=== PATIENT | female | born 1930 | race Caucasian/White ===

== ENCOUNTER 2016-12-24 09:19 | Inpatient (IN) | payer OTHER ==
--- NOTE | 2016-12-24 09:55 | PDOC ---
History of Present Illness - General History Source: Patient, Family Exam Limitations: No Limitations - History of Present Illness Initial Comments: 12/24/16 10:25 The patient is a 86 year old female, with a significant past medical history of hypertension and hyperlipidemia, who presents to the emergency department complaining of left leg and pelvic pain s/p mechanical fall last night. The patient reports she was walking down her hallway, when suddenly she fell. Patient reports she was unable to get up on her own, and asked for assistance from her children. She denies any head trauma or LOC. Patient reports left leg pain and pelvic pain radiating into back s/p fall. She reports difficulty ambulating. As per son, the patient went to bed hoping she would wake up better , but she continued to have leg pain and was brought to the ED. Son reports noting ecchymosis to the right ankle, but states patient is able to bare weight on her right leg and not her left leg. Patient reports taking advil with no relief. The patient denies any chest pain, shortness of breath, diaphoresis, or palpitations. The patient denies any fever, chills, headache, dizziness, or changes in vision. The patient is on 1 baby aspirin per day. Allergies: None reported. Past Surgical History: None reported. Social History: Non-smoker. Denies alcohol or drug use. PCP: Dr. Lindo <Kimberly Williamson - Last Filed: 12/24/16 15:56> <Melissa Grullon - Last Filed: 12/24/16 16:11> - General Chief Complaint: Injury Stated Complaint: FALL Time Seen by Provider: 12/24/16 09:27 Past History <Kimberly Williamson - Last Filed: 12/24/16 15:56> - Past Medical History HTN: Yes Hypercholesterolemia: Yes - Psycho/Social/Smoking Cessation Hx Anxiety: No Suicidal Ideation: No Smoking History: Never smoked Have you smoked in the past 12 months: No Information on smoking cessation initiated: No Hx Alcohol Use: No Drug/Substance Use Hx: No Substance Use Type: None <Melissa Grullon - Last Filed: 12/24/16 16:11> - Past Medical History Allergies/Adverse Reactions: Allergies Allergy/AdvReac Type Severity Reaction Status Date / Time No Known Allergies Allergy Verified 12/24/16 09:26 Home Medications: Ambulatory Orders Aspirin [ASA -] 81 mg PO DAILY 12/24/16 Lisinopril 0 mg PO DAILY 12/24/16 Nifedipine [Nifedipine ER] 60 mg PO DAILY 12/24/16 Review of Systems - Review of Systems Able to Perform ROS?: Yes Comments:: 12/24/16 10:25 GENERAL/CONSTITUTIONAL: No fever or chills. No weakness. HEAD, EYES, EARS, NOSE AND THROAT: No change in vision. No ear pain or discharge. No sore throat. CARDIOVASCULAR: No chest pain or shortness of breath. RESPIRATORY: No cough, wheezing, or hemoptysis. GASTROINTESTINAL: No nausea, vomiting, diarrhea or constipation. GENITOURINARY: No dysuria, frequency, or change in urination. MUSCULOSKELETAL: Yes: +left leg pain, +pelvic pain, +back pain. No neck pain. SKIN: +Ecchymosis to the right ankle. No rash NEUROLOGIC: No headache, vertigo, loss of consciousness, or change in strength/ sensation. ENDOCRINE: No increased thirst. No abnormal weight change. HEMATOLOGIC/LYMPHATIC: No anemia, easy bleeding, or history of blood clots. ALLERGIC/IMMUNOLOGIC: No hives or skin allergy. <Kimberly Williamson - Last Filed: 12/24/16 15:56> *Physical Exam - Vital Signs Last Vital Signs Temp Pulse Resp BP Pulse Ox 98.1 F 96 H 20 200/82 100 12/24/16 09:27 12/24/16 09:27 12/24/16 09:27 12/24/16 09:27 12/24/16 09:27 - Physical Exam Comments: 12/24/16 10:25 GENERAL: Awake, alert, and fully oriented, in no acute distress HEAD: No signs of trauma EYES: PERRLA, EOMI, sclera anicteric, conjunctiva clear ENT: Auricles normal inspection, hearing grossly normal, nares patent, oropharynx clear without exudates. Moist mucosa NECK: Normal ROM, supple, no lymphadenopathy, JVD, or masses LUNGS: Breath sounds equal, clear to auscultation bilaterally. No wheezes, and no crackles HEART: Regular rate and rhythm, normal S1 and S2, no murmurs, rubs or gallops ABDOMEN: Soft, nontender, normoactive bowel sounds. No guarding, no rebound. No masses EXTREMITIES: Pain is elicited on forward flexion of the left hip. Ecchymosis of the right ankle. Distal fibular tenderness. No edema. No clubbing or cyanosis. No cords, erythema, or tenderness NEUROLOGICAL: Cranial nerves II through XII grossly intact. Normal speech, normal gait SKIN: Warm, Dry, normal turgor, no rashes or lesions noted <Kimberly Williamson - Last Filed: 12/24/16 15:56> - Vital Signs Last Vital Signs Temp Pulse Resp BP Pulse Ox 98.1 F 96 H 20 200/82 100 12/24/16 09:27 12/24/16 09:27 12/24/16 09:27 12/24/16 09:27 12/24/16 09:27 <Melissa Grullon - Last Filed: 12/24/16 16:11> ED Treatment Course - LABORATORY CBC & Chemistry Diagram: 12/24/16 14:00 12/24/16 15:10 - RADIOLOGY Radiograph Interpretation: 12/24/16 10:54 EXAM: X-Ray Right Ankle/Foot INTERPRETED BY: Dr. Melendez REVIEWED BY: Dr. Grullon IMPRESSION: Loss of bone density. Degenerative changes. No acute fracture appreciated. If symptoms persist, further imaging and orthopedic consultation may be of help. EXAM: X-Ray Hip and Pelvis INTERPRETED BY: Dr. Melendez REVIEWED BY: Dr. Grullon IMPRESSION: Intact hips. Old fracture deformity right symphysis pubis. If symptoms persist, further imaging with CT may be of help. EXAM: CT Pelvis/ Lower Extremity INTERPRETED BY: Dr. Goodrich REVIEWED BY: Dr. Grullon IMPRESSION: Acute bilateral pelvic fractures are seen as discussed. No definite left hip fracture is identified. Mild extraperitoneal soft tissue stranding is seen along the left ventrolateral aspect of the lower third of the urinary bladder which could be on a posttraumatic basis. Correlate clinically. EXAM: CT Lumbar Spine INTERPRETED BY: Dr. Goodrich REVIEWED BY: Dr. Grullon IMPRESSION: No fracture is seen. Diffuse osteoporosis. Moderate to marked right L5-S1 degenerative facet arthropathy. - Medications Given in the ED: ED Medications Discontinued Medications Generic Name Dose Route Start Last Admin Trade Name Freq PRN Reason Stop Dose Admin Tramadol HCl 50 mg 12/24/16 09:59 12/24/16 10:10 Ultram - PO 12/24/16 10:00 50 mg ONCE ONE Administration <Kimberly Williamson - Last Filed: 12/24/16 15:56> - LABORATORY CBC & Chemistry Diagram: 12/24/16 14:00 12/24/16 15:10 <Melissa Grullon - Last Filed: 12/24/16 16:11> Medical Decision Making - Medical Decision Making 12/24/16 13:36 First call placed to Dr. Allen's office at 13:38. Awaiting call back. Second call placed to Dr. Allen's office at 13:52. Awaiting call back. Case discussed with PA instructional technology teacher at 15:52. First call placed to Dr. Cooper at 15:55. Awaiting call back. <Kimberly Williamson - Last Filed: 12/24/16 15:56> - Medical Decision Making 12/24/16 11:06 Reassessed. While I can reproduce the pain by having her range her left hip, I am not specifically able to palpate a tender area of the L-spine, pelvis, or hip. Will obtain CT, as patient is unable to walk, likely occult fx. 12/24/16 15:51 D/w ortho CAYLA Rizo. Will obtain MRI as per recommendations. I have called Dr. Cooper for admission, VM was full. Will contact through service. <Melissa Grullon - Last Filed: 12/24/16 16:11> *DC/Admit/Observation/Transfer - Attestations Scribe Attestion: 12/24/16 10:2 Documentation prepared by Kimberly Williamson, acting as ophthalmic medical technologist for Melissa Grullon MD. <Kimberly Williamson - Last Filed: 12/24/16 15:56> - Discharge Dispostion Admit: Yes <Melissa Grullon - Last Filed: 12/24/16 16:11> Diagnosis at time of Disposition: Pelvis fracture Qualifiers: Encounter type: initial encounter Pelvic bone location: unspecified part of pelvis Fracture type: closed Fracture alignment: nondisplaced Qualified Code(s) : S32.9XXA - Fracture of unspecified parts of lumbosacral spine and pelvis, initial encounter for closed fracture - Discharge Dispostion Condition at time of disposition: Stable - Referrals Referrals: Fly Lindo MD [Primary Care Provider] -
[2016-12-24] MEDS ORDERED: traMADol HCL 50 MG TABLET PO ONE (09:59)
[2016-12-24] MEDS ORDERED: traMADol HCL 50 MG TABLET ONE (10:04)
[2016-12-24 14:11] LABS: BASOPHIL 0.1 % (0-2.0); EOSINOPHIL 0.1 % (0-4.5); MCH 30.9 pg (25.7-33.7); MCHC 34.1 g/dl (32.0-36.0); MEAN CELL VOLUME 90.8 fl (80-96); MEAN PLT VOLUME 8.7 fl (7.5-11.1); NEUTROPHILS 85.5 % (42.8-82.8); PLATELET COUNT 258 K/MM3 (134-434); RDW 13.9 % (11.6-15.6); WHITE BLOOD COUNT 14.6 K/mm3 (4.0-10.0)
[2016-12-24 14:49] LABS: ALBUMIN 3.3 g/dl (3.4-5.0); ANION GAP 11 (8-16); CALCIUM 8.1 mg/dL (8.5-10.1); CO2 23 mmol/L (21-32); COCKROFT - GAULT 43.8515; CREATININE 0.8 mg/dL (0.55-1.02); GLUCOSE,RANDOM 196 mg/dL (74-106); SGOT/AST 45 U/L (15-37); SGPT/ALT 28 U/L (12-78); TOT PROT 7.5 g/dl (6.4-8.2)
[2016-12-24 14:50] LABS: ALK PHOS 119 U/L (45-117)
[2016-12-24] MEDS ORDERED: morphine CARPU-JECT 2 MG/1 ML DISP.SYRIN IVPUSH ONE (15:07)
[2016-12-24 15:27] LABS: INR 1.03 (0.82-1.09); PROTHROMBIN TIME (PATIENT) 11.3 SEC (9.98-11.88)
[2016-12-24 15:43] LABS: ALBUMIN 3.4 g/dl (3.4-5.0); CALCIUM 8.5 mg/dL (8.5-10.1); COCKROFT - GAULT 38.981; CREATININE 0.9 mg/dL (0.55-1.02)
[2016-12-24 15:45] LABS: BILIRUBIN,TOTAL 0.9 mg/dL (0.2-1.0); TOT PROT 7.3 g/dl (6.4-8.2)
[2016-12-24] MEDS ORDERED: morphine CARPU-JECT 2 MG/1 ML DISP.SYRIN ONE (16:01)
[2016-12-24 18:12] VITALS: BMI 21.7
[2016-12-24] MEDS: traMADol HCL 50 MG TABLET PO SCH (22:13)
--- NOTE | 2016-12-24 23:22 | HP ---
Admitting History and Physical - Primary Care Physician PCP: Dr Meenu Reynoso - Admission Chief Complaint: Fall, B/L Pelvic fracture History of Present Illness: 86 year old female, with a significant past medical history of hypertension and hyperlipidemia, who presents to the emergency department complaining of left leg and pelvic pain s/p mechanical fall last night. The patient reports she was walking down her hallway, when suddenly she fell. Patient reports she was unable to get up on her own, and asked for assistance from her children. She denies any head trauma or LOC. Patient reports left leg pain and pelvic pain radiating into back s/p fall. She reports difficulty ambulating. As per son, the patient went to bed hoping she would wake up better, but she continued to have leg pain and was brought to the ED. Son reports noting ecchymosis to the right ankle, but states patient is able to bare weight on her right leg and not her left leg. Patient reports taking advil with no relief. The patient denies any chest pain, shortness of breath, diaphoresis, or palpitations. The patient denies any fever, chills, headache, dizziness, or changes in vision. The patient is on 1 baby aspirin per day. History Source: Patient, Family Member Limitations to Obtaining History: No Limitations - Past Medical History CATERING SERVER: Yes: Dementia Gastrointestinal: Yes: Constipation ...: No - Past Surgical History Past Surgical History: Yes: None - Advance Directives Advance Directives: Yes: Living Will, Health Care Proxy - Smoking History Smoking history: Never smoked Have you smoked in the past 12 months: No - Alcohol/Substance Use Hx Alcohol Use: No Home Medications - Allergies Allergies/Adverse Reactions: Allergies Allergy/AdvReac Type Severity Reaction Status Date / Time No Known Allergies Allergy Verified 12/24/16 09:26 - Home Medications Home Medications: Ambulatory Orders Aspirin [ASA -] 81 mg PO DAILY 12/24/16 Lisinopril 10 mg PO BID 12/24/16 Nifedipine [Nifedipine ER] 60 mg PO DAILY 12/24/16 Review of Systems - Review of Systems Constitutional: reports: Weakness Eyes: reports: No Symptoms HENT: reports: No Symptoms Neck: reports: No Symptoms Cardiovascular: reports: No Symptoms Respiratory: reports: No Symptoms Gastrointestinal: reports: Constipation Genitourinary: reports: No Symptoms Musculoskeletal: reports: Muscle Pain, Other (Back pain, Hip pain) Neurological: reports: Confusion Physical Examination Vital Signs: Vital Signs Temperature 99.1 F 12/24/16 17:49 Pulse Rate 91 H 12/24/16 17:49 Respiratory Rate 21 12/24/16 17:49 Blood Pressure 188/75 12/24/16 17:49 O2 Sat by Pulse Oximetry (%) 95 12/24/16 17:05 Constitutional: Yes: No Distress Eyes: Yes: Conjunctiva Clear, EOM Intact HENT: Yes: Atraumatic, Normocephalic Neck: Yes: Supple, Trachea Midline Cardiovascular: Yes: Regular Rate and Rhythm, S1, S2 Respiratory: Yes: Regular, CTA Bilaterally Gastrointestinal: Yes: Normal Bowel Sounds, Soft Musculoskeletal: Yes: Muscle Weakness Edema: No Neurological: Yes: Alert, Cran Nerves II-XII Intact Problem List - Problems (1) Fall Code(s): W19.XXXA - UNSPECIFIED FALL, INITIAL ENCOUNTER (2) Pelvis fracture Code(s): S32.9XXA - FRACTURE OF UNSP PARTS OF LUMBOSACRAL SPINE AND PELVIS, INIT Qualifiers: Encounter type: initial encounter Pelvic bone location: unspecified part of pelvis Fracture type: closed Fracture alignment: nondisplaced Qualified Code(s): S32.9XXA - Fracture of unspecified parts of lumbosacral spine and pelvis, initial encounter for closed fracture (3) Sepsis Code(s): A41.9 - SEPSIS, UNSPECIFIED ORGANISM (4) Gait disorder Code(s): R26.9 - UNSPECIFIED ABNORMALITIES OF GAIT AND MOBILITY (5) Osteoporosis Code(s): M81.0 - AGE-RELATED OSTEOPOROSIS W/O CURRENT PATHOLOGICAL FRACTURE (6) Constipation by delayed colonic transit Code(s): K59.01 - SLOW TRANSIT CONSTIPATION Assessment/Plan (1) Fall Code(s): W19.XXXA - UNSPECIFIED FALL, INITIAL ENCOUNTER (2) Pelvis fracture: Ortho consult Code(s): S32.9XXA - FRACTURE OF UNSP PARTS OF LUMBOSACRAL SPINE AND PELVIS, INIT Qualifiers: Encounter type: initial encounter Pelvic bone location: unspecified part of pelvis Fracture type: closed Fracture alignment: nondisplaced Qualified Code(s): S32.9XXA - Fracture of unspecified parts of lumbosacral spine and pelvis, initial encounter for closed fracture (3) Sepsis: WBC 14 / UC pending Code(s): A41.9 - SEPSIS, UNSPECIFIED ORGANISM (4) Gait disorder Code(s): R26.9 - UNSPECIFIED ABNORMALITIES OF GAIT AND MOBILITY (5) Osteoporosis Code(s): M81.0 - AGE-RELATED OSTEOPOROSIS W/O CURRENT PATHOLOGICAL FRACTURE (6) Constipation by delayed colonic transit Code(s): K59.01 - SLOW TRANSIT CONSTIPATION
[2016-12-25 08:39] LABS: MCH 31.2 pg (25.7-33.7); MCHC 34.2 g/dl (32.0-36.0); MEAN CELL VOLUME 91.3 fl (80-96); MEAN PLT VOLUME 8.7 fl (7.5-11.1); PLATELET COUNT 206 K/MM3 (134-434); RDW 14.2 % (11.6-15.6); WHITE BLOOD COUNT 11.9 K/mm3 (4.0-10.0)
[2016-12-25 08:58] LABS: CALCIUM 8.7 mg/dL (8.5-10.1); COCKROFT - GAULT 33.49
[2016-12-25 09:08] LABS: TROPONIN I < 0.02 ng/ml (0.00-0.05)
[2016-12-25] MEDS: traMADol HCL 50 MG TABLET PO SCH ×2 (09:29→22:06)
[2016-12-25] MEDS: LISINOPRIL 10 MG TABLET (FP) PO SCH ×2 (09:29→22:05)
[2016-12-25] MEDS: NIFEdipine E.R 60 MG TABLET (UD) PO SCH (09:29)
[2016-12-25] MEDS: HEPARIN NA (PORCINE) 5,000 UNITS/ML 1ML VIAL SQ SCH ×2 (09:29→22:05)
--- NOTE | 2016-12-25 12:20 | EKG ---
Test Reason : Blood Pressure : / mmHG Vent. Rate : 092 BPM Atrial Rate : 092 BPM P-R Int : 168 ms QRS Dur : 082 ms QT Int : 392 ms P-R-T Axes : 075 051 093 degrees QTc Int : 484 ms SINUS RHYTHM WITH PREMATURE SUPRAVENTRICULAR COMPLEXES NONSPECIFIC ST AND T WAVE ABNORMALITY ABNORMAL ECG WHEN COMPARED WITH ECG OF 24-DEC-2016 13:39, PREMATURE VENTRICULAR COMPLEXES ARE NO LONGER PRESENT PREMATURE SUPRAVENTRICULAR COMPLEXES ARE NOW PRESENT Confirmed by LOREN KNOX MD ([id number]) on 12/25/2016 12:19:44 PM Referred By: ELISHA GUPTA Confirmed By:LOREN KNOX MD
--- NOTE | 2016-12-25 12:23 | CONSULT ---
Consult Consult Specialty:: infectious diseases Reason for Consultation:: leukocytosis - History of Present Illness Chief Complaint: pain History of Present Illness: 86 year old female, with a significant past medical history of hypertension and hyperlipidemia, admitted with left leg and pelvic pain s/p mechanical fall t. The patient reports she was walking down her hallway, when suddenly she fell. Patient reports she was unable to get up on her own, and asked for assistance from her children. patient denies any loss of consciousness any trauma to the head Injury to the ankle with bruising and ecchymosis patient took pain meds but did not feel relieved - History Source History Provided By: Patient Limitations to Obtaining History: No Limitations - Past Medical History ...: No - Alcohol/Substance Use Hx Alcohol Use: No - Smoking History Smoking history: Never smoked Have you smoked in the past 12 months: No Home Medications - Allergies Allergies/Adverse Reactions: Allergies Allergy/AdvReac Type Severity Reaction Status Date / Time No Known Allergies Allergy Verified 12/24/16 09:26 - Home Medications Home Medications: Ambulatory Orders Aspirin [ASA -] 81 mg PO DAILY 12/24/16 Lisinopril 0 mg PO DAILY 12/24/16 Nifedipine [Nifedipine ER] 60 mg PO DAILY 12/24/16 Review of Systems - Review of Systems Constitutional: reports: Other Eyes: reports: No Symptoms HENT: reports: No Symptoms Neck: reports: No Symptoms Cardiovascular: reports: No Symptoms Respiratory: reports: No Symptoms Gastrointestinal: reports: No Symptoms Genitourinary: reports: No Symptoms Musculoskeletal: reports: Extremity Pain, Joint Pain Integumentary: reports: No Symptoms Neurological: reports: No Symptoms Endocrine: reports: No Symptoms Hematology/Lymphatic: reports: No Symptoms Psychiatric: reports: No Symptoms Physical Exam Vital Signs: Vital Signs Temperature 98.2 F 12/25/16 08:42 Pulse Rate 92 H 12/25/16 08:42 Respiratory Rate 20 12/25/16 08:42 Blood Pressure 195/92 12/25/16 08:42 O2 Sat by Pulse Oximetry (%) 92 L 12/25/16 09:00 Constitutional: Yes: No Distress, Calm Neck: Yes: Supple Cardiovascular: Yes: Regular Rate and Rhythm Respiratory: Yes: Regular, CTA Bilaterally Gastrointestinal: Yes: Normal Bowel Sounds, Soft Musculoskeletal: Yes: Muscle Pain, Other Extremities: Yes: Other Neurological: Yes: Alert, Oriented Psychiatric: Yes: Alert, Oriented Labs: CBC, BMP 12/25/16 06:30 12/25/16 06:30 Imaging - Results Chest X-ray: Report Reviewed, Image Reviewed Cat Scan: Report Reviewed, Image Reviewed Assessment/Plan hip fracture r/o uti leukocytosis plan will await for urine cx to be back no abx at this moment
--- NOTE | 2016-12-25 12:30 | EKG ---
Test Reason : Blood Pressure : / mmHG Vent. Rate : 089 BPM Atrial Rate : 089 BPM P-R Int : 164 ms QRS Dur : 080 ms QT Int : 378 ms P-R-T Axes : 063 067 090 degrees QTc Int : 459 ms POOR DATA QUALITY, INTERPRETATION MAY BE ADVERSELY AFFECTED SINUS RHYTHM WITH OCCASIONAL PREMATURE VENTRICULAR COMPLEXES NONSPECIFIC ST ABNORMALITY ABNORMAL ECG WHEN COMPARED WITH ECG OF 08-JAN-2013 07:34, PREMATURE VENTRICULAR COMPLEXES ARE NOW PRESENT Confirmed by LOREN KNOX MD ([id number]) on 12/25/2016 12:29:54 PM Referred By: Confirmed By:LOREN KNOX MD
--- NOTE | 2016-12-25 12:37 | PN ---
Progress Note, Physician Chief Complaint: Fall/ Pelvic fracture History of Present Illness: 86 year old female, with a significant past medical history of hypertension and hyperlipidemia, who presents to the emergency department complaining of left leg and pelvic pain s/p mechanical fall last night. The patient reports she was walking down her hallway, when suddenly she fell. Patient reports she was unable to get up on her own, and asked for assistance from her children. She denies any head trauma or LOC. Patient reports left leg pain and pelvic pain radiating into back s/p fall. She reports difficulty ambulating. As per son, the patient went to bed hoping she would wake up better, but she continued to have leg pain and was brought to the ED. Son reports noting ecchymosis to the right ankle, but states patient is able to bare weight on her right leg and not her left leg. Patient reports taking advil with no relief. The patient denies any chest pain, shortness of breath, diaphoresis, or palpitations. The patient denies any fever, chills, headache, dizziness, or changes in vision. The patient is on 1 baby aspirin per day. - Current Medication List Current Medications: Active Medications Heparin Sodium (Porcine) (Heparin -) 5,000 unit SQ BID [facility] Last Admin: 12/25/16 09:29 Dose: 5,000 unit Lisinopril (Prinivil) 10 mg PO BID [facility] Last Admin: 12/25/16 09:29 Dose: 10 mg Nifedipine (Procardia Xl -) 60 mg PO DAILY [facility] Last Admin: 12/25/16 09:29 Dose: 60 mg Tramadol HCl (Ultram -) 50 mg PO BID [facility] Last Admin: 12/25/16 09:29 Dose: 50 mg - Objective Vital Signs: Vital Signs Temperature 98.2 F 12/25/16 08:42 Pulse Rate 92 H 12/25/16 08:42 Respiratory Rate 20 12/25/16 08:42 Blood Pressure 195/92 12/25/16 08:42 O2 Sat by Pulse Oximetry (%) 92 L 12/25/16 09:00 Constitutional: Yes: No Distress Eyes: Yes: Conjunctiva Clear, EOM Intact HENT: Yes: Atraumatic, Normocephalic Neck: Yes: Supple, Trachea Midline Cardiovascular: Yes: Regular Rate and Rhythm, S1, S2 Respiratory: Yes: Regular, CTA Bilaterally Gastrointestinal: Yes: Normal Bowel Sounds, Soft ...Rectal Exam: Yes: Deferred Musculoskeletal: Yes: Muscle Weakness Edema: No Neurological: Yes: Alert, Cran Nerves II-XII Intact Psychiatric: Yes: Alert Labs: CBC, BMP 12/25/16 06:30 12/25/16 06:30 INR, PTT INR 1.03 (0.82-1.09) 12/24/16 15:10 Problem List - Problems (1) Fall Code(s): W19.XXXA - UNSPECIFIED FALL, INITIAL ENCOUNTER (2) Pelvis fracture Code(s): S32.9XXA - FRACTURE OF UNSP PARTS OF LUMBOSACRAL SPINE AND PELVIS, INIT Qualifiers: Encounter type: initial encounter Pelvic bone location: unspecified part of pelvis Fracture type: closed Fracture alignment: nondisplaced Qualified Code(s): S32.9XXA - Fracture of unspecified parts of lumbosacral spine and pelvis, initial encounter for closed fracture (3) Gait disorder Code(s): R26.9 - UNSPECIFIED ABNORMALITIES OF GAIT AND MOBILITY (4) Constipation by delayed colonic transit Code(s): K59.01 - SLOW TRANSIT CONSTIPATION (5) Sepsis Code(s): A41.9 - SEPSIS, UNSPECIFIED ORGANISM (6) Osteoporosis Code(s): M81.0 - AGE-RELATED OSTEOPOROSIS W/O CURRENT PATHOLOGICAL FRACTURE Assessment/Plan (1) Fall Code(s): W19.XXXA - UNSPECIFIED FALL, INITIAL ENCOUNTER (2) Pelvis fracture: Ortho consult Code(s): S32.9XXA - FRACTURE OF UNSP PARTS OF LUMBOSACRAL SPINE AND PELVIS, INIT Qualifiers: Encounter type: initial encounter Pelvic bone location: unspecified part of pelvis Fracture type: closed Fracture alignment: nondisplaced Qualified Code(s): S32.9XXA - Fracture of unspecified parts of lumbosacral spine and pelvis, initial encounter for closed fracture (3) Sepsis: WBC 14 / UC pending Code(s): A41.9 - SEPSIS, UNSPECIFIED ORGANISM (4) Gait disorder Code(s): R26.9 - UNSPECIFIED ABNORMALITIES OF GAIT AND MOBILITY (5) Osteoporosis Code(s): M81.0 - AGE-RELATED OSTEOPOROSIS W/O CURRENT PATHOLOGICAL FRACTURE (6) Constipation by delayed colonic transit Code(s): K59.01 - SLOW TRANSIT CONSTIPATION
[2016-12-25 17:39] LABS: URINE APPEARANCE CLOUDY; URINE BILIRUBIN NEGATIVE (NEGATIVE); URINE COLOR AMBER; URINE GLUCOSE (UA) NEGATIVE (NEGATIVE); URINE KETONE TRACE (NEGATIVE); URINE NITRITE NEGATIVE (NEGATIVE); URINE UROBILINOGEN NEGATIVE E.U./dl (0.2-1.0)
[2016-12-25 17:40] LABS: URINE BLOOD 3+ (NEGATIVE); URINE LEUK ESTERASE 3+ (NEGATIVE); URINE PROTEIN 2+ (NEGATIVE)
[2016-12-25 17:43] LABS: URINE BACTERIA MANY /hpf (NONE SEEN); URINE HYALINE CAST 6 /lpf; URINE MUCUS RARE; URINE RBC 50 /hpf (0-3); URINE WBC 424 /hpf (3-5)
[2016-12-26] MEDS ORDERED: PT OWN MED DRAWER 7, Y5N ONE (10:15)
[2016-12-26] MEDS: LISINOPRIL 10 MG TABLET (FP) PO SCH ×2 (10:19→21:01)
[2016-12-26] MEDS: NIFEdipine E.R 60 MG TABLET (UD) PO SCH (10:19)
[2016-12-26] MEDS: traMADol HCL 50 MG TABLET PO SCH (10:19)
[2016-12-26] MEDS: HEPARIN NA (PORCINE) 5,000 UNITS/ML 1ML VIAL SQ SCH ×2 (10:19→21:00)
[2016-12-26] MEDS ORDERED: DOCUSATE SODIUM 100 MG CAPSULE (FP) PO ONE (12:15)
--- NOTE | 2016-12-26 13:04 | CONSULT ---
Consult - text type - Consultation Consultation Note: Orthopedic consult note: Patient seen and examined, chart and radiographs reviewed. S: 86F s/p mechanical fall, now with increased pain weight bearing on left leg. Patient denies any numbness/tingling to either lower extremity. Relates overall pain well controlled. O: Vital Signs Period Temp Pulse Resp BP Sys/Horne Pulse Ox Last 24 Hr 97.3 F-99.1 F 80-97 18-20 141-197/58-87 Radiographs: Xrays Pelvis/hips reveal no acute fracture. CT of the pelvis and left hip reveal Acute fracture of bilateral pelvic tubercles and inferior pubic rami with mild displacement of right pelvic tubercle. Lumbar CT reveals no acute fracture. MRI of the pelvis and left hip pending to r/o left hip fracture. GEN: Patient supine, HoB elevated 30 degrees, HACKETT/NAD/VSS/Afebrile, color good well appearing answering all questions appropriately. Family members at bedside. Lower Extremities: Mildly tender to palpation right pelvis, no pain with palpation right hip/femur. No pain with palpation of the left pelvis, left hip area. No pain with gentle range of motion of the bilateral hips including internal/external rotation. No calf pain or tenderness. Sensation intact to light touch throughout, neurovascularly intact distally. Pedal pulses x2 intact. Strength 3/5 EHL/FHL/TA/GS, patient with moderate dorsi/plantar flexion strength. Compliant with commands. A/P: 86F s/p Fall, multiple stable pelvic Fx, awaiting MRI Pelvis and Left Hip r /o Left hip Fracture. 1. Pain control. 2. Neuro checks B/L LE per unit routine 3. Maintain Bed rest until MRI resulted 4. Continue care per primary team 5. Case discussed with Dr. Allen who agrees with the above treatment plan
[2016-12-26] MEDS ORDERED: oxyCODONE HCL 5 MG TABLET PO ONE ×2 (14:10→17:45)
[2016-12-26] MEDS ORDERED: ACETAMINOPHEN 325 MG TABLET (FP) PO ONE ×2 (14:15→17:45)
--- NOTE | 2016-12-26 17:59 | PN ---
Progress Note, Physician History of Present Illness: doing well no new issues neuro seeing her for her tingling - Current Medication List Current Medications: Active Medications Acetaminophen (Tylenol -) 650 mg PO Q6H PRN PRN Reason: FEVER OR PAIN Docusate Sodium (Colace -) 300 mg PO HS [facility]IE Heparin Sodium (Porcine) (Heparin -) 5,000 unit SQ BID [facility] Last Admin: 12/26/16 10:19 Dose: 5,000 unit Lisinopril (Prinivil) 10 mg PO BID@0600,2200 KATIE Nifedipine (Procardia Xl -) 60 mg PO DAILY@0600 [facility] - Objective Vital Signs: Vital Signs Temperature 98.2 F 12/26/16 14:52 Pulse Rate 90 12/26/16 14:52 Respiratory Rate 16 12/26/16 14:52 Blood Pressure 139/88 12/26/16 14:52 O2 Sat by Pulse Oximetry (%) 92 L 12/25/16 09:00 Constitutional: Yes: No Distress, Calm Cardiovascular: Yes: Regular Rate and Rhythm Respiratory: Yes: Regular, CTA Bilaterally Gastrointestinal: Yes: Normal Bowel Sounds, Soft Musculoskeletal: Yes: Other Extremities: Yes: Other Neurological: Yes: Alert, Oriented Psychiatric: Yes: Alert, Oriented Labs: CBC, BMP 12/25/16 06:30 12/25/16 06:30 INR, PTT INR 1.03 (0.82-1.09) 12/24/16 15:10 Assessment/Plan hip fracture r/o uti leukocytosis plan awaiting urine cx to be back patient stable
--- NOTE | 2016-12-26 18:38 | CON.NEURO ---
Consult Consult Specialty:: Neurology Referred by:: Dr Cooper Reason for Consultation:: Abormal movements since tramadol was given monday night - History of Present Illness Chief Complaint: abnormal movement History of Present Illness: 86 Year old Female , history of hypertension and ? Hyperlipidemia, she was taking antihypertensive medication and aspirin at home. She is in good health and able to do daily activities at home. She never had any stroke, cardiac problem or cancer. She drinks one or two drink every night. She has fall and brought to hospital for pelvic pain and fracture. She was given tramadol and developed abnormal movement of face and pin rolling movement of both hands, more so on right side. her speech also have been slurred. Daughter also noticed that she is not moving her arm and leg on left side. she is able to swallow . no history of smoking - Past Medical History MEDICAL PSYCHOTHERAPIST: Yes: Dementia Gastrointestinal: Yes: Constipation ...: No - Past Surgical History Past Surgical History: Yes: None - Alcohol/Substance Use Hx Alcohol Use: No - Smoking History Smoking history: Never smoked Have you smoked in the past 12 months: No Home Medications - Allergies Allergies/Adverse Reactions: Allergies Allergy/AdvReac Type Severity Reaction Status Date / Time No Known Allergies Allergy Verified 12/24/16 09:26 - Home Medications Home Medications: Ambulatory Orders Aspirin [ASA -] 81 mg PO DAILY 12/24/16 Lisinopril 10 mg PO BID 12/24/16 Nifedipine [Nifedipine ER] 60 mg PO DAILY 12/24/16 Physical Exam-Neuro Vital Signs: Vital Signs Temperature 98.2 F 12/26/16 14:52 Pulse Rate 90 12/26/16 14:52 Respiratory Rate 16 12/26/16 14:52 Blood Pressure 139/88 12/26/16 14:52 O2 Sat by Pulse Oximetry (%) 92 L 12/25/16 09:00 Labs: CBC, BMP 12/25/16 06:30 12/25/16 06:30 INR, PTT INR 1.03 (0.82-1.09) 12/24/16 15:10 - Neuro Exam Level Of Consciousness: Yes: Alert Eyes: Yes: PERRLA Speech: Slurred Dominant Hand: Left Cranial Nerves II-XII Intact: No Gag: Present Response to light touch: Normal Movement Disorders: Involuntary Movements (She have dsyarthria and lip smacking movements were seen, and there is pin rolling movement on left side.) Motor Strength: 3/5: Left Leg, 4/5: Left Arm, 5/5: Right Arm, Right Leg Gait: Deferred, Other NIH Stroke Scale - Total Score NIH Stroke Scale Score: 0 Problem List - Problems (1) Stroke Code(s): I63.9 - CEREBRAL INFARCTION, UNSPECIFIED (2) Abnormal movement Code(s): G25.9 - EXTRAPYRAMIDAL AND MOVEMENT DISORDER, UNSPECIFIED Assessment/Plan 86 year old female history of htn, ? hyperlipidemia, non smoker, no cad , no dm , also taking baby aspirin at home. came with fall and left pelvic fracture . on examination found to have left hemiparesis , and abnormal movement move lips and pin rolling movement of left both hands. on examiantion nih score is 7 , able to swallow , one time bp was high and after starting bp medication is normal spoke to daughter and family do not wishes to do many test and be aggressive with treatment. Plan-- suggest to do ct head after mri of pelvis 2 . echo was ordered by pmd 3. 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 asprin 81 mg once ok from ortho 5. speech evaltion 6. PT for upper extremity, and for lower extremity to be cleared by ortho 7. add lipitor 20 mg once a day 8. I suspect she may have extrapyramidal reaction to tramadol, and suggest to give benadryl 25 mg iv once she comes back from mri , and if isaac oral and hand symptoms continue one dose can be given tomorrow am Feel free to call me if you have any question alma gardiner md
--- NOTE | 2016-12-26 18:42 | PN ---
Progress Note, Physician Chief Complaint: Fall/ Pelvic fracture History of Present Illness: 86 year old female, with a significant past medical history of hypertension and hyperlipidemia, who presents to the emergency department complaining of left leg and pelvic pain s/p mechanical fall last night. The patient reports she was walking down her hallway, when suddenly she fell. Patient reports she was unable to get up on her own, and asked for assistance from her children. She denies any head trauma or LOC. Patient reports left leg pain and pelvic pain radiating into back s/p fall. She reports difficulty ambulating. As per son, the patient went to bed hoping she would wake up better, but she continued to have leg pain and was brought to the ED. Son reports noting ecchymosis to the right ankle, but states patient is able to bare weight on her right leg and not her left leg. Patient reports taking advil with no relief. The patient denies any chest pain, shortness of breath, diaphoresis, or palpitations. The patient denies any fever, chills, headache, dizziness, or changes in vision. The patient is on 1 baby aspirin per day. - Current Medication List Current Medications: Active Medications Acetaminophen (Tylenol -) 650 mg PO Q6H PRN PRN Reason: FEVER OR PAIN Docusate Sodium (Colace -) 300 mg PO HS [facility] Heparin Sodium (Porcine) (Heparin -) 5,000 unit SQ BID [facility] Last Admin: 12/26/16 10:19 Dose: 5,000 unit Lisinopril (Prinivil) 10 mg PO BID@0600,2200 [facility] Nifedipine (Procardia Xl -) 60 mg PO DAILY@0600 [facility] - Objective Vital Signs: Vital Signs Temperature 98.2 F 12/26/16 14:52 Pulse Rate 90 12/26/16 14:52 Respiratory Rate 16 12/26/16 14:52 Blood Pressure 139/88 12/26/16 14:52 O2 Sat by Pulse Oximetry (%) 92 L 12/25/16 09:00 Constitutional: Yes: No Distress Eyes: Yes: Conjunctiva Clear, EOM Intact HENT: Yes: Atraumatic, Normocephalic Neck: Yes: Supple, Trachea Midline Cardiovascular: Yes: Regular Rate and Rhythm, S1, S2 Respiratory: Yes: Regular, CTA Bilaterally Gastrointestinal: Yes: Normal Bowel Sounds, Soft Edema: No Neurological: Yes: Alert, Cran Nerves II-XII Intact Labs: CBC, BMP 12/25/16 06:30 12/25/16 06:30 INR, PTT INR 1.03 (0.82-1.09) 12/24/16 15:10 Problem List - Problems (1) Fall Code(s): W19.XXXA - UNSPECIFIED FALL, INITIAL ENCOUNTER (2) Pelvis fracture Code(s): S32.9XXA - FRACTURE OF UNSP PARTS OF LUMBOSACRAL SPINE AND PELVIS, INIT Qualifiers: Encounter type: initial encounter Pelvic bone location: unspecified part of pelvis Fracture type: closed Fracture alignment: nondisplaced Qualified Code(s): S32.9XXA - Fracture of unspecified parts of lumbosacral spine and pelvis, initial encounter for closed fracture (3) Gait disorder Code(s): R26.9 - UNSPECIFIED ABNORMALITIES OF GAIT AND MOBILITY (4) Constipation by delayed colonic transit Code(s): K59.01 - SLOW TRANSIT CONSTIPATION (5) Sepsis Code(s): A41.9 - SEPSIS, UNSPECIFIED ORGANISM (6) Osteoporosis Code(s): M81.0 - AGE-RELATED OSTEOPOROSIS W/O CURRENT PATHOLOGICAL FRACTURE Assessment/Plan (1) Fall Code(s): W19.XXXA - UNSPECIFIED FALL, INITIAL ENCOUNTER (2) Pelvis fracture: Ortho consult Code(s): S32.9XXA - FRACTURE OF UNSP PARTS OF LUMBOSACRAL SPINE AND PELVIS, INIT Qualifiers: Encounter type: initial encounter Pelvic bone location: unspecified part of pelvis Fracture type: closed Fracture alignment: nondisplaced Qualified Code(s): S32.9XXA - Fracture of unspecified parts of lumbosacral spine and pelvis, initial encounter for closed fracture (3) Sepsis: WBC 14 / UC pending Code(s): A41.9 - SEPSIS, UNSPECIFIED ORGANISM (4) Gait disorder Code(s): R26.9 - UNSPECIFIED ABNORMALITIES OF GAIT AND MOBILITY (5) Osteoporosis Code(s): M81.0 - AGE-RELATED OSTEOPOROSIS W/O CURRENT PATHOLOGICAL FRACTURE (6) Constipation by delayed colonic transit Code(s): K59.01 - SLOW TRANSIT CONSTIPATION
[2016-12-26] MEDS: DOCUSATE SODIUM 100 MG CAPSULE (FP) PO SCH (21:00)
[2016-12-26] MEDS: ATORVASTATIN CA 20 MG TABLET (FP) PO SCH (21:01)
[2016-12-27] MEDS: LISINOPRIL 10 MG TABLET (FP) PO SCH ×2 (06:42→22:03)
[2016-12-27] MEDS: NIFEdipine E.R 60 MG TABLET (UD) PO SCH (07:01)
[2016-12-27] MEDS: ACETAMINOPHEN 325 MG TABLET (FP) PO PRN (09:47)
[2016-12-27 10:39] LABS: CALCIUM 8.4 mg/dL (8.5-10.1); COCKROFT - GAULT 30.43; CREATININE 1.1 mg/dL (0.55-1.02)
--- NOTE | 2016-12-27 11:36 | CONSULT ---
Admitting History and Physical - Primary Care Physician PCP: Noni Reynoso - Admission History of Present Illness: Per EMR: "86 year old female history of htn, ? hyperlipidemia, non smoker, no cad , no dm , also taking baby aspirin at home. came with fall and left pelvic fracture . on examination found to have left hemiparesis , and abnormal movement move lips and pin rolling movement of left both hands. on examiantion nih score is 7 , able to swallow , one time bp was high and after starting bp medication is normal spoke to daughter and family do not wishes to do many test and be aggressive with treatment. " History Source: Patient, Family Member, Medical Record Limitations to Obtaining History: Clinical Condition - Past Medical History Gastrointestinal: Yes: Constipation ...: No - Past Surgical History Past Surgical History: Yes: None - Advance Directives Advance Directives: Yes: Living Will, Health Care Proxy - Smoking History Smoking history: Never smoked Have you smoked in the past 12 months: No - Alcohol/Substance Use Hx Alcohol Use: No History - Admission Reason For Visit: PELVIS FRACTURE - Diagnostics X-ray: Report Reviewed CT Scan: Report Reviewed - General Mental Status: Alert and Oriented, Awake and Alert, Able to Follow Commands Attention: Intact Ability to Follow Directions: Excellent Head/Neck Control: Needs Assist - Hearing Hearing: Functional Hearing: Normal Speech Evaluation - Communication Primary Language: SAMMARINESE Communication: Yes: Dysarthria Oral Expression Ability: Yes: Moderate Impairment, Severe Impairment - Speech Production Dysarthria: Yes: Hypokinetic (Dyscoordination of respiration with phonation and articulation. Possibly extrapyramidal response to tramadol, now on hold.) Able to Make Needs Known: Yes: Moderately Impaired, Severely Impaired Intelligibility: Yes: Moderately Impaired, Severely Impaired - Speech Characteristics Voice Loudness: Excessive Variation Voice Pitch: Yes: Normal Voice Phonatory-based Quality: Yes: Normal, Loss of Voice, Dysphonia ( dyscoordination secondary to difficulty inspiring before phonating. Excellent stimulability.) Speech Pattern: Impaired Speech Clarity: < 25% Articulation: Yes: Precise Voice, Other Observations: Yes: Disordered Intonation, Inadequate Breath Support - Language/Auditory Comprehension Follows: Yes: Complex Commands Observation: Able to respond to yes/no queries: Yes, Yes/No Confusion: No, Comprehends Conversational Speech: Yes - Language/Verbal Expression Able to Respond to Simple Queries: Yes: Moderately Impaired, Severely Impaired Able to Communicate Wants and Needs: Yes: Moderately Impaired, Severely Impaired Functional Communication Status: Yes: Moderately Impaired, Severely Impaired - Memory/Perception intermodal customer service Memory: Yes: WNL Short Term Memory: Yes: WNL - Swallow Evaluation/Bedside Assessment Current Nutritional Intake: Regular, Thin Liquids Oral Secretions: Yes: WFL Dentition: Yes: Adequate Facial Symmetry at Rest: Symmetrical Facial Symmetry on Retraction: Symmetrical Against Resistance Opening: Normal Against Resistance Closing: Normal Pucker Lips: Normal Smile: Normal Lingual Movement: Symmetric Lingual Speed of Movement: Normal Lingual Movement Strgth Against Opposition: Normal Lingual Movement Characteristics: Normal Velopharyngeal Movement: Normal Laryngeal Elevation: WFL Laryngeal Movement: Able to Palpate Rate of Intake: WFL Bolus Size: WFL Labial Seal: WFL Chewing: WFL Oral Prep Time: WFL A-P Transit: WFL Timing of Swallow: WFL Coughing/Throat Clear: Yes (occasional) Recommendations - Speech Evaluation, Impression/Plan Impression: Dyscoordination of respiration with phonation and articulation, resulting in moderate to severe imairment of intelligibilty. Pt educated on inspiring first, producing one word at a time to improve coordination with excellent stimulabilty and improvement. Carryover limited but pt and daughters educated on speech drills to improved coordination/speech production. Possibly extrapyramidal response to tramadol, now on hold, per neurology. LUE weaker than right. Pill rolling noted. Cognition excellent. Risk of aspiration due to dyscoordination of respiration with deglutition. Recommended Therapies: Speech, Fluency, Voice, Volume, Speech Rate, Articulation Recommended Frequency for Therapy: 3-5 x Week - Dysphagia Impressions/Plan Dysphagia Impressions: Risk of Aspiration, Ongoing Evaluation *Silent aspiration: cannot be R/O at bedside Dysphagia Treatment Plan: Small Bites, Chin Tuck/Down, Safe Rate, 1/2 tsp. at a time, Elevate HOB during feed, Other (supervision with meals) Recommendations: Modified Barium Swallow (if congested, cough, throat clearing.)
[2016-12-27] MEDS: HEPARIN NA (PORCINE) 5,000 UNITS/ML 1ML VIAL SQ SCH ×2 (13:29→22:03)
[2016-12-27 13:46] LABS: BASOPHIL 0.6 % (0-2.0); EOSINOPHIL 0.2 % (0-4.5); MCH 29.7 pg (25.7-33.7); MCHC 32.2 g/dl (32.0-36.0); MEAN CELL VOLUME 92.4 fl (80-96); NEUTROPHILS 81.7 % (42.8-82.8); PLATELET COUNT 226 K/MM3 (134-434); WHITE BLOOD COUNT 11.4 K/mm3 (4.0-10.0)
--- NOTE | 2016-12-27 18:12 | PN ---
Progress Note, Physician History of Present Illness: patient looks much better no new issues eating - Current Medication List Current Medications: Active Medications Acetaminophen (Tylenol -) 650 mg PO Q6H PRN PRN Reason: FEVER OR PAIN Last Admin: 12/27/16 09:47 Dose: 650 mg Atorvastatin Calcium (Lipitor -) 20 mg PO [facility] Last Admin: 12/26/16 21:01 Dose: 20 mg Docusate Sodium (Colace -) 300 mg PO [facility] Last Admin: 12/26/16 21:00 Dose: 300 mg Heparin Sodium (Porcine) (Heparin -) 5,000 unit SQ BID [facility] Last Admin: 12/27/16 13:29 Dose: 5,000 unit Ceftriaxone Sodium 1 gm/ (Dextrose) 50 mls @ 100 mls/hr IVPB DAILY [facility] Lisinopril (Prinivil) 10 mg PO BID@0600,2200 [facility] Last Admin: 12/27/16 06:42 Dose: 10 mg Nifedipine (Procardia Xl -) 60 mg PO DAILY@0600 [facility] Last Admin: 12/27/16 07:01 Dose: 60 mg - Objective Vital Signs: Vital Signs Temperature 98.6 F 12/27/16 15:35 Pulse Rate 86 12/27/16 15:35 Respiratory Rate 16 12/27/16 15:35 Blood Pressure 141/56 12/27/16 15:35 O2 Sat by Pulse Oximetry (%) 92 L 12/27/16 09:00 Constitutional: Yes: No Distress, Calm Cardiovascular: Yes: Regular Rate and Rhythm Respiratory: Yes: Regular, CTA Bilaterally Gastrointestinal: Yes: Normal Bowel Sounds, Soft Musculoskeletal: Yes: Other Extremities: Yes: Other Neurological: Yes: Alert, Oriented Psychiatric: Yes: Alert, Oriented Labs: CBC, BMP 12/27/16 09:55 12/27/16 09:55 INR, PTT INR 1.03 (0.82-1.09) 12/24/16 15:10 Assessment/Plan hip fracture uti leukocytosis plan urine now showing bacteria started on abx will await for identification of organism rest as per ortho and primary team
[2016-12-27] MEDS: DOCUSATE SODIUM 100 MG CAPSULE (FP) PO SCH (22:02)
[2016-12-27] MEDS: ATORVASTATIN CA 20 MG TABLET (FP) PO SCH (22:02)
[2016-12-27] MEDS: CEFTRIAXONE 50 ML IVPB SCH (22:02)
[2016-12-27] MEDS: ZINC OXIDE 20% TOPICAL OINTMENT 30 GM TUBE TP SCH (22:03)
[2016-12-27] MEDS: BISACODYL 10 MG SUPP.RECT RC PRN (22:03)
[2016-12-28] MEDS: NIFEdipine E.R 60 MG TABLET (UD) PO SCH (06:17)
[2016-12-28] MEDS: LISINOPRIL 10 MG TABLET (FP) PO SCH ×2 (06:17→22:09)
[2016-12-28] MEDS: ACETAMINOPHEN 325 MG TABLET (FP) PO PRN ×3 (06:19→22:11)
[2016-12-28 07:56] LABS: BASOPHIL 0.4 % (0-2.0); EOSINOPHIL 1.6 % (0-4.5); MCH 30.5 pg (25.7-33.7); MEAN CELL VOLUME 92.6 fl (80-96); MEAN PLT VOLUME 8.6 fl (7.5-11.1); NEUTROPHILS 69.6 % (42.8-82.8); PLATELET COUNT 222 K/MM3 (134-434); RDW 14.1 % (11.6-15.6); WHITE BLOOD COUNT 10.2 K/mm3 (4.0-10.0)
[2016-12-28 08:30] LABS: CALCIUM 8.7 mg/dL (8.5-10.1); COCKROFT - GAULT 37.23; CREATININE 0.9 mg/dL (0.55-1.02)
[2016-12-28] MEDS: HEPARIN NA (PORCINE) 5,000 UNITS/ML 1ML VIAL SQ SCH ×2 (10:11→22:12)
[2016-12-28] MEDS: ASPIRIN COATED 81 MG TABLET.EC PO SCH (10:11)
[2016-12-28] MEDS: CEFTRIAXONE 50 ML IVPB SCH (10:11)
[2016-12-28] MEDS: ZINC OXIDE 20% TOPICAL OINTMENT 30 GM TUBE TP SCH ×2 (10:12→22:12)
--- NOTE | 2016-12-28 11:04 | PN ---
Progress Note, Physician History of Present Illness: stable no new issues family in room - Current Medication List Current Medications: Active Medications Acetaminophen (Tylenol -) 650 mg PO Q6H PRN PRN Reason: FEVER OR PAIN Last Admin: 12/28/16 06:19 Dose: 650 mg Aspirin (Ecotrin -) 81 mg PO DAILY [facility] Last Admin: 12/28/16 10:11 Dose: 81 mg Atorvastatin Calcium (Lipitor -) 20 mg PO HS [facility] Last Admin: 12/27/16 22:02 Dose: 20 mg Bisacodyl (Dulcolax Suppository -) 10 mg RC PRN PRN PRN Reason: CONSTIPATION Last Admin: 12/27/16 22:03 Dose: 10 mg Docusate Sodium (Colace -) 300 mg PO HS [facility] Last Admin: 12/27/16 22:02 Dose: 300 mg Heparin Sodium (Porcine) (Heparin -) 5,000 unit SQ BID [facility] Last Admin: 12/28/16 10:11 Dose: 5,000 unit Ceftriaxone Sodium (Rocephin 1gm Ivpb (Pre-Docked)) 50 mls @ 100 mls/hr IVPB DAILY [facility] Last Admin: 12/28/16 10:11 Dose: 100 mls/hr Lisinopril (Prinivil) 10 mg PO BID@0600,2200 [facility] Last Admin: 12/28/16 06:17 Dose: 10 mg Multi-Ingredient Ointment (Zinc Oxide) 1 applic TP BID [facility] Last Admin: 12/28/16 10:12 Dose: 1 applic Nifedipine (Procardia Xl -) 60 mg PO DAILY@0600 [facility] Last Admin: 12/28/16 06:17 Dose: 60 mg - Objective Vital Signs: Vital Signs Temperature 99.1 F 12/28/16 06:00 Pulse Rate 81 12/28/16 06:00 Respiratory Rate 18 12/28/16 06:00 Blood Pressure 196/72 12/28/16 06:00 O2 Sat by Pulse Oximetry (%) 92 L 12/27/16 21:00 Constitutional: Yes: No Distress, Calm Neck: Yes: Supple Cardiovascular: Yes: Regular Rate and Rhythm Respiratory: Yes: Regular, CTA Bilaterally Gastrointestinal: Yes: Normal Bowel Sounds, Soft Musculoskeletal: Yes: Other Extremities: Yes: Other Neurological: Yes: Alert, Oriented Psychiatric: Yes: Alert Labs: CBC, BMP 12/28/16 06:15 12/28/16 06:15 INR, PTT INR 1.03 (0.82-1.09) 12/24/16 15:10 Assessment/Plan hip fracture uti leukocytosis plan ecoli uti ivory sensitive continue abx rest as per primary/ortho
--- NOTE | 2016-12-28 15:32 | PN ---
Progress Note, IT BUSINESS PROCESS ARCHITECT - Note Progress Note: Pt presenting with Ataxia, hitting her left hand unintentionally on the table, with dysmetria observed. Able to write well with right hand. Feeding herself with left hand. Speech dyscoordination persists.With cues for inhalation before producing words , greatly improves intelligibilty. Language writing errors, unable to complete sentence. Tolerating diet well. Pt and family educated on speech and cognitive drills. f/u neurology r/o CVA. Suggest- [facility] for intensive PT,OT,Speech.
--- NOTE | 2016-12-28 16:31 | PN ---
Progress Note, Physician History of Present Illness: She is resting in bed. She denies any pain at rest. She states the pain she feels is in the the groin area with certain movements. - Current Medication List Current Medications: Active Medications Acetaminophen (Tylenol -) 650 mg PO Q6H PRN PRN Reason: FEVER OR PAIN Last Admin: 12/28/16 13:20 Dose: 650 mg Aspirin (Ecotrin -) 81 mg PO DAILY [facility] Last Admin: 12/28/16 10:11 Dose: 81 mg Atorvastatin Calcium (Lipitor -) 20 mg PO HS [facility] Last Admin: 12/27/16 22:02 Dose: 20 mg Bisacodyl (Dulcolax Suppository -) 10 mg RC PRN PRN PRN Reason: CONSTIPATION Last Admin: 12/27/16 22:03 Dose: 10 mg Docusate Sodium (Colace -) 300 mg PO HS [facility] Last Admin: 12/27/16 22:02 Dose: 300 mg Heparin Sodium (Porcine) (Heparin -) 5,000 unit SQ BID [facility] Last Admin: 12/28/16 10:11 Dose: 5,000 unit Ceftriaxone Sodium (Rocephin 1gm Ivpb (Pre-Docked)) 50 mls @ 100 mls/hr IVPB DAILY [facility] Last Admin: 12/28/16 10:11 Dose: 100 mls/hr Lisinopril (Prinivil) 10 mg PO BID@0600,2200 [facility] Last Admin: 12/28/16 06:17 Dose: 10 mg Multi-Ingredient Ointment (Zinc Oxide) 1 applic TP BID [facility] Last Admin: 12/28/16 10:12 Dose: 1 applic Nifedipine (Procardia Xl -) 60 mg PO DAILY@0600 [facility] Last Admin: 12/28/16 06:17 Dose: 60 mg - Objective Vital Signs: Vital Signs Temperature 98.6 F 12/28/16 14:26 Pulse Rate 86 12/28/16 14:26 Respiratory Rate 16 12/28/16 14:26 Blood Pressure 149/68 12/28/16 14:26 O2 Sat by Pulse Oximetry (%) 98 12/28/16 09:00 Constitutional: Yes: Well Nourished, No Distress, Calm HENT: Yes: Atraumatic, Normocephalic Extremities: Yes: Other (Pelvis: No open wounds. No tenderness to palpation. Smooth ROM of the hips bilateraly. No pain with motion. ROM 0-100 degrees of the hips. Smooth ROM of the knees and ankles. Compartments soft. NVID.) Labs: CBC, BMP 12/28/16 06:15 12/28/16 06:15 INR, PTT INR 1.03 (0.82-1.09) 12/24/16 15:10 Assessment/Plan #1 Right Pubic Ramus Fracture, No hip fracture -PT WBAT -pain control -DVT Prophaxisis -Please reconsult as needed
--- NOTE | 2016-12-28 17:36 | PN ---
Progress Note, Physician Chief Complaint: Fall/ Pelvic fracture History of Present Illness: 86 year old female, with a significant past medical history of hypertension and hyperlipidemia, who presents to the emergency department complaining of left leg and pelvic pain s/p mechanical fall last night. The patient reports she was walking down her hallway, when suddenly she fell. Patient reports she was unable to get up on her own, and asked for assistance from her children. She denies any head trauma or LOC. Patient reports left leg pain and pelvic pain radiating into back s/p fall. She reports difficulty ambulating. As per son, the patient went to bed hoping she would wake up better, but she continued to have leg pain and was brought to the ED. Son reports noting ecchymosis to the right ankle, but states patient is able to bare weight on her right leg and not her left leg. Patient reports taking advil with no relief. The patient denies any chest pain, shortness of breath, diaphoresis, or palpitations. The patient denies any fever, chills, headache, dizziness, or changes in vision. The patient is on 1 baby aspirin per day. - Current Medication List Current Medications: Active Medications Acetaminophen (Tylenol -) 650 mg PO Q6H PRN PRN Reason: FEVER OR PAIN Last Admin: 12/28/16 13:20 Dose: 650 mg Aspirin (Ecotrin -) 81 mg PO DAILY [facility] Last Admin: 12/28/16 10:11 Dose: 81 mg Atorvastatin Calcium (Lipitor -) 20 mg PO HS [facility] Last Admin: 12/27/16 22:02 Dose: 20 mg Bisacodyl (Dulcolax Suppository -) 10 mg RC PRN PRN PRN Reason: CONSTIPATION Last Admin: 12/27/16 22:03 Dose: 10 mg Docusate Sodium (Colace -) 300 mg PO HS [facility] Last Admin: 12/27/16 22:02 Dose: 300 mg Heparin Sodium (Porcine) (Heparin -) 5,000 unit SQ BID [facility] Last Admin: 12/28/16 10:11 Dose: 5,000 unit Ceftriaxone Sodium (Rocephin 1gm Ivpb (Pre-Docked)) 50 mls @ 100 mls/hr IVPB DAILY [facility] Last Admin: 12/28/16 10:11 Dose: 100 mls/hr Lisinopril (Prinivil) 10 mg PO BID@0600,2200 [facility] Last Admin: 12/28/16 06:17 Dose: 10 mg Multi-Ingredient Ointment (Zinc Oxide) 1 applic TP BID [facility] Last Admin: 12/28/16 10:12 Dose: 1 applic Nifedipine (Procardia Xl -) 60 mg PO DAILY@0600 [facility] Last Admin: 12/28/16 06:17 Dose: 60 mg - Objective Vital Signs: Vital Signs Temperature 98.6 F 12/28/16 14:26 Pulse Rate 86 12/28/16 14:26 Respiratory Rate 16 12/28/16 14:26 Blood Pressure 149/68 12/28/16 14:26 O2 Sat by Pulse Oximetry (%) 98 12/28/16 09:00 Constitutional: Yes: No Distress Eyes: Yes: Conjunctiva Clear, EOM Intact HENT: Yes: Atraumatic, Normocephalic Neck: Yes: Supple, Trachea Midline Cardiovascular: Yes: Regular Rate and Rhythm, S1, S2 Respiratory: Yes: Regular, CTA Bilaterally Gastrointestinal: Yes: Normal Bowel Sounds, Soft Edema: No Labs: CBC, BMP 12/28/16 06:15 12/28/16 06:15 INR, PTT INR 1.03 (0.82-1.09) 12/24/16 15:10 Problem List - Problems (1) Fall Code(s): W19.XXXA - UNSPECIFIED FALL, INITIAL ENCOUNTER (2) Pelvis fracture Code(s): S32.9XXA - FRACTURE OF UNSP PARTS OF LUMBOSACRAL SPINE AND PELVIS, INIT Qualifiers: Encounter type: initial encounter Pelvic bone location: unspecified part of pelvis Fracture type: closed Fracture alignment: nondisplaced Qualified Code(s): S32.9XXA - Fracture of unspecified parts of lumbosacral spine and pelvis, initial encounter for closed fracture (3) Gait disorder Code(s): R26.9 - UNSPECIFIED ABNORMALITIES OF GAIT AND MOBILITY (4) Constipation by delayed colonic transit Code(s): K59.01 - SLOW TRANSIT CONSTIPATION (5) Sepsis Code(s): A41.9 - SEPSIS, UNSPECIFIED ORGANISM (6) Osteoporosis Code(s): M81.0 - AGE-RELATED OSTEOPOROSIS W/O CURRENT PATHOLOGICAL FRACTURE Assessment/Plan (1) Fall Code(s): W19.XXXA - UNSPECIFIED FALL, INITIAL ENCOUNTER (2) Pelvis fracture: Ortho consult Code(s): S32.9XXA - FRACTURE OF UNSP PARTS OF LUMBOSACRAL SPINE AND PELVIS, INIT Qualifiers: Encounter type: initial encounter Pelvic bone location: unspecified part of pelvis Fracture type: closed Fracture alignment: nondisplaced Qualified Code(s): S32.9XXA - Fracture of unspecified parts of lumbosacral spine and pelvis, initial encounter for closed fracture (3) Sepsis/UTI: WBC 14 / UC :+ Code(s): A41.9 - SEPSIS, UNSPECIFIED ORGANISM (4) Gait disorder Code(s): R26.9 - UNSPECIFIED ABNORMALITIES OF GAIT AND MOBILITY (5) Osteoporosis Code(s): M81.0 - AGE-RELATED OSTEOPOROSIS W/O CURRENT PATHOLOGICAL FRACTURE (6) Constipation by delayed colonic transit Code(s): K59.01 - SLOW TRANSIT CONSTIPATION
--- NOTE | 2016-12-28 18:29 | PN ---
Progress Note (short form) - Note Progress Note: 86 Year old Female , history of hypertension and ? Hyperlipidemia, she was taking antihypertensive medication and aspirin at home. She is in good health and able to do daily activities at home. She never had any stroke, cardiac problem or cancer. She drinks one or two drink every night. She has fall and brought to hospital for pelvic pain and fracture. She was given tramadol and developed abnormal movement of face and pin rolling movement of both hands, more so on right side. her speech also have been slurred. Daughter also noticed that she is not moving her arm and leg on left side. she is able to swallow . no history of smoking she had ct scan done it was unremarkable. [facility]. she still continue to have left sided hemiparesis, and difficulty talking - Past Medical History INJECTION SPECIALIST: Yes: Dementia Gastrointestinal: Yes: Constipation ...: No - Past Surgical History Past Surgical History: Yes: None - Alcohol/Substance Use Hx Alcohol Use: No - Smoking History Smoking history: Never smoked Have you smoked in the past 12 months: No - Neuro Exam Level Of Consciousness: Yes: Alert Eyes: Yes: PERRLA Speech: Slurred Dominant Hand: Left Cranial Nerves II-XII Intact: No Gag: Present Response to light touch: Normal Movement Disorders: Involuntary Movements (She have dsyarthria and lip smacking movements were seen, and there is pin rolling movement on left side.) Motor Strength: 3/5: Left Leg, 4/5: Left Arm, 5/5: Right Arm, Right Leg Gait: Deferred, Other - Problems (1) Stroke Code(s): I63.9 - CEREBRAL INFARCTION, UNSPECIFIED (2) Abnormal movement Code(s): G25.9 - EXTRAPYRAMIDAL AND MOVEMENT DISORDER, UNSPECIFIED Assessment/Plan 86 year old female history of htn, ? hyperlipidemia, non smoker, no cad , no dm , also taking baby aspirin at home. came with fall and left pelvic fracture . on examination found to have left hemiparesis , and abnormal movement move lips and pin rolling movement of left both hands. on examiantion nih score is 8, able to swallow , spoke to daughter and family do not wishes to do many test and be aggressive with treatment. Plan-- mri of brain to confirm stroke 2. hold aggressive work up 3.continue aspirin and statin 4. a dose of benadryl 25 mg iv once can be given for treatment of abnormal movement and consider artane if continue . Feel free to call me if you have any question alma gardiner md Problem List - Problems (1) Stroke Code(s): I63.9 - CEREBRAL INFARCTION, UNSPECIFIED (2) Abnormal movement Code(s): G25.9 - EXTRAPYRAMIDAL AND MOVEMENT DISORDER, UNSPECIFIED
[2016-12-28] MEDS: DOCUSATE SODIUM 100 MG CAPSULE (FP) PO SCH (22:09)
[2016-12-28] MEDS: ATORVASTATIN CA 20 MG TABLET (FP) PO SCH (22:09)
[2016-12-29] MEDS: ACETAMINOPHEN 325 MG TABLET (FP) PO PRN ×3 (05:25→18:18)
[2016-12-29] MEDS: NIFEdipine E.R 60 MG TABLET (UD) PO SCH (05:27)
[2016-12-29] MEDS: LISINOPRIL 10 MG TABLET (FP) PO SCH ×2 (05:27→21:38)
[2016-12-29] MEDS ORDERED: PT OWN MED DRAWER 7, Y5N ONE ×2 (10:04→20:59)
[2016-12-29] MEDS: HEPARIN NA (PORCINE) 5,000 UNITS/ML 1ML VIAL SQ SCH ×2 (10:08→21:38)
[2016-12-29] MEDS: ASPIRIN COATED 81 MG TABLET.EC PO SCH (10:08)
[2016-12-29] MEDS: ZINC OXIDE 20% TOPICAL OINTMENT 30 GM TUBE TP SCH ×2 (10:09→21:42)
[2016-12-29] MEDS: CEFTRIAXONE 50 ML IVPB SCH (11:01)
--- NOTE | 2016-12-29 12:57 | PN ---
Progress Note, Physician History of Present Illness: stable no new issues family in room patient says she is doing well - Current Medication List Current Medications: Active Medications Acetaminophen (Tylenol -) 650 mg PO Q6H PRN PRN Reason: FEVER OR PAIN Last Admin: 12/29/16 12:54 Dose: 650 mg Aspirin (Ecotrin -) 81 mg PO DAILY [facility] Last Admin: 12/29/16 10:08 Dose: 81 mg Atorvastatin Calcium (Lipitor -) 20 mg PO HS [facility] Last Admin: 12/28/16 22:09 Dose: 20 mg Bisacodyl (Dulcolax Suppository -) 10 mg RC PRN PRN PRN Reason: CONSTIPATION Last Admin: 12/27/16 22:03 Dose: 10 mg Docusate Sodium (Colace -) 300 mg PO HS [facility] Last Admin: 12/28/16 22:09 Dose: 300 mg Heparin Sodium (Porcine) (Heparin -) 5,000 unit SQ BID [facility] Last Admin: 12/29/16 10:08 Dose: 5,000 unit Ceftriaxone Sodium (Rocephin 1gm Ivpb (Pre-Docked)) 50 mls @ 100 mls/hr IVPB DAILY [facility] Last Admin: 12/29/16 11:01 Dose: 100 mls/hr Lisinopril (Prinivil) 10 mg PO BID@0600,2200 [facility] Last Admin: 12/29/16 05:27 Dose: 10 mg Multi-Ingredient Ointment (Zinc Oxide) 1 applic TP BID [facility] Last Admin: 12/29/16 10:09 Dose: 1 applic Nifedipine (Procardia Xl -) 60 mg PO DAILY@0600 [facility] Last Admin: 12/29/16 05:27 Dose: 60 mg - Objective Vital Signs: Vital Signs Temperature 97.9 F 12/29/16 08:10 Pulse Rate 91 H 12/29/16 08:10 Respiratory Rate 23 12/29/16 08:10 Blood Pressure 172/78 12/29/16 08:10 O2 Sat by Pulse Oximetry (%) 98 12/28/16 09:00 Constitutional: Yes: No Distress, Calm Neck: Yes: Supple Cardiovascular: Yes: Regular Rate and Rhythm Respiratory: Yes: Regular, CTA Bilaterally Gastrointestinal: Yes: Normal Bowel Sounds, Soft Musculoskeletal: Yes: Other Extremities: Yes: Other (leg pain) Neurological: Yes: Alert, Oriented Labs: CBC, BMP 12/28/16 06:15 12/28/16 06:15 INR, PTT INR 1.03 (0.82-1.09) 12/24/16 15:10 Assessment/Plan hip fracture uti leukocytosis plan ecoli uti ivory sensitive continue abx rest as per primary/ortho
--- NOTE | 2016-12-29 16:05 | PN ---
Progress Note, DELIVERY MGR - Note Progress Note: (+) cva on MRI. Selected Entries 12/28/16 12/28/16 12/28/16 06:00 10:00 12:19 Breakfast 75% Lunch Supper Temperature 99.1 F 98.6 F 12/28/16 12/28/16 12/28/16 14:26 16:15 20:22 Breakfast Lunch 75% Supper 75% Temperature 98.6 F 98.4 F 12/29/16 12/29/16 12/29/16 07:36 08:10 11:16 Breakfast 75% Lunch Supper Temperature 99.1 F 97.9 F 12/29/16 14:51 Breakfast Lunch 75% Supper Temperature 99.3 F Speech improving with speech drills and practice. Excellent rehab candidate. Reviewed with family and [facility].
--- NOTE | 2016-12-29 17:56 | PN ---
Progress Note, Physician Chief Complaint: Fall/ Pelvic fracture History of Present Illness: 86 year old female, with a significant past medical history of hypertension and hyperlipidemia, who presents to the emergency department complaining of left leg and pelvic pain s/p mechanical fall last night. The patient reports she was walking down her hallway, when suddenly she fell. Patient reports she was unable to get up on her own, and asked for assistance from her children. She denies any head trauma or LOC. Patient reports left leg pain and pelvic pain radiating into back s/p fall. She reports difficulty ambulating. As per son, the patient went to bed hoping she would wake up better, but she continued to have leg pain and was brought to the ED. Son reports noting ecchymosis to the right ankle, but states patient is able to bare weight on her right leg and not her left leg. Patient reports taking advil with no relief. The patient denies any chest pain, shortness of breath, diaphoresis, or palpitations. The patient denies any fever, chills, headache, dizziness, or changes in vision. The patient is on 1 baby aspirin per day. - Current Medication List Current Medications: Active Medications Acetaminophen (Tylenol -) 650 mg PO Q6H PRN PRN Reason: FEVER OR PAIN Last Admin: 12/29/16 12:54 Dose: 650 mg Aspirin (Ecotrin -) 81 mg PO DAILY [facility] Last Admin: 12/29/16 10:08 Dose: 81 mg Atorvastatin Calcium (Lipitor -) 20 mg PO HS [facility] Last Admin: 12/28/16 22:09 Dose: 20 mg Bisacodyl (Dulcolax Suppository -) 10 mg RC PRN PRN PRN Reason: CONSTIPATION Last Admin: 12/27/16 22:03 Dose: 10 mg Docusate Sodium (Colace -) 300 mg PO HS [facility] Last Admin: 12/28/16 22:09 Dose: 300 mg Heparin Sodium (Porcine) (Heparin -) 5,000 unit SQ BID [facility] Last Admin: 12/29/16 10:08 Dose: 5,000 unit Ceftriaxone Sodium (Rocephin 1gm Ivpb (Pre-Docked)) 50 mls @ 100 mls/hr IVPB DAILY [facility] Last Admin: 12/29/16 11:01 Dose: 100 mls/hr Lisinopril (Prinivil) 10 mg PO BID@0600,2200 [facility] Last Admin: 12/29/16 05:27 Dose: 10 mg Multi-Ingredient Ointment (Zinc Oxide) 1 applic TP BID [facility] Last Admin: 12/29/16 10:09 Dose: 1 applic Nifedipine (Procardia Xl -) 60 mg PO DAILY@0600 [facility] Last Admin: 12/29/16 05:27 Dose: 60 mg - Objective Vital Signs: Vital Signs Temperature 99.3 F 12/29/16 14:51 Pulse Rate 92 H 12/29/16 14:51 Respiratory Rate 20 12/29/16 14:51 Blood Pressure 164/76 12/29/16 14:51 O2 Sat by Pulse Oximetry (%) 98 12/28/16 09:00 Constitutional: Yes: No Distress Eyes: Yes: Conjunctiva Clear, EOM Intact HENT: Yes: Atraumatic, Normocephalic Neck: Yes: Supple, Trachea Midline Cardiovascular: Yes: Regular Rate and Rhythm, S1, S2 Respiratory: Yes: Regular, CTA Bilaterally Gastrointestinal: Yes: Normal Bowel Sounds, Soft Edema: No Labs: CBC, BMP 12/28/16 06:15 12/28/16 06:15 INR, PTT INR 1.03 (0.82-1.09) 12/24/16 15:10 Problem List - Problems (1) Fall Code(s): W19.XXXA - UNSPECIFIED FALL, INITIAL ENCOUNTER (2) Pelvis fracture Code(s): S32.9XXA - FRACTURE OF UNSP PARTS OF LUMBOSACRAL SPINE AND PELVIS, INIT Qualifiers: Encounter type: initial encounter Pelvic bone location: unspecified part of pelvis Fracture type: closed Fracture alignment: nondisplaced Qualified Code(s): S32.9XXA - Fracture of unspecified parts of lumbosacral spine and pelvis, initial encounter for closed fracture (3) Gait disorder Code(s): R26.9 - UNSPECIFIED ABNORMALITIES OF GAIT AND MOBILITY (4) Constipation by delayed colonic transit Code(s): K59.01 - SLOW TRANSIT CONSTIPATION (5) Sepsis Code(s): A41.9 - SEPSIS, UNSPECIFIED ORGANISM (6) Osteoporosis Code(s): M81.0 - AGE-RELATED OSTEOPOROSIS W/O CURRENT PATHOLOGICAL FRACTURE (7) Stroke Code(s): I63.9 - CEREBRAL INFARCTION, UNSPECIFIED Assessment/Plan (1) Fall Code(s): W19.XXXA - UNSPECIFIED FALL, INITIAL ENCOUNTER (2) Pelvis fracture: Ortho consult Code(s): S32.9XXA - FRACTURE OF UNSP PARTS OF LUMBOSACRAL SPINE AND PELVIS, INIT Qualifiers: Encounter type: initial encounter Pelvic bone location: unspecified part of pelvis Fracture type: closed Fracture alignment: nondisplaced Qualified Code(s): S32.9XXA - Fracture of unspecified parts of lumbosacral spine and pelvis, initial encounter for closed fracture (3) Sepsis/UTI: WBC 14 / UC :+ Code(s): A41.9 - SEPSIS, UNSPECIFIED ORGANISM (4) Gait disorder Code(s): R26.9 - UNSPECIFIED ABNORMALITIES OF GAIT AND MOBILITY (5) Osteoporosis Code(s): M81.0 - AGE-RELATED OSTEOPOROSIS W/O CURRENT PATHOLOGICAL FRACTURE (6) Constipation by delayed colonic transit Code(s): K59.01 - SLOW TRANSIT CONSTIPATION (7) Stroke: Rt RADHA Territory Code(s): I63.9 - CEREBRAL INFARCTION, UNSPECIFIED
[2016-12-29] MEDS: DOCUSATE SODIUM 100 MG CAPSULE (FP) PO SCH (21:36)
[2016-12-29] MEDS: ATORVASTATIN CA 20 MG TABLET (FP) PO SCH (21:38)
[2016-12-30] MEDS: ACETAMINOPHEN 325 MG TABLET (FP) PO PRN ×2 (05:20→13:07)
[2016-12-30] MEDS: NIFEdipine E.R 60 MG TABLET (UD) PO SCH (05:20)
[2016-12-30] MEDS: LISINOPRIL 10 MG TABLET (FP) PO SCH ×2 (05:20→22:22)
--- NOTE | 2016-12-30 09:02 | PN ---
Progress Note (short form) - Note Progress Note: 86 Year old Female , history of hypertension and ? Hyperlipidemia, she was taking antihypertensive medication and aspirin at home. She is in good health and able to do daily activities at home. She never had any stroke, cardiac problem or cancer. She drinks one or two drink every night. She has fall and brought to hospital for pelvic pain and fracture. She was given tramadol and developed abnormal movement of face and pin rolling movement of both hands, more so on right side. her speech also have been slurred. Daughter also noticed that she is not moving her arm and leg on left side. she is able to swallow . no history of smoking she had ct scan done it was unremarkable. now she is back to [facility] [place] and statin was started. 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) Motor Strength: 3/5: Left Leg, 4+/5: Left Arm, 5/5: Right Arm, Right Leg Gait: Deferred, Other - Problems (1) Stroke Code(s): I63.9 - CEREBRAL INFARCTION, UNSPECIFIED (2) Abnormal movement Code(s): G25.9 - EXTRAPYRAMIDAL AND MOVEMENT DISORDER, UNSPECIFIED Assessment/Plan 86 year old female history of htn, ? hyperlipidemia, non smoker, no cad , no dm , also taking baby aspirin at home. came with fall and left pelvic fracture . on examination found to have left hemiparesis , and abnormal movement move lips and pin rolling movement of left both hands. on examiantion nih score is 8, able to swallow , Mri of brain reviewed and it showed right RADHA stroke Plan- -. hold aggressive work up, waiting for placement -.continue aspirin and statin - hold artane as abnormal movement are getting better, if continue consider low dose artane Mri of brain was showed to family and over all prognosis was discussed Feel free to call me if you have any question alma gardiner md Problem List - Problems (1) Stroke Code(s): I63.9 - CEREBRAL INFARCTION, UNSPECIFIED (2) Abnormal movement Code(s): G25.9 - EXTRAPYRAMIDAL AND MOVEMENT DISORDER, UNSPECIFIED Problem List - Problems (1) Stroke Code(s): I63.9 - CEREBRAL INFARCTION, UNSPECIFIED (2) Abnormal movement Code(s): G25.9 - EXTRAPYRAMIDAL AND MOVEMENT DISORDER, UNSPECIFIED
[2016-12-30] MEDS ORDERED: PT OWN MED DRAWER 7, Y5N ONE (09:59)
[2016-12-30] MEDS: CEFTRIAXONE 50 ML IVPB SCH (10:06)
[2016-12-30] MEDS: ASPIRIN COATED 81 MG TABLET.EC PO SCH (10:06)
[2016-12-30] MEDS: HEPARIN NA (PORCINE) 5,000 UNITS/ML 1ML VIAL SQ SCH ×2 (10:06→22:22)
[2016-12-30] MEDS: ZINC OXIDE 20% TOPICAL OINTMENT 30 GM TUBE TP SCH ×2 (10:08→22:22)
--- NOTE | 2016-12-30 13:57 | PN ---
Progress Note, Physician History of Present Illness: stable no new events plan for conservative treatment by ortho neuro note noted - Current Medication List Current Medications: Active Medications Acetaminophen (Tylenol -) 650 mg PO Q6H PRN PRN Reason: FEVER OR PAIN Last Admin: 12/30/16 13:07 Dose: 650 mg Aspirin (Ecotrin -) 81 mg PO DAILY [facility] Last Admin: 12/30/16 10:06 Dose: 81 mg Atorvastatin Calcium (Lipitor -) 20 mg PO HS [facility] Last Admin: 12/29/16 21:38 Dose: 20 mg Bisacodyl (Dulcolax Suppository -) 10 mg RC PRN PRN PRN Reason: CONSTIPATION Last Admin: 12/27/16 22:03 Dose: 10 mg Docusate Sodium (Colace -) 300 mg PO HS [facility] Last Admin: 12/29/16 21:36 Dose: Not Given Heparin Sodium (Porcine) (Heparin -) 5,000 unit SQ BID [facility] Last Admin: 12/30/16 10:06 Dose: 5,000 unit Ceftriaxone Sodium (Rocephin 1gm Ivpb (Pre-Docked)) 50 mls @ 100 mls/hr IVPB DAILY [facility] Last Admin: 12/30/16 10:06 Dose: 100 mls/hr Lisinopril (Prinivil) 10 mg PO BID@0600,2200 [facility] Last Admin: 12/30/16 05:20 Dose: 10 mg Multi-Ingredient Ointment (Zinc Oxide) 1 applic TP BID [facility] Last Admin: 12/30/16 10:08 Dose: 1 applic Nifedipine (Procardia Xl -) 60 mg PO DAILY@0600 [facility] Last Admin: 12/30/16 05:20 Dose: 60 mg - Objective Vital Signs: Vital Signs Temperature 97.9 F 12/30/16 07:45 Pulse Rate 100 H 12/30/16 07:45 Respiratory Rate 24 12/30/16 07:45 Blood Pressure 173/75 12/30/16 07:45 O2 Sat by Pulse Oximetry (%) 98 12/28/16 09:00 Constitutional: Yes: No Distress, Calm Cardiovascular: Yes: Regular Rate and Rhythm Respiratory: Yes: Regular, CTA Bilaterally Gastrointestinal: Yes: Normal Bowel Sounds, Soft Musculoskeletal: Yes: Other Extremities: Yes: Other Neurological: Yes: Alert Psychiatric: Yes: Alert Labs: CBC, BMP 12/28/16 06:15 12/28/16 06:15 INR, PTT INR 1.03 (0.82-1.09) 12/24/16 15:10 Assessment/Plan hip fracture uti leukocytosis plan ecoli uti ivory sensitive continue abx can stop it after tomorrows dose rest as per primary/ortho
--- NOTE | 2016-12-30 14:00 | CONS ---
DATE OF CONSULTATION: 12/30/2016 REFERRING PHYSICIAN: Noni Reynoso MD HISTORY OF PRESENT ILLNESS: The patient is an 86-year-old woman who apparently was doing very well functionally with a history of hypertension, hyperlipidemia who was admitted following a fall. The patient underwent multiple imaging studies including an MRI of the pelvis, which revealed bilateral pelvic fractures and a left sacral fracture. The patient also complained of weakness in the left upper limb and left lower limb, and MRI showed a right frontal to parietal acute subacute infarct in the anterior circulation. Ultrasound of the carotids was negative. Patient is undergoing speech therapy as well as physical therapy. Blood work on admission showed mild leukocytosis 14.6, hemoglobin 12.3, platelet count 258. Chemistry showed a slightly low sodium 133, BUN 15, creatinine 0.8, normal potassium 4, albumin slightly low at 3.3, and troponin less than 0.02. The patient had repeat blood work done December 28, which showed improvement in WBCs to 10.2, stable hemoglobin 11.7, stable platelet count 222, elevated BUN 29, and creatinine 0.9. Her hemoglobin A1C was notable high at 7.8. Improvement in sodium to 137. The patient has speech abnormalities and was seen by speech pathology, Selena Patel, and receiving speech therapy. The patient was on subcutaneous heparin for deep vein thrombosis prophylaxis. PAST MEDICAL HISTORY: As above. Hyperlipidemia, hypertension, cataracts. PAST SURGICAL HISTORY: As above. SOCIAL HISTORY: The patient lives with family in private house. She has about 12 steps to get in. Premorbidly she states she was independent, ambulatory without assistive device. Current function, patient is seen by physical therapy and needs moderate assist of 2 for stand-pivot transfer, sit to stand moderate assist of 2 , supine to sit minimal assist of 2. REVIEW OF SYSTEMS: No lightheadedness, dizziness. No headache. No blurry vision or double vision. Again, she has difficulty with speech. No difficulty swallowing or chewing. No cough with swallowing. No chest pain or shortness of breath. No abdominal pain. No fever or chills. She does have pain in the pelvis left more than right as well as weakness in the left arm and left leg. No numbness or tingling. No other joint arthralgias. No skin rash or breakdown. She is frustrating regarding the word finding difficulties in speech. PHYSICAL EXAMINATION: General: The patient is an elderly woman seen lying in bed. Again, she is frustrated but in no acute distress. HEENT: She is normocephalic and atraumatic. Her extraocular muscles appear intact. She has no obvious facial weakness. No ulcers. Dry mucous membranes. Neck: Supple. Extremities: Without any pitting edema or calf tenderness. Skin: Without any rash or breakdown. Neuromuscular: She is awake, alert, and cooperative. Again, she does have word finding difficulties at times and answers more yes/no than complete answers at times, but her cranial nerves 2-12 appear grossly intact. She has weakness mild in the left upper extremity 4+/5 but good control. More weakness in the left lower extremity both proximally and distally. The right lower extremity has good distal strength dorsiflexion, plantar flexion, and at least 4/5 knee extension but proximal weakness due to pain. The left side is only 2/5-3/5 throughout the left lower extremity. She has normal sensation to pinprick in the upper and lower extremities. Toes equivocal. No advanced osteoarthritic change. Unable to stand or ambulate her as she is nonambulatory at this time. OVERALL IMPRESSION: 1. Deficits in mobility and activities of daily living multifactorial. 2. Cerebrovascular accident with left hemiparesis, nondominant. 3. Speech apraxia or aphasia. 4. No evidence of dysphagia. 5. Pelvic fracture status post fall. 6. Elevated risk for deep vein thrombosis due to immobility. 7. Elevated risk for decubitus ulcer due to immobility. 8. History of hypertension. 9. Hyperlipidemia. 10. Status post hyponatremia. 11. Leukocytosis, improving. 12. Elevated hemoglobin A1C. PLAN/SUGGESTION: 1. Physical therapy to continue bedside including bed mobility, transfers as able, gait training, strengthening of the left upper and bilateral lower extremities. Family training as appropriate. 2. Weightbearing as tolerated bilateral lower limbs. 3. Speech pathology follow up. 4. Agree with subcutaneous heparin. 5. Monitor sacrum and heels closely for erythema or skin breakdown. 6. Pain control. Would avoid narcotics as able. 7. Cardiopulmonary precaution. 8. Safety fall precaution. 9. Patient is an excellent candidate for inpatient rehabilitation and requires physical and occupational therapy as well as speech therapy. Consider acute inpatient rehabilitation at a facility such as [facility], or [facility]. Thank you for this referral. CECILIA SHARP M.D. PARI/[id number] MTDD
--- NOTE | 2016-12-30 14:51 | PN ---
Progress Note, FINGERPRINT EXPERT - Note Progress Note: Speech improving significantly with use of compensatory strategies, and now spontaneously. Still with some ataxic/apraxic speech pattern. :Less pill rolling and better ability to coordinate touching nose with left hand. Tolerating diet. Reviewed strategies to improve ST memory. Appreciate PMR consult. Pt medically accepted at [facility], per [facility].
--- NOTE | 2016-12-30 15:38 | PN ---
Progress Note, Physician Chief Complaint: Fall/ Pelvic fracture History of Present Illness: 86 year old female, with a significant past medical history of hypertension and hyperlipidemia, who presents to the emergency department complaining of left leg and pelvic pain s/p mechanical fall last night. The patient reports she was walking down her hallway, when suddenly she fell. Patient reports she was unable to get up on her own, and asked for assistance from her children. She denies any head trauma or LOC. Patient reports left leg pain and pelvic pain radiating into back s/p fall. She reports difficulty ambulating. As per son, the patient went to bed hoping she would wake up better, but she continued to have leg pain and was brought to the ED. Son reports noting ecchymosis to the right ankle, but states patient is able to bare weight on her right leg and not her left leg. Patient reports taking advil with no relief. The patient denies any chest pain, shortness of breath, diaphoresis, or palpitations. The patient denies any fever, chills, headache, dizziness, or changes in vision. The patient is on 1 baby aspirin per day. - Current Medication List Current Medications: Active Medications Acetaminophen (Tylenol -) 650 mg PO Q6H PRN PRN Reason: FEVER OR PAIN Last Admin: 12/30/16 13:07 Dose: 650 mg Aspirin (Ecotrin -) 81 mg PO DAILY [facility] Last Admin: 12/30/16 10:06 Dose: 81 mg Atorvastatin Calcium (Lipitor -) 20 mg PO HS [facility] Last Admin: 12/29/16 21:38 Dose: 20 mg Bisacodyl (Dulcolax Suppository -) 10 mg RC PRN PRN PRN Reason: CONSTIPATION Last Admin: 12/27/16 22:03 Dose: 10 mg Docusate Sodium (Colace -) 300 mg PO HS [facility] Last Admin: 12/29/16 21:36 Dose: Not Given Heparin Sodium (Porcine) (Heparin -) 5,000 unit SQ BID [facility] Last Admin: 12/30/16 10:06 Dose: 5,000 unit Ceftriaxone Sodium (Rocephin 1gm Ivpb (Pre-Docked)) 50 mls @ 100 mls/hr IVPB DAILY [facility] Last Admin: 12/30/16 10:06 Dose: 100 mls/hr Lisinopril (Prinivil) 10 mg PO BID@0600,2200 [facility] Last Admin: 12/30/16 05:20 Dose: 10 mg Multi-Ingredient Ointment (Zinc Oxide) 1 applic TP BID [facility] Last Admin: 12/30/16 10:08 Dose: 1 applic Nifedipine (Procardia Xl -) 60 mg PO DAILY@0600 [facility] Last Admin: 12/30/16 05:20 Dose: 60 mg - Objective Vital Signs: Vital Signs Temperature 98.2 F 12/30/16 14:37 Pulse Rate 90 12/30/16 14:37 Respiratory Rate 16 12/30/16 14:37 Blood Pressure 150/78 12/30/16 14:37 O2 Sat by Pulse Oximetry (%) 98 12/28/16 09:00 Constitutional: Yes: Well Nourished, No Distress Eyes: Yes: Conjunctiva Clear, EOM Intact HENT: Yes: Atraumatic, Normocephalic Neck: Yes: Supple, Trachea Midline Cardiovascular: Yes: Regular Rate and Rhythm, S1, S2 Respiratory: Yes: Regular, CTA Bilaterally Gastrointestinal: Yes: Normal Bowel Sounds, Soft Musculoskeletal: Yes: Muscle Weakness (Lt leg hemiperisis) Labs: CBC, BMP 12/28/16 06:15 12/28/16 06:15 INR, PTT INR 1.03 (0.82-1.09) 12/24/16 15:10 Problem List - Problems (1) Fall Code(s): W19.XXXA - UNSPECIFIED FALL, INITIAL ENCOUNTER (2) Pelvis fracture Code(s): S32.9XXA - FRACTURE OF UNSP PARTS OF LUMBOSACRAL SPINE AND PELVIS, INIT Qualifiers: Encounter type: initial encounter Pelvic bone location: unspecified part of pelvis Fracture type: closed Fracture alignment: nondisplaced Qualified Code(s): S32.9XXA - Fracture of unspecified parts of lumbosacral spine and pelvis, initial encounter for closed fracture (3) Gait disorder Code(s): R26.9 - UNSPECIFIED ABNORMALITIES OF GAIT AND MOBILITY (4) Constipation by delayed colonic transit Code(s): K59.01 - SLOW TRANSIT CONSTIPATION (5) Sepsis Code(s): A41.9 - SEPSIS, UNSPECIFIED ORGANISM (6) Osteoporosis Code(s): M81.0 - AGE-RELATED OSTEOPOROSIS W/O CURRENT PATHOLOGICAL FRACTURE (7) Stroke Code(s): I63.9 - CEREBRAL INFARCTION, UNSPECIFIED
[2016-12-30] MEDS: DOCUSATE SODIUM 100 MG CAPSULE (FP) PO SCH (22:22)
[2016-12-30] MEDS: ATORVASTATIN CA 20 MG TABLET (FP) PO SCH (22:22)
[2016-12-31] MEDS: LISINOPRIL 10 MG TABLET (FP) PO SCH ×2 (05:44→22:45)
[2016-12-31] MEDS: ACETAMINOPHEN 325 MG TABLET (FP) PO PRN ×2 (05:44→12:40)
[2016-12-31] MEDS: NIFEdipine E.R 60 MG TABLET (UD) PO SCH (05:45)
[2016-12-31] MEDS: CEFTRIAXONE 50 ML IVPB SCH (10:53)
[2016-12-31] MEDS: ASPIRIN COATED 81 MG TABLET.EC PO SCH (10:54)
[2016-12-31] MEDS: ZINC OXIDE 20% TOPICAL OINTMENT 30 GM TUBE TP SCH ×2 (10:54→23:11)
[2016-12-31] MEDS: HEPARIN NA (PORCINE) 5,000 UNITS/ML 1ML VIAL SQ SCH ×2 (10:54→22:45)
--- NOTE | 2016-12-31 13:56 | PN ---
Progress Note, Physician History of Present Illness: doing well no issues - Current Medication List Current Medications: Active Medications Acetaminophen (Tylenol -) 650 mg PO Q6H PRN PRN Reason: FEVER OR PAIN Last Admin: 12/31/16 12:40 Dose: 650 mg Aspirin (Ecotrin -) 81 mg PO DAILY [facility] Last Admin: 12/31/16 10:54 Dose: 81 mg Atorvastatin Calcium (Lipitor -) 20 mg PO HS [facility] Last Admin: 12/30/16 22:22 Dose: 20 mg Bisacodyl (Dulcolax Suppository -) 10 mg RC PRN PRN PRN Reason: CONSTIPATION Last Admin: 12/27/16 22:03 Dose: 10 mg Docusate Sodium (Colace -) 300 mg PO HS [facility] Last Admin: 12/30/16 22:22 Dose: Not Given Heparin Sodium (Porcine) (Heparin -) 5,000 unit SQ BID [facility] Last Admin: 12/31/16 10:54 Dose: 5,000 unit Ceftriaxone Sodium (Rocephin 1gm Ivpb (Pre-Docked)) 50 mls @ 100 mls/hr IVPB DAILY [facility] Last Admin: 12/31/16 10:53 Dose: 100 mls/hr Lisinopril (Prinivil) 10 mg PO BID@0600,2200 [facility] Last Admin: 12/31/16 05:44 Dose: 10 mg Multi-Ingredient Ointment (Zinc Oxide) 1 applic TP BID [facility] Last Admin: 12/31/16 10:54 Dose: 1 applic Nifedipine (Procardia Xl -) 60 mg PO DAILY@0600 [facility] Last Admin: 12/31/16 05:45 Dose: 60 mg - Objective Vital Signs: Vital Signs Temperature 99.1 F 12/31/16 10:00 Pulse Rate 93 H 12/31/16 10:00 Respiratory Rate 20 12/31/16 10:00 Blood Pressure 156/65 12/31/16 10:00 O2 Sat by Pulse Oximetry (%) 98 12/28/16 09:00 Constitutional: Yes: No Distress, Calm Cardiovascular: Yes: Regular Rate and Rhythm Respiratory: Yes: Regular, CTA Bilaterally Gastrointestinal: Yes: Normal Bowel Sounds, Soft Musculoskeletal: Yes: Other Extremities: Yes: Other Neurological: Yes: Alert, Oriented Psychiatric: Yes: Alert, Oriented Labs: CBC, BMP 12/28/16 06:15 12/28/16 06:15 INR, PTT INR 1.03 (0.82-1.09) 12/24/16 15:10 Assessment/Plan hip fracture uti leukocytosis plan ecoli uti ivory sensitive continue abx one more day of abx
--- NOTE | 2016-12-31 20:56 | PN ---
Progress Note, Physician Chief Complaint: Fall/ Pelvic fracture History of Present Illness: 86 year old female, with a significant past medical history of hypertension and hyperlipidemia, who presents to the emergency department complaining of left leg and pelvic pain s/p mechanical fall last night. The patient reports she was walking down her hallway, when suddenly she fell. Patient reports she was unable to get up on her own, and asked for assistance from her children. She denies any head trauma or LOC. Patient reports left leg pain and pelvic pain radiating into back s/p fall. She reports difficulty ambulating. As per son, the patient went to bed hoping she would wake up better, but she continued to have leg pain and was brought to the ED. Son reports noting ecchymosis to the right ankle, but states patient is able to bare weight on her right leg and not her left leg. Patient reports taking advil with no relief. The patient denies any chest pain, shortness of breath, diaphoresis, or palpitations. The patient denies any fever, chills, headache, dizziness, or changes in vision. The patient is on 1 baby aspirin per day. - Current Medication List Current Medications: Active Medications Acetaminophen (Tylenol -) 650 mg PO Q6H PRN PRN Reason: FEVER OR PAIN Last Admin: 12/31/16 12:40 Dose: 650 mg Aspirin (Ecotrin -) 81 mg PO DAILY [facility] Last Admin: 12/31/16 10:54 Dose: 81 mg Atorvastatin Calcium (Lipitor -) 20 mg PO HS [facility] Last Admin: 12/30/16 22:22 Dose: 20 mg Bisacodyl (Dulcolax Suppository -) 10 mg RC PRN PRN PRN Reason: CONSTIPATION Last Admin: 12/27/16 22:03 Dose: 10 mg Docusate Sodium (Colace -) 300 mg PO HS [facility] Last Admin: 12/30/16 22:22 Dose: Not Given Heparin Sodium (Porcine) (Heparin -) 5,000 unit SQ BID [facility] Last Admin: 12/31/16 10:54 Dose: 5,000 unit Ceftriaxone Sodium (Rocephin 1gm Ivpb (Pre-Docked)) 50 mls @ 100 mls/hr IVPB DAILY [facility] Last Admin: 12/31/16 10:53 Dose: 100 mls/hr Lisinopril (Prinivil) 10 mg PO BID@0600,2200 [facility] Last Admin: 12/31/16 05:44 Dose: 10 mg Multi-Ingredient Ointment (Zinc Oxide) 1 applic TP BID [facility] Last Admin: 12/31/16 10:54 Dose: 1 applic Nifedipine (Procardia Xl -) 60 mg PO DAILY@0600 [facility] Last Admin: 12/31/16 05:45 Dose: 60 mg - Objective Vital Signs: Vital Signs Temperature 98.6 F 12/31/16 15:37 Pulse Rate 86 12/31/16 15:37 Respiratory Rate 16 12/31/16 15:37 Blood Pressure 164/67 12/31/16 15:37 O2 Sat by Pulse Oximetry (%) 98 12/31/16 09:00 Constitutional: Yes: No Distress Eyes: Yes: Conjunctiva Clear HENT: Yes: Atraumatic, Normocephalic Neck: Yes: Supple, Trachea Midline Cardiovascular: Yes: Regular Rate and Rhythm, S1, S2 Respiratory: Yes: Regular, CTA Bilaterally Gastrointestinal: Yes: Normal Bowel Sounds, Soft Musculoskeletal: Yes: Muscle Weakness (Left LL) Edema: No Labs: CBC, BMP 12/28/16 06:15 12/28/16 06:15 INR, PTT INR 1.03 (0.82-1.09) 12/24/16 15:10 Problem List - Problems (1) Fall Code(s): W19.XXXA - UNSPECIFIED FALL, INITIAL ENCOUNTER (2) Pelvis fracture Code(s): S32.9XXA - FRACTURE OF UNSP PARTS OF LUMBOSACRAL SPINE AND PELVIS, INIT Qualifiers: Encounter type: initial encounter Pelvic bone location: unspecified part of pelvis Fracture type: closed Fracture alignment: nondisplaced Qualified Code(s): S32.9XXA - Fracture of unspecified parts of lumbosacral spine and pelvis, initial encounter for closed fracture (3) Gait disorder Code(s): R26.9 - UNSPECIFIED ABNORMALITIES OF GAIT AND MOBILITY (4) Constipation by delayed colonic transit Code(s): K59.01 - SLOW TRANSIT CONSTIPATION (5) Sepsis Code(s): A41.9 - SEPSIS, UNSPECIFIED ORGANISM (6) Osteoporosis Code(s): M81.0 - AGE-RELATED OSTEOPOROSIS W/O CURRENT PATHOLOGICAL FRACTURE (7) Stroke Code(s): I63.9 - CEREBRAL INFARCTION, UNSPECIFIED Assessment/Plan (1) Fall Code(s): W19.XXXA - UNSPECIFIED FALL, INITIAL ENCOUNTER (2) Pelvis fracture: Ortho consult Code(s): S32.9XXA - FRACTURE OF UNSP PARTS OF LUMBOSACRAL SPINE AND PELVIS, INIT Qualifiers: Encounter type: initial encounter Pelvic bone location: unspecified part of pelvis Fracture type: closed Fracture alignment: nondisplaced Qualified Code(s): S32.9XXA - Fracture of unspecified parts of lumbosacral spine and pelvis, initial encounter for closed fracture (3) Sepsis/UTI: WBC 14 / UC :+ Code(s): A41.9 - SEPSIS, UNSPECIFIED ORGANISM (4) Gait disorder Code(s): R26.9 - UNSPECIFIED ABNORMALITIES OF GAIT AND MOBILITY (5) Osteoporosis Code(s): M81.0 - AGE-RELATED OSTEOPOROSIS W/O CURRENT PATHOLOGICAL FRACTURE (6) Constipation by delayed colonic transit Code(s): K59.01 - SLOW TRANSIT CONSTIPATION (7) Stroke: Rt [place] Code(s): I63.9 - CEREBRAL INFARCTION, UNSPECIFIED
[2016-12-31] MEDS ORDERED: PT OWN MED DRAWER 7, Y5N ONE (22:23)
[2016-12-31] MEDS: ATORVASTATIN CA 20 MG TABLET (FP) PO SCH (22:45)
[2016-12-31] MEDS: DOCUSATE SODIUM 100 MG CAPSULE (FP) PO SCH (22:45)
[2017-01-01] MEDS: LISINOPRIL 10 MG TABLET (FP) PO SCH ×2 (06:27→21:33)
[2017-01-01] MEDS: NIFEdipine E.R 60 MG TABLET (UD) PO SCH (06:28)
[2017-01-01] MEDS: CEFTRIAXONE 50 ML IVPB SCH (09:53)
[2017-01-01] MEDS: ZINC OXIDE 20% TOPICAL OINTMENT 30 GM TUBE TP SCH ×2 (10:00→21:35)
[2017-01-01] MEDS: HEPARIN NA (PORCINE) 5,000 UNITS/ML 1ML VIAL SQ SCH (10:00)
[2017-01-01] MEDS: ASPIRIN COATED 81 MG TABLET.EC PO SCH (10:00)
--- NOTE | 2017-01-01 13:57 | PN ---
Progress Note (short form) - Note Progress Note: Physical Medicine and Rehabilitation History: The patient still c/o pain in hip/leg which is worse when out of bed and weight bearing. She did get out of bed into a wheelchair yesterday with assist. She does note improvement in her speech and overall strength. She states that she has been accepted at [facility] but does not know discharge date. She has been moving her bowels and urinating without difficulty difficulty. No CP, SOB, N/V, difficulty swallowing or chewing. Exam: lying in bed NAD, awake and cooperative HEENT: No facial weakness, speech much improved with less hesitancy and increased vocabulary Ext: no edema Skin: no heel erythema or breakdown N/M: The patient appears to have good insight into her condition. Much stronger in L upper limb with at least 5-/5. R upper limb 5/5. L distal lower limb improved 4+/5 and R distal lower limb 5/5 but proximal bilateral hip girdle 1-2/5 due to pain and weakness. Normal sensation Impression 1. Deficits Mobility and ADLs multifactorial 2. 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 Bilateral Pelvic Fractures 5. Elevated Risk of DVT Suggest: 1. Continue Physical Therapy 2. OOB to Chair 3. WBAT LEs 4. Continue SQ Heparin 5. Speech Therapy 6. Acute Rehabilitation once medically stable and bed available David Watters MD
--- NOTE | 2017-01-01 15:09 | PN ---
Progress Note, Physician History of Present Illness: stable no issues - Current Medication List Current Medications: Active Medications Acetaminophen (Tylenol -) 650 mg PO Q6H PRN PRN Reason: FEVER OR PAIN Last Admin: 12/31/16 12:40 Dose: 650 mg Aspirin (Ecotrin -) 81 mg PO DAILY [facility] Last Admin: 01/01/17 10:00 Dose: 81 mg Atorvastatin Calcium (Lipitor -) 20 mg PO HS [facility] Last Admin: 12/31/16 22:45 Dose: 20 mg Bisacodyl (Dulcolax Suppository -) 10 mg RC PRN PRN PRN Reason: CONSTIPATION Last Admin: 12/27/16 22:03 Dose: 10 mg Docusate Sodium (Colace -) 300 mg PO HS [facility] Last Admin: 12/31/16 22:45 Dose: 300 mg Lisinopril (Prinivil) 10 mg PO BID@0600,2200 [facility] Last Admin: 01/01/17 06:27 Dose: 10 mg Multi-Ingredient Ointment (Zinc Oxide) 1 applic TP BID [facility] Last Admin: 01/01/17 10:00 Dose: 1 applic Nifedipine (Procardia Xl -) 60 mg PO DAILY@0600 [facility] Last Admin: 01/01/17 06:28 Dose: 60 mg - Objective Vital Signs: Vital Signs Temperature 98.4 F 01/01/17 14:37 Pulse Rate 91 H 01/01/17 14:37 Respiratory Rate 16 01/01/17 14:37 Blood Pressure 156/59 01/01/17 14:37 O2 Sat by Pulse Oximetry (%) 98 12/31/16 21:00 Constitutional: Yes: No Distress, Calm Cardiovascular: Yes: Regular Rate and Rhythm Respiratory: Yes: Regular, CTA Bilaterally Musculoskeletal: Yes: Other Extremities: Yes: Other Labs: CBC, BMP 12/28/16 06:15 12/28/16 06:15 INR, PTT INR 1.03 (0.82-1.09) 12/24/16 15:10 Assessment/Plan hip fracture uti leukocytosis plan ecoli uti ivory sensitive stopped all abx awaiting rehab placement
--- NOTE | 2017-01-01 19:08 | CONSULT ---
Consult Consult Specialty:: Endocrinology Referred by:: Dr Reynoso Reason for Consultation:: Hyeprglycemia - History of Present Illness Chief Complaint: Fall History of Present Illness: This is an 86 year old female, with history of hypertension, hyperlipidemia and DM on diet for around a year who presented to ED wit c/o of left leg and pelvic pain s/p mechanical fall . Pt found to have weakness of left side with slurring of speech. Noted to have pelvic fracture on CT scan and Rt acute/ subacute infarct on MRI of brain, Pt also found to have high blood sugar with A1c of 7.8. Pt referred for management of DM. BGM has been trending lower today after she stopped drinking cranberry juice . Last eye exam about 2years ago after her cataract surgery. Denies any paresthesia of feet. No polyuria or polydipsia. Has nocturia when she drinks more fluid than usual at home. - History Source History Provided By: Patient, Family Member, Medical Record Limitations to Obtaining History: Poor Historian - Past Medical History WRAPPER SORTER: Yes: Dementia Gastrointestinal: Yes: Constipation ...: No - Past Surgical History Past Surgical History: Yes: None - Alcohol/Substance Use Hx Alcohol Use: No - Smoking History Smoking history: Never smoked Have you smoked in the past 12 months: No Home Medications - Allergies Allergies/Adverse Reactions: Allergies Allergy/AdvReac Type Severity Reaction Status Date / Time No Known Allergies Allergy Verified 12/24/16 09:26 - Home Medications Home Medications: Ambulatory Orders Aspirin [ASA -] 81 mg PO DAILY 12/24/16 Lisinopril 10 mg PO BID 12/24/16 Nifedipine [Nifedipine ER] 60 mg PO DAILY 12/24/16 Family Disease History - Family Disease History Other Family History: Son and daugher diabetic Review of Systems - Review of Systems Constitutional: reports: No Symptoms Eyes: reports: No Symptoms HENT: reports: No Symptoms Neck: reports: No Symptoms Cardiovascular: reports: No Symptoms Respiratory: reports: No Symptoms Gastrointestinal: reports: No Symptoms Genitourinary: reports: No Symptoms Integumentary: reports: No Symptoms Neurological: reports: No Symptoms Endocrine: reports: No Symptoms Psychiatric: reports: No Symptoms Physical Exam Vital Signs: Vital Signs Temperature 98.4 F 01/01/17 14:37 Pulse Rate 91 H 01/01/17 14:37 Respiratory Rate 16 01/01/17 14:37 Blood Pressure 156/59 01/01/17 14:37 O2 Sat by Pulse Oximetry (%) 98 01/01/17 09:00 Constitutional: Yes: No Distress, Calm Eyes: Yes: Conjunctiva Clear, EOM Intact HENT: Yes: Atraumatic, Normocephalic Neck: Yes: Supple, Trachea Midline Cardiovascular: Yes: Regular Rate and Rhythm Respiratory: Yes: Regular, CTA Bilaterally Gastrointestinal: Yes: Normal Bowel Sounds, Soft Musculoskeletal: Yes: WNL Extremities: Yes: WNL Edema: No Neurological: Yes: Alert, Oriented Labs: CBC, BMP 12/28/16 06:15 12/28/16 06:15 Imaging - Results X-ray: Report Reviewed Cat Scan: Report Reviewed MRI: Report Reviewed Problem List - Problems (1) Pelvis fracture Code(s): S32.9XXA - FRACTURE OF UNSP PARTS OF LUMBOSACRAL SPINE AND PELVIS, INIT Qualifiers: Encounter type: initial encounter Pelvic bone location: unspecified part of pelvis Fracture type: closed Fracture alignment: nondisplaced Qualified Code(s): S32.9XXA - Fracture of unspecified parts of lumbosacral spine and pelvis, initial encounter for closed fracture (2) Stroke Code(s): I63.9 - CEREBRAL INFARCTION, UNSPECIFIED Assessment/Plan AP: DM: Diet discussed No Juice, sodas or other sugary drinks Treatment options discussed with patient and son at bedside Will start Metformin 500 mg QD. Calculated GFR 57 Monitor renal function. Will stop Metformin if GFR drops to less than 30 BGM BID AC Novolog SS coverage CVA Pelvic Fracture HTN
[2017-01-01] MEDS: ATORVASTATIN CA 20 MG TABLET (FP) PO SCH (21:33)
[2017-01-01] MEDS: DOCUSATE SODIUM 100 MG CAPSULE (FP) PO SCH (21:33)
[2017-01-02] MEDS: LISINOPRIL 10 MG TABLET (FP) PO SCH ×2 (06:03→21:34)
[2017-01-02] MEDS: NIFEdipine E.R 60 MG TABLET (UD) PO SCH (06:03)
[2017-01-02] MEDS: INSULIN SLIDING SCALE (NOVOLOG) 1 VIAL SQ SCH ×3 (06:51→17:06)
[2017-01-02] MEDS: metFORMIN HCL 500 MG TABLET (FP) PO SCH (06:51)
[2017-01-02] MEDS: ASPIRIN COATED 81 MG TABLET.EC PO SCH (09:36)
[2017-01-02] MEDS: ACETAMINOPHEN 325 MG TABLET (FP) PO PRN (09:46)
--- NOTE | 2017-01-02 09:57 | PN ---
Progress Note, Physician Chief Complaint: Fall/ Pelvic fracture History of Present Illness: 86 year old female, with a significant past medical history of hypertension and hyperlipidemia, who presents to the emergency department complaining of left leg and pelvic pain s/p mechanical fall last night. The patient reports she was walking down her hallway, when suddenly she fell. Patient reports she was unable to get up on her own, and asked for assistance from her children. She denies any head trauma or LOC. Patient reports left leg pain and pelvic pain radiating into back s/p fall. She reports difficulty ambulating. As per son, the patient went to bed hoping she would wake up better, but she continued to have leg pain and was brought to the ED. Son reports noting ecchymosis to the right ankle, but states patient is able to bare weight on her right leg and not her left leg. Patient reports taking advil with no relief. The patient denies any chest pain, shortness of breath, diaphoresis, or palpitations. The patient denies any fever, chills, headache, dizziness, or changes in vision. The patient is on 1 baby aspirin per day. - Current Medication List Current Medications: Active Medications Acetaminophen (Tylenol -) 650 mg PO Q6H PRN PRN Reason: FEVER OR PAIN Last Admin: 01/02/17 09:46 Dose: 650 mg Aspirin (Ecotrin -) 81 mg PO DAILY [facility] Last Admin: 01/02/17 09:36 Dose: 81 mg Atorvastatin Calcium (Lipitor -) 20 mg PO HS [facility] Last Admin: 01/01/17 21:33 Dose: 20 mg Bisacodyl (Dulcolax Suppository -) 10 mg RC PRN PRN PRN Reason: CONSTIPATION Last Admin: 12/27/16 22:03 Dose: 10 mg Docusate Sodium (Colace -) 300 mg PO HS [facility] Last Admin: 01/01/17 21:33 Dose: 300 mg Insulin Aspart (Novolog Vial Sliding Scale -) 1 vial SQ TIDAC [facility] PRN Reason: Protocol Last Admin: 01/02/17 06:51 Dose: Not Given Lisinopril (Prinivil) 10 mg PO BID@0600,2200 [facility] Last Admin: 01/02/17 06:03 Dose: 10 mg Metformin HCl (Glucophage -) 500 mg PO DAILY@0700 [facility] Last Admin: 01/02/17 06:51 Dose: 500 mg Multi-Ingredient Ointment (Zinc Oxide) 1 applic TP BID [facility] Last Admin: 01/01/17 21:35 Dose: 1 applic Nifedipine (Procardia Xl -) 60 mg PO DAILY@0600 [facility] Last Admin: 01/02/17 06:03 Dose: 60 mg - Objective Vital Signs: Vital Signs Temperature 99 F 01/02/17 08:30 Pulse Rate 91 H 01/02/17 08:30 Respiratory Rate 22 01/02/17 08:30 Blood Pressure 177/73 01/02/17 08:30 O2 Sat by Pulse Oximetry (%) 98 01/01/17 21:00 Constitutional: Yes: Well Nourished, No Distress Eyes: Yes: Conjunctiva Clear, EOM Intact HENT: Yes: Atraumatic, Normocephalic Neck: Yes: Supple, Trachea Midline Cardiovascular: Yes: Regular Rate and Rhythm, S1, S2 Respiratory: Yes: Regular, CTA Bilaterally Gastrointestinal: Yes: Normal Bowel Sounds, Soft Musculoskeletal: Yes: Muscle Weakness Edema: No Peripheral Pulses WNL: Yes Neurological: Yes: Alert, Oriented, Cran Nerves II-XII Intact, Weakness (Lt sided hemiperisis) Labs: CBC, BMP 12/28/16 06:15 12/28/16 06:15 INR, PTT INR 1.03 (0.82-1.09) 12/24/16 15:10 Problem List - Problems (1) Fall Code(s): W19.XXXA - UNSPECIFIED FALL, INITIAL ENCOUNTER (2) Pelvis fracture Code(s): S32.9XXA - FRACTURE OF UNSP PARTS OF LUMBOSACRAL SPINE AND PELVIS, INIT Qualifiers: Encounter type: initial encounter Pelvic bone location: unspecified part of pelvis Fracture type: closed Fracture alignment: nondisplaced Qualified Code(s): S32.9XXA - Fracture of unspecified parts of lumbosacral spine and pelvis, initial encounter for closed fracture (3) Gait disorder Code(s): R26.9 - UNSPECIFIED ABNORMALITIES OF GAIT AND MOBILITY (4) Constipation by delayed colonic transit Code(s): K59.01 - SLOW TRANSIT CONSTIPATION (5) Sepsis Code(s): A41.9 - SEPSIS, UNSPECIFIED ORGANISM (6) Osteoporosis Code(s): M81.0 - AGE-RELATED OSTEOPOROSIS W/O CURRENT PATHOLOGICAL FRACTURE (7) Stroke Code(s): I63.9 - CEREBRAL INFARCTION, UNSPECIFIED Assessment/Plan (1) Fall Code(s): W19.XXXA - UNSPECIFIED FALL, INITIAL ENCOUNTER (2) Pelvis fracture: Ortho consult Code(s): S32.9XXA - FRACTURE OF UNSP PARTS OF LUMBOSACRAL SPINE AND PELVIS, INIT Qualifiers: Encounter type: initial encounter Pelvic bone location: unspecified part of pelvis Fracture type: closed Fracture alignment: nondisplaced Qualified Code(s): S32.9XXA - Fracture of unspecified parts of lumbosacral spine and pelvis, initial encounter for closed fracture (3) Sepsis: WBC 14 / UC pending Code(s): A41.9 - SEPSIS, UNSPECIFIED ORGANISM (4) Gait disorder Code(s): R26.9 - UNSPECIFIED ABNORMALITIES OF GAIT AND MOBILITY (5) Osteoporosis Code(s): M81.0 - AGE-RELATED OSTEOPOROSIS W/O CURRENT PATHOLOGICAL FRACTURE (6) Constipation by delayed colonic transit Code(s): K59.01 - SLOW TRANSIT CONSTIPATION
--- NOTE | 2017-01-02 10:11 | DS ---
Physical Examination Vital Signs: Vital Signs Temperature 99 F 01/02/17 08:30 Pulse Rate 91 H 01/02/17 08:30 Respiratory Rate 22 01/02/17 08:30 Blood Pressure 177/73 01/02/17 08:30 O2 Sat by Pulse Oximetry (%) 98 01/01/17 21:00 Constitutional: Yes: No Distress Eyes: Yes: Conjunctiva Clear, EOM Intact HENT: Yes: Atraumatic, Normocephalic Neck: Yes: Supple, Trachea Midline Cardiovascular: Yes: Regular Rate and Rhythm, S1, S2 Respiratory: Yes: Regular, CTA Bilaterally Gastrointestinal: Yes: Normal Bowel Sounds, Soft Musculoskeletal: Yes: Muscle Weakness Edema: No Peripheral Pulses WNL: Yes Neurological: Yes: Alert, Oriented, Cran Nerves II-XII Intact (Lt sided hemiperisis) ...Motor Strength: LUE, LLE Labs: CBC, BMP 12/28/16 06:15 12/28/16 06:15 Discharge Summary Reason For Visit: PELVIS FRACTURE/CVA with Lt sided Hemiperis Current Active Problems Abnormal movement (Acute) Constipation by delayed colonic transit (Acute) Fall (Acute) Gait disorder (Acute) Osteoporosis (Acute) Pelvis fracture (Acute) Sepsis (Acute) Stroke (Acute) DM Hospital Course: 86 year old female, with a significant past medical history of hypertension and hyperlipidemia, who presents to the emergency department complaining of left leg and pelvic pain s/p mechanical fall last night. The patient reports she was walking down her hallway, when suddenly she fell. Patient reports she was unable to get up on her own, and asked for assistance from her children. She denies any head trauma or LOC. Patient reports left leg pain and pelvic pain radiating into back s/p fall. She reports difficulty ambulating. As per son, the patient went to bed hoping she would wake up better, but she continued to have leg pain and was brought to the ED. Son reports noting ecchymosis to the right ankle, but states patient is able to bare weight on her right leg and not her left leg. Patient reports taking advil with no relief. The patient denies any chest pain, shortness of breath, diaphoresis, or palpitations. The patient denies any fever, chills, headache, dizziness, or changes in vision. The patient is on 1 baby aspirin per day. Pt had MRI of Brain Suggestive of [place] with Ltsided hemiperisis with Dysarthria Pt was also Rx for UTI/ on marquez to prevent sacral decubiti Pt seen By Mary for new onset DM started on Metformin / Monitoring Creat Pt seen PT also and [facility] Condition: Stable - Instructions Referrals: Fly Lindo MD [Primary Care Provider] - Noni Reynoso MD [Staff Physician] - Disposition: [facility]ILITY - Home Medications Comprehensive Discharge Medication List: Ambulatory Orders Aspirin [ASA -] 81 mg PO DAILY 12/24/16 Lisinopril 10 mg PO BID 12/24/16 Nifedipine [Nifedipine ER] 60 mg PO DAILY 12/24/16 Metformin 500 PO Daily Colace 200 Po daily Tylenol 650 PO Q8h PRN for Pain
--- NOTE | 2017-01-02 12:19 | PN ---
Progress Note (short form) - Note Progress Note: Denies any complaints Blood sugar fluctuating No hypos Tolerated Metformin today Vital Signs Period Temp Pulse Resp BP Sys/Horne Pulse Ox Last 24 Hr 98 F-99.0 F 78-92 16-22 142-192/58-91 95-98 PE: Awake alert Neck: Supple, No JVD HEENT: PERRL, EOMI Lungs: CTA Abd: Benign Ext: No edema Neuro: Grossly intact CMP Sodium 137 mmol/L (136-145) 12/28/16 06:15 Potassium 4.0 mmol/L (3.5-5.1) 12/28/16 06:15 Chloride 99 mmol/L (98-107) 12/28/16 06:15 Carbon Dioxide 25 mmol/L (21-32) 12/28/16 06:15 Anion Gap 13 (8-16) 12/28/16 06:15 BUN 29 mg/dL (7-18) H D 12/28/16 06:15 Creatinine 0.9 mg/dL (0.55-1.02) 12/28/16 06:15 Creat Clearance w eGFR 59.09 (>60) 12/24/16 15:10 POC Glucometer 250 UNITS (()) 01/02/17 11:16 Random Glucose 209 mg/dL (74-106) H D 12/28/16 06:15 Hemoglobin A1c % 7.8 % (4.8-6.0) H D 12/28/16 06:15 Calcium 8.7 mg/dL (8.5-10.1) 12/28/16 06:15 Total Bilirubin 0.9 mg/dL (0.2-1.0) 12/24/16 15:10 AST 20 U/L (15-37) D 12/24/16 15:10 ALT 26 U/L (12-78) 12/24/16 15:10 Alkaline Phosphatase 117 U/L (45-117) 12/24/16 15:10 Troponin I < 0.02 ng/ml (0.00-0.05) 12/25/16 06:30 B-Natriuretic Peptide 1194.69 pg/ml (5-450) H 12/25/16 06:30 Total Protein 7.3 g/dl (6.4-8.2) 12/24/16 15:10 Albumin 3.4 g/dl (3.4-5.0) 12/24/16 15:10 Current Medications Generic Name Dose Route Start Last Admin Trade Name Freq PRN Reason Stop Dose Admin Acetaminophen 650 mg 12/26/16 10:48 01/02/17 09:46 Tylenol - PO 650 mg Q6H PRN Administration FEVER OR PAIN Aspirin 81 mg 12/28/16 10:00 01/02/17 09:36 Ecotrin - PO 81 mg DAILY KATIE Administration Atorvastatin Calcium 20 mg 12/26/16 22:00 01/01/17 21:33 Lipitor - PO 20 mg HS KATIE Administration Bisacodyl 10 mg 12/27/16 20:34 12/27/16 22:03 Dulcolax Suppository - RC 10 mg PRN PRN Administration CONSTIPATION Docusate Sodium 300 mg 12/26/16 22:00 01/01/17 21:33 Colace - PO 300 mg HS KATIE Administration Insulin Aspart 1 vial 01/02/17 07:00 01/02/17 11:24 Novolog Vial Sliding Scale - SQ 2 unit TIDAC KATIE Administration Protocol Lisinopril 10 mg 12/26/16 22:00 01/02/17 06:03 Prinivil PO 10 mg BID@0600,2200 KATIE Administration Metformin HCl 500 mg 01/02/17 07:00 01/02/17 06:51 Glucophage - PO 500 mg DAILY@0700 KATIE Administration Multi-Ingredient Ointment 1 applic 12/27/16 22:00 01/01/17 21:35 Zinc Oxide TP 1 applic BID KATIE Administration Nifedipine 60 mg 12/27/16 06:00 01/02/17 06:03 Procardia Xl - PO 60 mg DAILY@0600 KATIE Administration AP: DM: Treatment options discussed with patient and daughter at bedside Risk and benefits of Metformin and Januvia discussed Family agrees with Meformin. Discussed need to monitor renal function. Will stop Metformin if GFR drops to less than 30 Continue Metformin 500 mg QD. Calculated GFR 57 BGM BID AC Novolog SS coverage CVA Pelvic Fracture HTN Problem List - Problems (1) Pelvis fracture Code(s): S32.9XXA - FRACTURE OF UNSP PARTS OF LUMBOSACRAL SPINE AND PELVIS, INIT Qualifiers: Encounter type: initial encounter Pelvic bone location: unspecified part of pelvis Fracture type: closed Fracture alignment: nondisplaced Qualified Code(s): S32.9XXA - Fracture of unspecified parts of lumbosacral spine and pelvis, initial encounter for closed fracture (2) Stroke Code(s): I63.9 - CEREBRAL INFARCTION, UNSPECIFIED
--- NOTE | 2017-01-02 13:05 | PN ---
Progress Note, LEAD SOLUTIONS ARCHITECT - Note Progress Note: Feeding self lunch. Speech production much improved, as compared to admission status. Insight is impaired and pt is forgetful. Speech is now audible, at times too rapid resulting in more imprecise articulation, adversely affecting intelligibility. Selected Entries 12/31/16 12/31/16 12/31/16 06:31 10:00 11:53 Breakfast 75% Lunch Skin Risk Level Supper Total Score - Skin Risk Assessment Temperature 98.7 F 99.1 F 12/31/16 12/31/16 12/31/16 15:37 17:30 21:20 Breakfast Lunch 75% Skin Risk Level Supper 75% Total Score - Skin Risk Assessment Temperature 98.6 F 99.1 F 12/31/16 01/01/17 01/01/17 22:00 08:09 09:00 Breakfast Lunch Skin Risk Level Supper Total Score - Skin Risk Assessment Temperature 98.9 F 99.2 F 98.7 F 01/01/17 01/01/17 01/01/17 11:47 14:37 18:00 Breakfast 100% Lunch 75% Skin Risk Level Supper Total Score - Skin Risk Assessment Temperature 98.4 F 99.0 F 01/01/17 01/02/17 01/02/17 22:00 06:00 08:30 Breakfast Lunch Skin Risk Level High Risk Supper Total Score - 12 Skin Risk Assessment Temperature 98 F 98.9 F 99 F 01/02/17 01/02/17 10:50 10:56 Breakfast 100% Lunch Skin Risk Level High Risk Supper Total Score - 12 Skin Risk Assessment Temperature Medically accepted at [place], pending transfer.
[2017-01-02] MEDS: ZINC OXIDE 20% TOPICAL OINTMENT 30 GM TUBE TP SCH ×2 (13:45→21:36)
--- NOTE | 2017-01-02 17:10 | PN ---
Progress Note, Physician History of Present Illness: stable no new issues endo note noted no complaints - Current Medication List Current Medications: Active Medications Acetaminophen (Tylenol -) 650 mg PO Q6H PRN PRN Reason: FEVER OR PAIN Last Admin: 01/02/17 09:46 Dose: 650 mg Aspirin (Ecotrin -) 81 mg PO DAILY [facility] Last Admin: 01/02/17 09:36 Dose: 81 mg Atorvastatin Calcium (Lipitor -) 20 mg PO HS [facility] Last Admin: 01/01/17 21:33 Dose: 20 mg Bisacodyl (Dulcolax Suppository -) 10 mg RC PRN PRN PRN Reason: CONSTIPATION Last Admin: 12/27/16 22:03 Dose: 10 mg Docusate Sodium (Colace -) 300 mg PO [facility] Last Admin: 01/01/17 21:33 Dose: 300 mg Insulin Aspart (Novolog Vial Sliding Scale -) 1 vial SQ TIDAC [facility] PRN Reason: Protocol Last Admin: 01/02/17 17:06 Dose: Not Given Lisinopril (Prinivil) 10 mg PO BID@0600,2200 [facility] Last Admin: 01/02/17 06:03 Dose: 10 mg Metformin HCl (Glucophage -) 500 mg PO DAILY@0700 [facility] Last Admin: 01/02/17 06:51 Dose: 500 mg Multi-Ingredient Ointment (Zinc Oxide) 1 applic TP BID [facility] Last Admin: 01/02/17 13:45 Dose: Not Given Nifedipine (Procardia Xl -) 60 mg PO DAILY@0600 [facility] Last Admin: 01/02/17 06:03 Dose: 60 mg - Objective Vital Signs: Vital Signs Temperature 98.6 F 01/02/17 14:58 Pulse Rate 87 01/02/17 14:58 Respiratory Rate 20 01/02/17 14:58 Blood Pressure 143/70 01/02/17 14:58 O2 Sat by Pulse Oximetry (%) 95 01/02/17 09:00 Constitutional: Yes: No Distress, Calm Cardiovascular: Yes: Regular Rate and Rhythm Respiratory: Yes: Regular Gastrointestinal: Yes: Normal Bowel Sounds, Soft Musculoskeletal: Yes: Other Extremities: Yes: Other Neurological: Yes: Alert, Oriented Psychiatric: Yes: Alert Labs: CBC, BMP 12/28/16 06:15 12/28/16 06:15 INR, PTT INR 1.03 (0.82-1.09) 12/24/16 15:10 Assessment/Plan hip fracture uti leukocytosis plan stable off of abx no new issues await for placement
[2017-01-02] MEDS: DOCUSATE SODIUM 100 MG CAPSULE (FP) PO SCH (21:34)
[2017-01-02] MEDS: ATORVASTATIN CA 20 MG TABLET (FP) PO SCH (21:36)
[2017-01-03] MEDS: NIFEdipine E.R 60 MG TABLET (UD) PO SCH (05:51)
[2017-01-03] MEDS: LISINOPRIL 10 MG TABLET (FP) PO SCH ×2 (05:52→23:40)
[2017-01-03] MEDS: INSULIN SLIDING SCALE (NOVOLOG) 1 VIAL SQ SCH ×3 (06:49→16:58)
[2017-01-03] MEDS: metFORMIN HCL 500 MG TABLET (FP) PO SCH ×2 (08:17→11:45)
--- NOTE | 2017-01-03 08:36 | PN ---
Progress Note, Physician History of Present Illness: stable feels better than yesterday no complaints stable off of abx - Current Medication List Current Medications: Active Medications Acetaminophen (Tylenol -) 650 mg PO Q6H PRN PRN Reason: FEVER OR PAIN Last Admin: 01/02/17 09:46 Dose: 650 mg Aspirin (Ecotrin -) 81 mg PO DAILY [facility] Last Admin: 01/02/17 09:36 Dose: 81 mg Atorvastatin Calcium (Lipitor -) 20 mg PO [facility] Last Admin: 01/02/17 21:36 Dose: Not Given Bisacodyl (Dulcolax Suppository -) 10 mg RC PRN PRN PRN Reason: CONSTIPATION Last Admin: 12/27/16 22:03 Dose: 10 mg Docusate Sodium (Colace -) 300 mg PO [facility] Last Admin: 01/02/17 21:34 Dose: 300 mg Insulin Aspart (Novolog Vial Sliding Scale -) 1 vial SQ TIDAC [facility] PRN Reason: Protocol Last Admin: 01/03/17 06:49 Dose: Not Given Lisinopril (Prinivil) 10 mg PO BID@0600,2200 [facility] Last Admin: 01/03/17 05:52 Dose: 10 mg Metformin HCl (Glucophage -) 500 mg PO DAILY@0700 [facility] Last Admin: 01/03/17 08:17 Dose: 500 mg Multi-Ingredient Ointment (Zinc Oxide) 1 applic TP BID [facility] Last Admin: 01/02/17 21:36 Dose: 1 applic Nifedipine (Procardia Xl -) 60 mg PO DAILY@0600 [facility] Last Admin: 01/03/17 05:51 Dose: 60 mg - Objective Vital Signs: Vital Signs Temperature 99.2 F 01/03/17 06:29 Pulse Rate 90 01/03/17 06:29 Respiratory Rate 20 01/03/17 06:29 Blood Pressure 152/92 01/03/17 06:29 O2 Sat by Pulse Oximetry (%) 95 01/02/17 21:00 Constitutional: Yes: No Distress, Calm Cardiovascular: Yes: S1, S2 Respiratory: Yes: Regular, CTA Bilaterally Gastrointestinal: Yes: Normal Bowel Sounds, Soft Extremities: Yes: Other Neurological: Yes: Alert, Oriented Psychiatric: Yes: Alert Labs: CBC, BMP 12/28/16 06:15 12/28/16 06:15 INR, PTT INR 1.03 (0.82-1.09) 12/24/16 15:10 Assessment/Plan hip fracture uti leukocytosis plan stable off of abx no new issues await for placement rest ct current mgmt
[2017-01-03] MEDS: HEPARIN NA (PORCINE) 5,000 UNITS/ML 1ML VIAL SQ SCH ×2 (10:30→23:40)
[2017-01-03] MEDS: ASPIRIN COATED 81 MG TABLET.EC PO SCH (10:30)
[2017-01-03] MEDS ORDERED: INSULIN (NOVOLOG) ASPART 100 UNITS/ML 10ML VIAL ONE ×2 (12:03→16:53)
--- NOTE | 2017-01-03 13:00 | PN ---
Progress Note, BLADDER TRIMMER - Note Progress Note: Pt pending transfer to [facility]. Pt is an excellent rehab candidate. As pt improves, language deficits become more apparent with significant hesitance in initiation and organization in propositional speech tasks. She is fully oriented and seems to have functional LT and ST memory. She yesitates in initiating speech, only producing a phrase or simple sentence at a time. She benefits from cues to focus on first sentence , to segregate to task. Pt's family continue to be educated on ways to facilitate verbal expression including oral reading, retelling a story, sequencing events or recipes etc. Pt demonstrates excellent potential for recovery. I do not believe she is confused although she may appear so due to Aphasia/Apraxia.
[2017-01-03] MEDS: ZINC OXIDE 20% TOPICAL OINTMENT 30 GM TUBE TP SCH (13:09)
--- NOTE | 2017-01-03 20:18 | PN ---
Progress Note, Physician Chief Complaint: Fall/ Pelvic fracture History of Present Illness: 86 year old female, with a significant past medical history of hypertension and hyperlipidemia, who presents to the emergency department complaining of left leg and pelvic pain s/p mechanical fall last night. The patient reports she was walking down her hallway, when suddenly she fell. Patient reports she was unable to get up on her own, and asked for assistance from her children. She denies any head trauma or LOC. Patient reports left leg pain and pelvic pain radiating into back s/p fall. She reports difficulty ambulating. As per son, the patient went to bed hoping she would wake up better, but she continued to have leg pain and was brought to the ED. Son reports noting ecchymosis to the right ankle, but states patient is able to bare weight on her right leg and not her left leg. Patient reports taking advil with no relief. The patient denies any chest pain, shortness of breath, diaphoresis, or palpitations. The patient denies any fever, chills, headache, dizziness, or changes in vision. The patient is on 1 baby aspirin per day. - Current Medication List Current Medications: Active Medications Acetaminophen (Tylenol -) 650 mg PO Q6H PRN PRN Reason: FEVER OR PAIN Last Admin: 01/02/17 09:46 Dose: 650 mg Aspirin (Ecotrin -) 81 mg PO DAILY [facility] Last Admin: 01/03/17 10:30 Dose: 81 mg Bisacodyl (Dulcolax Suppository -) 10 mg RC PRN PRN PRN Reason: CONSTIPATION Last Admin: 12/27/16 22:03 Dose: 10 mg Docusate Sodium (Colace -) 300 mg PO HS [facility] Last Admin: 01/02/17 21:34 Dose: 300 mg Heparin Sodium (Porcine) (Heparin -) 5,000 unit SQ BID [facility] Last Admin: 01/03/17 10:30 Dose: 5,000 unit Insulin Aspart (Novolog Vial Sliding Scale -) 1 vial SQ TIDAC [facility] PRN Reason: Protocol Last Admin: 01/03/17 16:58 Dose: Not Given Lisinopril (Prinivil) 10 mg PO BID@0600,2200 [facility] Last Admin: 01/03/17 05:52 Dose: 10 mg Metformin HCl (Glucophage -) 500 mg PO DAILY@0800 [facility] Last Admin: 01/03/17 11:45 Dose: Not Given Multi-Ingredient Ointment (Zinc Oxide) 1 applic TP BID [facility] Last Admin: 01/03/17 13:09 Dose: Not Given Nifedipine (Procardia Xl -) 60 mg PO DAILY@0600 [facility] Last Admin: 01/03/17 05:51 Dose: 60 mg - Objective Vital Signs: Vital Signs Temperature 99.1 F 01/03/17 16:59 Pulse Rate 91 H 01/03/17 16:59 Respiratory Rate 20 01/03/17 16:59 Blood Pressure 178/74 01/03/17 16:59 O2 Sat by Pulse Oximetry (%) 93 L 01/03/17 09:00 Constitutional: Yes: No Distress Eyes: Yes: Conjunctiva Clear, EOM Intact HENT: Yes: Atraumatic, Normocephalic Neck: Yes: Supple, Trachea Midline Cardiovascular: Yes: Regular Rate and Rhythm, S1, S2 Respiratory: Yes: Regular, CTA Bilaterally Gastrointestinal: Yes: Normal Bowel Sounds, Soft Musculoskeletal: Yes: Muscle Weakness (Lt sided weakness) Edema: No Peripheral Pulses WNL: Yes Labs: CBC, BMP 12/28/16 06:15 12/28/16 06:15 INR, PTT INR 1.03 (0.82-1.09) 12/24/16 15:10 Problem List - Problems (1) Fall Code(s): W19.XXXA - UNSPECIFIED FALL, INITIAL ENCOUNTER (2) Pelvis fracture Code(s): S32.9XXA - FRACTURE OF UNSP PARTS OF LUMBOSACRAL SPINE AND PELVIS, INIT Qualifiers: Encounter type: initial encounter Pelvic bone location: unspecified part of pelvis Fracture type: closed Fracture alignment: nondisplaced Qualified Code(s): S32.9XXA - Fracture of unspecified parts of lumbosacral spine and pelvis, initial encounter for closed fracture (3) Gait disorder Code(s): R26.9 - UNSPECIFIED ABNORMALITIES OF GAIT AND MOBILITY (4) Constipation by delayed colonic transit Code(s): K59.01 - SLOW TRANSIT CONSTIPATION (5) Sepsis Code(s): A41.9 - SEPSIS, UNSPECIFIED ORGANISM (6) Osteoporosis Code(s): M81.0 - AGE-RELATED OSTEOPOROSIS W/O CURRENT PATHOLOGICAL FRACTURE (7) Stroke Code(s): I63.9 - CEREBRAL INFARCTION, UNSPECIFIED Assessment/Plan (1) Fall Code(s): W19.XXXA - UNSPECIFIED FALL, INITIAL ENCOUNTER (2) Pelvis fracture: Ortho consult Code(s): S32.9XXA - FRACTURE OF UNSP PARTS OF LUMBOSACRAL SPINE AND PELVIS, INIT Qualifiers: Encounter type: initial encounter Pelvic bone location: unspecified part of pelvis Fracture type: closed Fracture alignment: nondisplaced Qualified Code(s): S32.9XXA - Fracture of unspecified parts of lumbosacral spine and pelvis, initial encounter for closed fracture (3) Sepsis: WBC 14 / UC pending Code(s): A41.9 - SEPSIS, UNSPECIFIED ORGANISM (4) Gait disorder Code(s): R26.9 - UNSPECIFIED ABNORMALITIES OF GAIT AND MOBILITY (5) Osteoporosis Code(s): M81.0 - AGE-RELATED OSTEOPOROSIS W/O CURRENT PATHOLOGICAL FRACTURE (6) Constipation by delayed colonic transit Code(s): K59.01 - SLOW TRANSIT CONSTIPATION
[2017-01-03] MEDS: DOCUSATE SODIUM 100 MG CAPSULE (FP) PO SCH (23:40)
[2017-01-04] MEDS: ZINC OXIDE 20% TOPICAL OINTMENT 30 GM TUBE TP SCH ×3 (00:15→21:51)
[2017-01-04] MEDS: LISINOPRIL 10 MG TABLET (FP) PO SCH ×2 (06:48→21:51)
[2017-01-04] MEDS: INSULIN SLIDING SCALE (NOVOLOG) 1 VIAL SQ SCH ×3 (06:50→17:20)
[2017-01-04] MEDS: NIFEdipine E.R 60 MG TABLET (UD) PO SCH (06:50)
[2017-01-04 07:49] LABS: MCH 30.3 pg (25.7-33.7); MCHC 32.9 g/dl (32.0-36.0); MEAN CELL VOLUME 92.1 fl (80-96); MEAN PLT VOLUME 8.7 fl (7.5-11.1); PLATELET COUNT 393 K/MM3 (134-434); RDW 14.2 % (11.6-15.6); WHITE BLOOD COUNT 19.2 K/mm3 (4.0-10.0)
[2017-01-04 08:09] LABS: BASOPHIL 0.8 % (0-2.0); NEUTROPHILS 81.1 % (42.8-82.8)
[2017-01-04 08:28] LABS: COCKROFT - GAULT 47.855; CREATININE 0.7 mg/dL (0.55-1.02)
[2017-01-04] MEDS: metFORMIN HCL 500 MG TABLET (FP) PO SCH (08:42)
--- NOTE | 2017-01-04 08:49 | PN ---
Progress Note (short form) - Note Progress Note: Denies any complaints Blood sugar fluctuating No hypos Tolerated Metformin WBC 19 today No fever or chills No dysuria, Vital Signs Period Temp Pulse Resp BP Sys/Horne Pulse Ox Last 24 Hr 97.9 F-99.1 F 85-93 16-20 147-184/68-84 93-93 PE: Awake alert Neck: Supple, No JVD HEENT: PERRL, EOMI Lungs: CTA Abd: Benign Ext: No edema Neuro: Grossly intact CMP Sodium 137 mmol/L (136-145) 12/28/16 06:15 Potassium 4.0 mmol/L (3.5-5.1) 12/28/16 06:15 Chloride 99 mmol/L (98-107) 12/28/16 06:15 Carbon Dioxide 25 mmol/L (21-32) 12/28/16 06:15 Anion Gap 13 (8-16) 12/28/16 06:15 BUN 29 mg/dL (7-18) H D 12/28/16 06:15 Creatinine 0.9 mg/dL (0.55-1.02) 12/28/16 06:15 Creat Clearance w eGFR 59.09 (>60) 12/24/16 15:10 POC Glucometer 250 UNITS (()) 01/02/17 11:16 Random Glucose 209 mg/dL (74-106) H D 12/28/16 06:15 Hemoglobin A1c % 7.8 % (4.8-6.0) H D 12/28/16 06:15 Calcium 8.7 mg/dL (8.5-10.1) 12/28/16 06:15 Total Bilirubin 0.9 mg/dL (0.2-1.0) 12/24/16 15:10 AST 20 U/L (15-37) D 12/24/16 15:10 ALT 26 U/L (12-78) 12/24/16 15:10 Alkaline Phosphatase 117 U/L (45-117) 12/24/16 15:10 Troponin I < 0.02 ng/ml (0.00-0.05) 12/25/16 06:30 B-Natriuretic Peptide 1194.69 pg/ml (5-450) H 12/25/16 06:30 Total Protein 7.3 g/dl (6.4-8.2) 12/24/16 15:10 Albumin 3.4 g/dl (3.4-5.0) 12/24/16 15:10 Current Medications Generic Name Dose Route Start Last Admin Trade Name Freq PRN Reason Stop Dose Admin Acetaminophen 650 mg 12/26/16 10:48 01/02/17 09:46 Tylenol - PO 650 mg Q6H PRN Administration FEVER OR PAIN Aspirin 81 mg 12/28/16 10:00 01/02/17 09:36 Ecotrin - PO 81 mg DAILY KATIE Administration Atorvastatin Calcium 20 mg 12/26/16 22:00 01/01/17 21:33 Lipitor - PO 20 mg HS KATIE Administration Bisacodyl 10 mg 12/27/16 20:34 12/27/16 22:03 Dulcolax Suppository - RC 10 mg PRN PRN Administration CONSTIPATION Docusate Sodium 300 mg 12/26/16 22:00 01/01/17 21:33 Colace - PO 300 mg HS KATIE Administration Insulin Aspart 1 vial 01/02/17 07:00 01/02/17 11:24 Novolog Vial Sliding Scale - SQ 2 unit TIDAC KATIE Administration Protocol Lisinopril 10 mg 12/26/16 22:00 01/02/17 06:03 Prinivil PO 10 mg BID@0600,2200 KATIE Administration Metformin HCl 500 mg 01/02/17 07:00 01/02/17 06:51 Glucophage - PO 500 mg DAILY@0700 KATIE Administration Multi-Ingredient Ointment 1 applic 12/27/16 22:00 01/01/17 21:35 Zinc Oxide TP 1 applic BID KATIE Administration Nifedipine 60 mg 12/27/16 06:00 01/02/17 06:03 Procardia Xl - PO 60 mg DAILY@0600 KATIE Administration CBCD WBC 19.2 K/mm3 (4.0-10.0) H D 01/04/17 06:30 RBC 4.16 M/mm3 (3.60-5.2) 01/04/17 06:30 Hgb 12.6 GM/dL (10.7-15.3) 01/04/17 06:30 Hct 38.3 % (32.4-45.2) 01/04/17 06:30 MCV 92.1 fl (80-96) 01/04/17 06:30 MCHC 32.9 g/dl (32.0-36.0) 01/04/17 06:30 RDW 14.2 % (11.6-15.6) 01/04/17 06:30 Plt Count 393 K/MM3 (134-434) D 01/04/17 06:30 MPV 8.7 fl (7.5-11.1) 01/04/17 06:30 CMP Sodium 137 mmol/L (136-145) 01/04/17 06:30 Potassium 4.0 mmol/L (3.5-5.1) 01/04/17 06:30 Chloride 98 mmol/L (98-107) 01/04/17 06:30 Carbon Dioxide 25 mmol/L (21-32) 01/04/17 06:30 Anion Gap 14 (8-16) 01/04/17 06:30 BUN 20 mg/dL (7-18) H D 01/04/17 06:30 Creatinine 0.7 mg/dL (0.55-1.02) D 01/04/17 06:30 Creat Clearance w eGFR 59.09 (>60) 12/24/16 15:10 Calcium 9.0 mg/dL (8.5-10.1) 01/04/17 06:30 Total Bilirubin 0.9 mg/dL (0.2-1.0) 12/24/16 15:10 AST 20 U/L (15-37) D 12/24/16 15:10 ALT 26 U/L (12-78) 12/24/16 15:10 Alkaline Phosphatase 117 U/L (45-117) 12/24/16 15:10 Total Protein 7.3 g/dl (6.4-8.2) 12/24/16 15:10 Albumin 3.4 g/dl (3.4-5.0) 12/24/16 15:10 Current Medications Generic Name Dose Route Start Last Admin Trade Name Freq PRN Reason Stop Dose Admin Acetaminophen 650 mg 12/26/16 10:48 01/02/17 09:46 Tylenol - PO 650 mg Q6H PRN Administration FEVER OR PAIN Aspirin 81 mg 12/28/16 10:00 01/03/17 10:30 Ecotrin - PO 81 mg DAILY KATIE Administration Bisacodyl 10 mg 12/27/16 20:34 12/27/16 22:03 Dulcolax Suppository - RC 10 mg PRN PRN Administration CONSTIPATION Docusate Sodium 300 mg 12/26/16 22:00 01/03/17 23:40 Colace - PO 300 mg HS KATIE Administration Heparin Sodium (Porcine) 5,000 unit 01/03/17 10:00 01/03/17 23:40 Heparin - SQ 5,000 unit BID KATIE Administration Insulin Aspart 1 vial 01/02/17 07:00 01/04/17 06:50 Novolog Vial Sliding Scale - SQ Not Given TIDAC [facility] Protocol Lisinopril 10 mg 12/26/16 22:00 01/04/17 06:48 Prinivil PO 10 mg BID@0600,2200 [facility] Administration Metformin HCl 500 mg 01/03/17 08:00 01/04/17 08:42 Glucophage - PO 500 mg DAILY@0800 [facility] Administration Multi-Ingredient Ointment 1 applic 12/27/16 22:00 01/04/17 00:15 Zinc Oxide TP Not Given BID [facility] Nifedipine 60 mg 12/27/16 06:00 01/04/17 06:50 Procardia Xl - PO 60 mg DAILY@0600 [facility] Administration AP: DM: Continue Metformin 500 mg QD. Discussed need to monitor renal function. Will stop Metformin if GFR drops to less than 30 BGM BID AC Novolog SS coverage Leukocytosis: WBC 19 today. Mangagement as per ID CVA Pelvic Fracture HTN Problem List - Problems (1) Pelvis fracture Code(s): S32.9XXA - FRACTURE OF UNSP PARTS OF LUMBOSACRAL SPINE AND PELVIS, INIT Qualifiers: Encounter type: initial encounter Pelvic bone location: unspecified part of pelvis Fracture type: closed Fracture alignment: nondisplaced Qualified Code(s): S32.9XXA - Fracture of unspecified parts of lumbosacral spine and pelvis, initial encounter for closed fracture (2) Stroke Code(s): I63.9 - CEREBRAL INFARCTION, UNSPECIFIED
[2017-01-04] MEDS: ASPIRIN COATED 81 MG TABLET.EC PO SCH (10:21)
[2017-01-04] MEDS: HEPARIN NA (PORCINE) 5,000 UNITS/ML 1ML VIAL SQ SCH ×2 (10:21→21:50)
--- NOTE | 2017-01-04 11:27 | PN ---
Progress Note, Physician Chief Complaint: Fall/ Pelvic fracture History of Present Illness: 86 year old female, with a significant past medical history of hypertension and hyperlipidemia, who presents to the emergency department complaining of left leg and pelvic pain s/p mechanical fall last night. The patient reports she was walking down her hallway, when suddenly she fell. Patient reports she was unable to get up on her own, and asked for assistance from her children. She denies any head trauma or LOC. Patient reports left leg pain and pelvic pain radiating into back s/p fall. She reports difficulty ambulating. As per son, the patient went to bed hoping she would wake up better, but she continued to have leg pain and was brought to the ED. Son reports noting ecchymosis to the right ankle, but states patient is able to bare weight on her right leg and not her left leg. Patient reports taking advil with no relief. The patient denies any chest pain, shortness of breath, diaphoresis, or palpitations. The patient denies any fever, chills, headache, dizziness, or changes in vision. The patient is on 1 baby aspirin per day. - Current Medication List Current Medications: Active Medications Acetaminophen (Tylenol -) 650 mg PO Q6H PRN PRN Reason: FEVER OR PAIN Last Admin: 01/02/17 09:46 Dose: 650 mg Aspirin (Ecotrin -) 81 mg PO DAILY [facility] Last Admin: 01/04/17 10:21 Dose: 81 mg Bisacodyl (Dulcolax Suppository -) 10 mg RC PRN PRN PRN Reason: CONSTIPATION Last Admin: 12/27/16 22:03 Dose: 10 mg Docusate Sodium (Colace -) 300 mg PO HS [facility] Last Admin: 01/03/17 23:40 Dose: 300 mg Heparin Sodium (Porcine) (Heparin -) 5,000 unit SQ BID [facility] Last Admin: 01/04/17 10:21 Dose: 5,000 unit Insulin Aspart (Novolog Vial Sliding Scale -) 1 vial SQ TIDAC [facility] PRN Reason: Protocol Last Admin: 01/04/17 06:50 Dose: Not Given Lisinopril (Prinivil) 10 mg PO BID@0600,2200 [facility] Last Admin: 01/04/17 06:48 Dose: 10 mg Metformin HCl (Glucophage -) 500 mg PO DAILY@0800 [facility] Last Admin: 01/04/17 08:42 Dose: 500 mg Multi-Ingredient Ointment (Zinc Oxide) 1 applic TP BID [facility] Last Admin: 01/04/17 10:21 Dose: 1 applic Nifedipine (Procardia Xl -) 60 mg PO DAILY@0600 [facility] Last Admin: 01/04/17 06:50 Dose: 60 mg - Objective Vital Signs: Vital Signs Temperature 99.1 F 01/04/17 06:00 Pulse Rate 93 H 01/04/17 06:00 Respiratory Rate 20 01/04/17 06:00 Blood Pressure 184/84 01/04/17 06:00 O2 Sat by Pulse Oximetry (%) 93 L 01/03/17 21:00 Constitutional: Yes: Well Nourished, No Distress Eyes: Yes: Conjunctiva Clear, EOM Intact HENT: Yes: Atraumatic, Normocephalic Neck: Yes: Supple, Trachea Midline Cardiovascular: Yes: Regular Rate and Rhythm, S1, S2 Respiratory: Yes: Regular, CTA Bilaterally Gastrointestinal: Yes: Normal Bowel Sounds, Soft Musculoskeletal: Yes: Muscle Weakness (Lt sided hemiperisis) Labs: CBC, BMP 01/04/17 06:30 01/04/17 06:30 INR, PTT INR 1.03 (0.82-1.09) 12/24/16 15:10 Problem List - Problems (1) Fall Code(s): W19.XXXA - UNSPECIFIED FALL, INITIAL ENCOUNTER (2) Pelvis fracture Code(s): S32.9XXA - FRACTURE OF UNSP PARTS OF LUMBOSACRAL SPINE AND PELVIS, INIT Qualifiers: Encounter type: initial encounter Pelvic bone location: unspecified part of pelvis Fracture type: closed Fracture alignment: nondisplaced Qualified Code(s): S32.9XXA - Fracture of unspecified parts of lumbosacral spine and pelvis, initial encounter for closed fracture (3) Gait disorder Code(s): R26.9 - UNSPECIFIED ABNORMALITIES OF GAIT AND MOBILITY (4) Constipation by delayed colonic transit Code(s): K59.01 - SLOW TRANSIT CONSTIPATION (5) Sepsis Code(s): A41.9 - SEPSIS, UNSPECIFIED ORGANISM (6) Osteoporosis Code(s): M81.0 - AGE-RELATED OSTEOPOROSIS W/O CURRENT PATHOLOGICAL FRACTURE (7) Stroke Code(s): I63.9 - CEREBRAL INFARCTION, UNSPECIFIED Assessment/Plan (1) Fall Code(s): W19.XXXA - UNSPECIFIED FALL, INITIAL ENCOUNTER (2) Pelvis fracture: Ortho consult Code(s): S32.9XXA - FRACTURE OF UNSP PARTS OF LUMBOSACRAL SPINE AND PELVIS, INIT Qualifiers: Encounter type: initial encounter Pelvic bone location: unspecified part of pelvis Fracture type: closed Fracture alignment: nondisplaced Qualified Code(s): S32.9XXA - Fracture of unspecified parts of lumbosacral spine and pelvis, initial encounter for closed fracture (3) Sepsis: WBC 14 / UC pending Code(s): A41.9 - SEPSIS, UNSPECIFIED ORGANISM (4) Gait disorder Code(s): R26.9 - UNSPECIFIED ABNORMALITIES OF GAIT AND MOBILITY (5) Osteoporosis Code(s): M81.0 - AGE-RELATED OSTEOPOROSIS W/O CURRENT PATHOLOGICAL FRACTURE (6) Constipation by delayed colonic transit Code(s): K59.01 - SLOW TRANSIT CONSTIPATION
[2017-01-04] MEDS ORDERED: INSULIN (NOVOLOG) ASPART 100 UNITS/ML 10ML VIAL ONE (12:24)
--- NOTE | 2017-01-04 13:07 | PN ---
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 Pending authorization. Pt is an excellent rehab candidate. As pt improves, language deficits become more apparent with significant hesitance in initiation and organization in propositional speech tasks. She is fully oriented and seems to have functional LT and ST memory. She yesitates in initiating speech, only producing a phrase or simple sentence at a time. She benefits from cues to focus on first sentence , to segregate to task. Pt's family continue to be educated on ways to facilitate verbal expression including oral reading, retelling a story, sequencing events or recipes etc. Selected Entries 01/03/17 01/03/17 01/03/17 06:29 10:00 11:54 Breakfast 75% Lunch Supper Temperature 99.2 F 97.9 F 01/03/17 01/03/17 01/03/17 13:49 15:31 16:59 Breakfast 75% Lunch 75% Supper Temperature 98.2 F 99.1 F 01/03/17 01/03/17 01/04/17 18:50 22:07 06:00 Breakfast Lunch Supper 75% Temperature 98.9 F 99.1 F 01/04/17 01/04/17 10:00 11:39 Breakfast 75% Lunch Supper Temperature 98.7 F Laboratory Tests 01/04/17 06:30 WBC 19.2 H D Pt demonstrates excellent potential for recovery. I do not believe she is confused although she may appear so due to Aphasia/Apraxia.
--- NOTE | 2017-01-04 14:16 | PN ---
Progress Note, Physician History of Present Illness: patient is stable no complaints worked with PT - Current Medication List Current Medications: Active Medications Acetaminophen (Tylenol -) 650 mg PO Q6H PRN PRN Reason: FEVER OR PAIN Last Admin: 01/02/17 09:46 Dose: 650 mg Aspirin (Ecotrin -) 81 mg PO DAILY [facility] Last Admin: 01/04/17 10:21 Dose: 81 mg Bisacodyl (Dulcolax Suppository -) 10 mg RC PRN PRN PRN Reason: CONSTIPATION Last Admin: 12/27/16 22:03 Dose: 10 mg Docusate Sodium (Colace -) 300 mg PO HS [facility] Last Admin: 01/03/17 23:40 Dose: 300 mg Heparin Sodium (Porcine) (Heparin -) 5,000 unit SQ BID [facility] Last Admin: 01/04/17 10:21 Dose: 5,000 unit Insulin Aspart (Novolog Vial Sliding Scale -) 1 vial SQ TIDAC [facility] PRN Reason: Protocol Last Admin: 01/04/17 12:19 Dose: 2 unit Lisinopril (Prinivil) 10 mg PO BID@0600,2200 [facility] Last Admin: 01/04/17 06:48 Dose: 10 mg Metformin HCl (Glucophage -) 500 mg PO DAILY@0800 [facility] Last Admin: 01/04/17 08:42 Dose: 500 mg Multi-Ingredient Ointment (Zinc Oxide) 1 applic TP BID [facility] Last Admin: 01/04/17 10:21 Dose: 1 applic Nifedipine (Procardia Xl -) 60 mg PO DAILY@0600 [facility] Last Admin: 01/04/17 06:50 Dose: 60 mg - Objective Vital Signs: Vital Signs Temperature 98.7 F 01/04/17 10:00 Pulse Rate 92 H 01/04/17 10:00 Respiratory Rate 18 01/04/17 10:00 Blood Pressure 159/67 01/04/17 10:00 O2 Sat by Pulse Oximetry (%) 95 01/04/17 09:00 Constitutional: Yes: No Distress, Calm Cardiovascular: Yes: Regular Rate and Rhythm Respiratory: Yes: Regular, CTA Bilaterally Gastrointestinal: Yes: Normal Bowel Sounds, Soft Musculoskeletal: Yes: WNL Extremities: Yes: Other Neurological: Yes: Alert, Oriented Psychiatric: Yes: Alert, Oriented Labs: CBC, BMP 01/04/17 06:30 01/04/17 06:30 INR, PTT INR 1.03 (0.82-1.09) 12/24/16 15:10 Assessment/Plan hip fracture uti leukocytosis patients wbc has increased,patient has no symptoms need to see if it keeps on increasing plan no abx at the moment watch wbc closely rest as per primary
[2017-01-04] MEDS: ACETAMINOPHEN 325 MG TABLET (FP) PO PRN (17:13)
[2017-01-04] MEDS: DOCUSATE SODIUM 100 MG CAPSULE (FP) PO SCH (21:53)
[2017-01-05] MEDS: INSULIN SLIDING SCALE (NOVOLOG) 1 VIAL SQ SCH ×3 (06:39→17:44)
[2017-01-05] MEDS: LISINOPRIL 10 MG TABLET (FP) PO SCH ×2 (06:40→21:50)
[2017-01-05] MEDS: NIFEdipine E.R 60 MG TABLET (UD) PO SCH (06:45)
[2017-01-05 08:54] LABS: URINE APPEARANCE CLEAR; URINE BILIRUBIN NEGATIVE (NEGATIVE); URINE BLOOD 1+ (NEGATIVE); URINE COLOR LTYELLOW; URINE GLUCOSE (UA) NEGATIVE (NEGATIVE); URINE KETONE 1+ (NEGATIVE); URINE LEUK ESTERASE TRACE (NEGATIVE); URINE NITRITE NEGATIVE (NEGATIVE); URINE PROTEIN NEGATIVE (NEGATIVE); URINE UROBILINOGEN NEGATIVE E.U./dl (0.2-1.0)
[2017-01-05 09:15] LABS: URINE HYALINE CAST 3 /lpf; URINE RBC 3 /hpf (0-3); URINE WBC 8 /hpf (3-5)
[2017-01-05] MEDS: metFORMIN HCL 500 MG TABLET (FP) PO SCH (09:20)
[2017-01-05 11:14] LABS: MCH 30.7 pg (25.7-33.7); MCHC 33.2 g/dl (32.0-36.0); MEAN CELL VOLUME 92.5 fl (80-96); MEAN PLT VOLUME 8.2 fl (7.5-11.1); PLATELET COUNT 383 K/MM3 (134-434); RDW 13.6 % (11.6-15.6); WHITE BLOOD COUNT 16.2 K/mm3 (4.0-10.0)
[2017-01-05] MEDS: HEPARIN NA (PORCINE) 5,000 UNITS/ML 1ML VIAL SQ SCH ×2 (11:17→21:50)
[2017-01-05] MEDS: ASPIRIN COATED 81 MG TABLET.EC PO SCH (11:17)
[2017-01-05] MEDS: ZINC OXIDE 20% TOPICAL OINTMENT 30 GM TUBE TP SCH ×2 (11:17→21:50)
--- NOTE | 2017-01-05 14:10 | PN ---
Progress Note, Physician History of Present Illness: events from last night noted patient went into urinary retention foleys catheter had to be placed patients wbc marginally low than before - Current Medication List Current Medications: Active Medications Acetaminophen (Tylenol -) 650 mg PO Q6H PRN PRN Reason: FEVER OR PAIN Last Admin: 01/04/17 17:13 Dose: 650 mg Aspirin (Ecotrin -) 81 mg PO DAILY [facility] Last Admin: 01/05/17 11:17 Dose: 81 mg Bisacodyl (Dulcolax Suppository -) 10 mg RC PRN PRN PRN Reason: CONSTIPATION Last Admin: 12/27/16 22:03 Dose: 10 mg Docusate Sodium (Colace -) 300 mg PO HS [facility] Last Admin: 01/04/17 21:53 Dose: 300 mg Heparin Sodium (Porcine) (Heparin -) 5,000 unit SQ BID [facility] Last Admin: 01/05/17 11:17 Dose: 5,000 unit Insulin Aspart (Novolog Vial Sliding Scale -) 1 vial SQ TIDAC [facility] PRN Reason: Protocol Last Admin: 01/05/17 06:39 Dose: Not Given Lisinopril (Prinivil) 10 mg PO BID@0600,2200 [facility] Last Admin: 01/05/17 06:40 Dose: 10 mg Metformin HCl (Glucophage -) 500 mg PO DAILY@0800 [facility] Last Admin: 01/05/17 09:20 Dose: 500 mg Multi-Ingredient Ointment (Zinc Oxide) 1 applic TP BID [facility] Last Admin: 01/05/17 11:17 Dose: 1 applic Nifedipine (Procardia Xl -) 60 mg PO DAILY@0600 [facility] Last Admin: 01/05/17 06:45 Dose: 60 mg - Objective Vital Signs: Vital Signs Temperature 98.4 F 01/05/17 09:45 Pulse Rate 94 H 01/05/17 09:45 Respiratory Rate 20 01/05/17 09:45 Blood Pressure 137/52 01/05/17 09:45 O2 Sat by Pulse Oximetry (%) 95 01/04/17 21:00 Constitutional: Yes: No Distress, Calm Cardiovascular: Yes: Regular Rate and Rhythm Respiratory: Yes: Regular, CTA Bilaterally Gastrointestinal: Yes: Normal Bowel Sounds, Soft Musculoskeletal: Yes: Other Extremities: Yes: Other Neurological: Yes: Alert, Oriented Psychiatric: Yes: Alert, Oriented Labs: CBC, BMP 01/05/17 10:50 01/04/17 06:30 INR, PTT INR 1.03 (0.82-1.09) 12/24/16 15:10 Assessment/Plan hip fracture uti leukocytosis urinary retention wbc marginally low plan looking at the course i think the infection is again coming from her urinary tract patient now has foleys catheter will start on oral abx continue it for 7 days
[2017-01-05] MEDS ORDERED: CEFTRIAXONE 1 GM in DEXTROSE 5%-WATER - 50 ML IVPB SCH (14:15)
--- NOTE | 2017-01-05 15:43 | PN ---
Progress Note, SENIOR FINANCE MANAGER - Note Progress Note: Selected Entries 01/03/17 01/03/17 01/03/17 06:29 10:00 15:31 Temperature 99.2 F 97.9 F 98.2 F 01/03/17 01/03/17 01/04/17 16:59 22:07 06:00 Temperature 99.1 F 98.9 F 99.1 F 01/04/17 01/04/17 01/04/17 10:00 15:40 16:25 Temperature 98.7 F 98.9 F 98.1 F 01/05/17 01/05/17 06:00 09:45 Temperature 99.3 F 98.4 F Laboratory Tests 01/04/17 01/05/17 06:30 10:50 WBC 19.2 H D 16.2 H Speech hesitant, but improving. Excellent candidate for intensive rehabilitation.
[2017-01-05] MEDS: ACETAMINOPHEN 325 MG TABLET (FP) PO PRN (17:02)
[2017-01-05] MEDS: BISACODYL 10 MG SUPP.RECT RC PRN (17:45)
--- NOTE | 2017-01-05 19:55 | PN ---
Progress Note, Physician - Current Medication List Current Medications: Active Medications Acetaminophen (Tylenol -) 650 mg PO Q6H PRN PRN Reason: FEVER OR PAIN Last Admin: 01/05/17 17:02 Dose: 650 mg Aspirin (Ecotrin -) 81 mg PO DAILY [facility] Last Admin: 01/05/17 11:17 Dose: 81 mg Bisacodyl (Dulcolax Suppository -) 10 mg RC PRN PRN PRN Reason: CONSTIPATION Last Admin: 01/05/17 17:45 Dose: 10 mg Cefuroxime Axetil (Ceftin -) 500 mg PO BID [facility] Docusate Sodium (Colace -) 300 mg PO HS [facility] Last Admin: 01/04/17 21:53 Dose: 300 mg Heparin Sodium (Porcine) (Heparin -) 5,000 unit SQ BID [facility] Last Admin: 01/05/17 11:17 Dose: 5,000 unit Insulin Aspart (Novolog Vial Sliding Scale -) 1 vial SQ TIDAC [facility] PRN Reason: Protocol Last Admin: 01/05/17 17:44 Dose: Not Given Lisinopril (Prinivil) 10 mg PO BID@0600,2200 [facility] Last Admin: 01/05/17 06:40 Dose: 10 mg Metformin HCl (Glucophage -) 500 mg PO DAILY@0800 [facility] Last Admin: 01/05/17 09:20 Dose: 500 mg Multi-Ingredient Ointment (Zinc Oxide) 1 applic TP BID [facility] Last Admin: 01/05/17 11:17 Dose: 1 applic Nifedipine (Procardia Xl -) 60 mg PO DAILY@0600 [facility] Last Admin: 01/05/17 06:45 Dose: 60 mg - Objective Vital Signs: Vital Signs Temperature 98.6 F 01/05/17 15:41 Pulse Rate 87 01/05/17 15:41 Respiratory Rate 18 01/05/17 15:41 Blood Pressure 136/58 01/05/17 15:41 O2 Sat by Pulse Oximetry (%) 95 01/05/17 09:00 Labs: CBC, BMP 01/05/17 10:50 01/04/17 06:30 INR, PTT INR 1.03 (0.82-1.09) 12/24/16 15:10 Problem List - Problems (1) Fall Code(s): W19.XXXA - UNSPECIFIED FALL, INITIAL ENCOUNTER (2) Pelvis fracture Code(s): S32.9XXA - FRACTURE OF UNSP PARTS OF LUMBOSACRAL SPINE AND PELVIS, INIT Qualifiers: Encounter type: initial encounter Pelvic bone location: unspecified part of pelvis Fracture type: closed Fracture alignment: nondisplaced Qualified Code(s): S32.9XXA - Fracture of unspecified parts of lumbosacral spine and pelvis, initial encounter for closed fracture (3) Gait disorder Code(s): R26.9 - UNSPECIFIED ABNORMALITIES OF GAIT AND MOBILITY (4) Constipation by delayed colonic transit Code(s): K59.01 - SLOW TRANSIT CONSTIPATION (5) Sepsis Code(s): A41.9 - SEPSIS, UNSPECIFIED ORGANISM (6) Osteoporosis Code(s): M81.0 - AGE-RELATED OSTEOPOROSIS W/O CURRENT PATHOLOGICAL FRACTURE (7) Stroke Code(s): I63.9 - CEREBRAL INFARCTION, UNSPECIFIED
[2017-01-05] MEDS ORDERED: PT OWN MED DRAWER 7, Y5N ONE (21:45)
[2017-01-05] MEDS: DOCUSATE SODIUM 100 MG CAPSULE (FP) PO SCH (21:48)
[2017-01-05] MEDS: CEFUROXIME AXETIL 500 MG TABLET PO SCH (22:58)
[2017-01-06] MEDS: LISINOPRIL 10 MG TABLET (FP) PO SCH (06:37)
[2017-01-06] MEDS: ACETAMINOPHEN 325 MG TABLET (FP) PO PRN (06:38)
[2017-01-06] MEDS: NIFEdipine E.R 60 MG TABLET (UD) PO SCH (06:38)
[2017-01-06] MEDS: INSULIN SLIDING SCALE (NOVOLOG) 1 VIAL SQ SCH (06:43)
[2017-01-06] MEDS: metFORMIN HCL 500 MG TABLET (FP) PO SCH (08:08)
--- NOTE | 2017-01-06 08:30 | PN ---
Progress Note, Physician History of Present Illness: stable now with foleys catheter no new issues according to daughter doing well - Current Medication List Current Medications: Active Medications Acetaminophen (Tylenol -) 650 mg PO Q6H PRN PRN Reason: FEVER OR PAIN Last Admin: 01/06/17 06:38 Dose: 650 mg Aspirin (Ecotrin -) 81 mg PO DAILY [facility] Last Admin: 01/05/17 11:17 Dose: 81 mg Bisacodyl (Dulcolax Suppository -) 10 mg RC PRN PRN PRN Reason: CONSTIPATION Last Admin: 01/05/17 17:45 Dose: 10 mg Cefuroxime Axetil (Ceftin -) 500 mg PO BID [facility] Last Admin: 01/05/17 22:58 Dose: 500 mg Docusate Sodium (Colace -) 300 mg PO HS [facility] Last Admin: 01/05/17 21:48 Dose: 300 mg Heparin Sodium (Porcine) (Heparin -) 5,000 unit SQ BID [facility] Last Admin: 01/05/17 21:50 Dose: 5,000 unit Insulin Aspart (Novolog Vial Sliding Scale -) 1 vial SQ TIDAC [facility] PRN Reason: Protocol Last Admin: 01/06/17 06:43 Dose: Not Given Lisinopril (Prinivil) 10 mg PO BID@0600,2200 [facility] Last Admin: 01/06/17 06:37 Dose: 10 mg Metformin HCl (Glucophage -) 500 mg PO DAILY@0800 [facility] Last Admin: 01/06/17 08:08 Dose: 500 mg Multi-Ingredient Ointment (Zinc Oxide) 1 applic TP BID [facility] Last Admin: 01/05/17 21:50 Dose: 1 applic Nifedipine (Procardia Xl -) 60 mg PO DAILY@0600 [facility] Last Admin: 01/06/17 06:38 Dose: 60 mg - Objective Vital Signs: Vital Signs Temperature 97.5 F L 01/06/17 06:00 Pulse Rate 87 01/06/17 06:00 Respiratory Rate 18 01/06/17 06:00 Blood Pressure 195/74 01/06/17 06:00 O2 Sat by Pulse Oximetry (%) 97 01/05/17 21:00 Constitutional: Yes: No Distress, Calm Cardiovascular: Yes: Regular Rate and Rhythm Respiratory: Yes: Regular, CTA Bilaterally Gastrointestinal: Yes: Normal Bowel Sounds, Soft Musculoskeletal: Yes: Other Extremities: Yes: Other Neurological: Yes: Alert, Oriented Psychiatric: Yes: Alert Labs: CBC, BMP 01/05/17 10:50 01/04/17 06:30 INR, PTT INR 1.03 (0.82-1.09) 12/24/16 15:10 Assessment/Plan Problem List - Problems (1) Fall Code(s): W19.XXXA - UNSPECIFIED FALL, INITIAL ENCOUNTER (2) Pelvis fracture Code(s): S32.9XXA - FRACTURE OF UNSP PARTS OF LUMBOSACRAL SPINE AND PELVIS, INIT Qualifiers: Encounter type: initial encounter Pelvic bone location: unspecified part of pelvis Fracture type: closed Fracture alignment: nondisplaced Qualified Code(s): S32.9XXA - Fracture of unspecified parts of lumbosacral spine and pelvis, initial encounter for closed fracture (3) Gait disorder Code(s): R26.9 - UNSPECIFIED ABNORMALITIES OF GAIT AND MOBILITY (4) Constipation by delayed colonic transit Code(s): K59.01 - SLOW TRANSIT CONSTIPATION (5) Sepsis Code(s): A41.9 - SEPSIS, UNSPECIFIED ORGANISM (6) Osteoporosis Code(s): M81.0 - AGE-RELATED OSTEOPOROSIS W/O CURRENT PATHOLOGICAL FRACTURE (7) Stroke Code(s): I63.9 - CEREBRAL INFARCTION, UNSPECIFIED 8 uti 9 urinary retention 10 leukocytosis plan continue current mgmt abx for a week rest as per primary team
[2017-01-06] MEDS ORDERED: PT OWN MED DRAWER 7, Y5N ONE (09:37)
[2017-01-06] MEDS: ASPIRIN COATED 81 MG TABLET.EC PO SCH (09:41)
[2017-01-06] MEDS: CEFUROXIME AXETIL 500 MG TABLET PO SCH (09:41)
[2017-01-06] MEDS: HEPARIN NA (PORCINE) 5,000 UNITS/ML 1ML VIAL SQ SCH (09:42)
[2017-01-06] MEDS: ZINC OXIDE 20% TOPICAL OINTMENT 30 GM TUBE TP SCH (09:43)
--- NOTE | 2017-01-06 09:48 | PN ---
Progress Note, Physician - Current Medication List Current Medications: Active Medications Acetaminophen (Tylenol -) 650 mg PO Q6H PRN PRN Reason: FEVER OR PAIN Last Admin: 01/06/17 06:38 Dose: 650 mg Aspirin (Ecotrin -) 81 mg PO DAILY [facility] Last Admin: 01/06/17 09:41 Dose: 81 mg Bisacodyl (Dulcolax Suppository -) 10 mg RC PRN PRN PRN Reason: CONSTIPATION Last Admin: 01/05/17 17:45 Dose: 10 mg Cefuroxime Axetil (Ceftin -) 500 mg PO BID [facility] Last Admin: 01/06/17 09:41 Dose: 500 mg Docusate Sodium (Colace -) 300 mg PO HS [facility] Last Admin: 01/05/17 21:48 Dose: 300 mg Heparin Sodium (Porcine) (Heparin -) 5,000 unit SQ BID [facility] Last Admin: 01/06/17 09:42 Dose: 5,000 unit Insulin Aspart (Novolog Vial Sliding Scale -) 1 vial SQ TIDAC [facility] PRN Reason: Protocol Last Admin: 01/06/17 06:43 Dose: Not Given Lisinopril (Prinivil) 10 mg PO BID@0600,2200 [facility] Last Admin: 01/06/17 06:37 Dose: 10 mg Metformin HCl (Glucophage -) 500 mg PO DAILY@0800 [facility] Last Admin: 01/06/17 08:08 Dose: 500 mg Multi-Ingredient Ointment (Zinc Oxide) 1 applic TP BID [facility] Last Admin: 01/06/17 09:43 Dose: 1 applic Nifedipine (Procardia Xl -) 60 mg PO DAILY@0600 [facility] Last Admin: 01/06/17 06:38 Dose: 60 mg - Objective Vital Signs: Vital Signs Temperature 97.5 F L 01/06/17 06:00 Pulse Rate 87 01/06/17 06:00 Respiratory Rate 18 01/06/17 06:00 Blood Pressure 195/74 01/06/17 06:00 O2 Sat by Pulse Oximetry (%) 97 01/05/17 21:00 Labs: CBC, BMP 01/05/17 10:50 01/04/17 06:30 INR, PTT INR 1.03 (0.82-1.09) 12/24/16 15:10 Problem List - Problems (1) Fall Code(s): W19.XXXA - UNSPECIFIED FALL, INITIAL ENCOUNTER (2) Pelvis fracture Code(s): S32.9XXA - FRACTURE OF UNSP PARTS OF LUMBOSACRAL SPINE AND PELVIS, INIT Qualifiers: Encounter type: initial encounter Pelvic bone location: unspecified part of pelvis Fracture type: closed Fracture alignment: nondisplaced Qualified Code(s): S32.9XXA - Fracture of unspecified parts of lumbosacral spine and pelvis, initial encounter for closed fracture (3) Gait disorder Code(s): R26.9 - UNSPECIFIED ABNORMALITIES OF GAIT AND MOBILITY (4) Constipation by delayed colonic transit Code(s): K59.01 - SLOW TRANSIT CONSTIPATION (5) Sepsis Code(s): A41.9 - SEPSIS, UNSPECIFIED ORGANISM (6) Osteoporosis Code(s): M81.0 - AGE-RELATED OSTEOPOROSIS W/O CURRENT PATHOLOGICAL FRACTURE (7) Stroke Code(s): I63.9 - CEREBRAL INFARCTION, UNSPECIFIED
[2017-01-06 11:15] VITALS: BP 146/58; PULSE 98; TEMP 98.8
== END 2017-01-06 10:22 | DRG 535 ==
LOC: JER 09:19 → JERBED 16:11 → UNDOADMIN 16:16 → J8W 18:16
PROVIDERS: ADMIT Internal Medicine; ATTEND Internal Medicine
DX: S32.692A Other specified fracture of left ischium, initial encounter for closed fracture (principal); I63.8 Other cerebral infarction; S32.19XA Other fracture of sacrum, initial encounter for closed fracture; S32.591A Other specified fracture of right pubis, initial encounter for closed fracture; N39.0 Urinary tract infection, site not specified; G25.9 Extrapyramidal and movement disorder, unspecified; I69.354 Hemiplegia and hemiparesis following cerebral infarction affecting left non-dominant side; E11.9 Type 2 diabetes mellitus without complications; M12.88 Other specific arthropathies, not elsewhere classified, other specified site; I10 Essential (primary) hypertension; E78.5 Hyperlipidemia, unspecified; F03.90 Unspecified dementia, unspecified severity, without behavioral disturbance, psychotic disturbance, mood disturbance, and anxiety; R26.9 Unspecified abnormalities of gait and mobility; D72.828 Other elevated white blood cell count; K59.01 Slow transit constipation; M81.0 Age-related osteoporosis without current pathological fracture; R29.708 NIHSS score 8; R33.8 Other retention of urine; W18.39XA Other fall on same level, initial encounter; Y93.89 Activity, other specified; Y92.89 Other specified places as the place of occurrence of the external cause; T40.4X5A Adverse effect of other synthetic narcotics, initial encounter
CPT/HCPCS: 36415; 70450-TC; 70551-TC; 71010-TC; 72131-TC; 72192-TC; 72195-TC; 73523-TC; 73610-TC-RT; 73630-TC-RT; 73700-TC-RT; 73718-TC; 80048; 80053; 81003; 81015; 83036; 83880; 84484; 85025; 85027; 85610; 86850; 86900; 86901; 87086; 87186; 93005; 93010; 93306-TC; 93880-TC; 97162-GP; 99283-25; J1644

== ENCOUNTER 2017-03-02 12:44 | Inpatient (IN) | payer OTHER ==
--- NOTE | 2017-03-02 12:56 | PDOC ---
Attending Attestation - Resident Resident Name: Daiana Inman - ED Attending Attestation I have performed the following: I have examined & evaluated the patient, The case was reviewed & discussed with the resident, I agree w/resident's findings & plan, Exceptions are as noted - HPI HPI: 03/02/17 12:56 The patient is an 87 year old female with a significant past medical history of HTN, HLD, type two diabetes, CVA, previous episodes of decreased responsiveness (three previously) who was in her usual state of health until 11:50am when she acutely became lethargic and was drooling and leaning over to her left side. Per her family member, her symptoms have completely resolved. The three other episodes were similar and resolved completely. She does not lose consciousness. She does not have muscular rigidity or convulsions. No urinary incontinence. - Physicial Exam PE: 03/02/17 13:03 Vitals noted No new focal abnormalities noted on neurological examination 03/02/17 13:20 - Medical Decision Making 03/02/17 13:04 Will code horowitz Will initiate CVA order set 03/02/17 13:17 CT read, no evidence of acute intracranial pathology Her symptoms have now completely resolved and she is at baseline I also suspect potential non-CVA etiology For these reasons I feel that she is not a candidate for TPA 03/02/17 13:20 03/02/17 14:25 Labs noted Clinical impression: Transient encephalopathy MARIO Mild hyperkalemia Case discussed in detail with admitting provider including history, physical exam and ancillary studies. Admitting physician has assumed care for the patient, will follow all pending diagnostics and will complete the evaluation and treatment. Discharge Disposition - Diagnosis Encephalopathy - Discharge Dispostion Admit: Yes - Referrals Referrals: Kalyan Sanders MD [Primary Care Provider] - - Patient Instructions - Post Discharge Activity
[2017-03-02] MEDS ORDERED: SODIUM CHLORIDE 1,000 ML IV SCH (13:00)
[2017-03-02 13:27] VITALS: BMI 23.1
--- NOTE | 2017-03-02 13:39 | PDOC ---
History of Present Illness - General History Source: Patient, Family, Old Records Exam Limitations: No Limitations - History of Present Illness Initial Comments: 03/02/17 13:40 The patient is an 86-year-old woman, from [facility], accompanied by her daughter, with a significant past medical history of hypertension, hypercholesterolemia and questionable cerebrovascular accident (in December of this year) who presents to the emergency department via EMS with altered mental status. As per patients daughter, this morning, at approximately 10:00 AM-12: 00 PM, the patient was watching a [employer] baseball rerun. Patients daughter stepped into the living room and noted that the patient was leaning towards her left side with associated right facial symmetry, clammy, right sided tongue protrusion and slurred speech. Patients daughter states that the patient has had three previous episodes in the past, similar to todays since her pelvic fracture in December. At any of the previous episodes, patient did not undergo Head CT and she was not placed on any anticoagulants. Daughter also states that the patient was initially placed on Coreg, but has been recently removed from the Coreg. Patients daughter expresses concern that the patients symptoms are related to her recent medication changes. As per patient, she states that she is currently asymptomatic. No recent head injury. No loss of consciousness. She denies any chest pain, lightheadedness, dizziness, visual changes,m headache, neck pain, back pain, leg swelling/pain, nausea, vomiting, cough, shortness of breath, hematuria, hematochezia, urinary/ bowel incontinence, dysuria. She admits that for the past two weeks, she has had a runny nose. No fever, chills. Patient states that her physical therapy has helped significantly. Code aguilar was activated at 12:55 PM and patient was rushed to CT. 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 No tobacco, EtOH and recreational drug use. Primary Care Physician: Dr. Kalyan Sanders [phone]/ Advanced Directives: Do Not Resuscitate. <Ju Mccarthy - Last Filed: 03/02/17 14:05> - General History Source: Patient, Family Exam Limitations: No Limitations - History of Present Illness Initial Comments: 03/02/17 14:09 <HennyDaiana - Last Filed: 03/02/17 15:41> - General Chief Complaint: Altered Mental Status Stated Complaint: CVA Time Seen by Provider: 03/02/17 12:54 Past History <Ju Mccarthy - Last Filed: 03/02/17 14:05> - Past Medical History Anemia: No Asthma: No Cancer: No Cardiac Disorders: No CVA: Yes COPD: No CHF: No Dementia: No Diabetes: Yes GI Disorders: No Disorders: No HTN: Yes Hypercholesterolemia: Yes Liver Disease: No Seizures: No Thyroid Disease: No - Surgical History Abdominal Surgery: No Appendectomy: No Cardiac Surgery: No Cholecystectomy: No Lung Surgery: No Neurologic Surgery: No Orthopedic Surgery: No - Psycho/Social/Smoking Cessation Hx Anxiety: No Suicidal Ideation: No Smoking History: Never smoked Have you smoked in the past 12 months: No Hx Alcohol Use: No Drug/Substance Use Hx: No Substance Use Type: None <Daiana Inman - Last Filed: 03/02/17 15:41> - Past Medical History Allergies/Adverse Reactions: Allergies Allergy/AdvReac Type Severity Reaction Status Date / Time tramadol Allergy Unknown Verified 03/02/17 13:17 Home Medications: Ambulatory Orders Aspirin [ASA -] 81 mg PO DAILY 12/24/16 Lisinopril 10 mg PO BID 12/24/16 Cholecalciferol (Vitamin D3) [Vitamin D3] 400 unit PO DAILY 03/02/17 Diphenhydramine HCl [Benadryl -] 25 mg PO Q6H PRN 03/02/17 Docusate Sodium [Colace -] 300 mg PO HS 03/02/17 Glipizide [Glipizide ER] 2.5 mg PO DAILY 03/02/17 Heparin Sodium,Porcine/Pf [Heparin Sod 5,000 Unit/ 0.5 ml] 5,000 unit IM BID Hydrochlorothiazide 25 mg PO DAILY 03/02/17 Lactulose [Cephulac -] 10 gm PO PRN 03/02/17 Nifedipine [Procardia Xl] 60 mg PO DAILY 03/02/17 Ondansetron [Zofran -] 4 mg PO BID PRN 03/02/17 Vitamin B Comp W-C [Nephro-Valentín -] 1 tablet PO DAILY 03/02/17 *Physical Exam - Vital Signs Last Vital Signs Temp Pulse Resp BP Pulse Ox 97.6 F 97 H 20 142/97 97 03/02/17 13:11 03/02/17 13:11 03/02/17 13:11 03/02/17 13:11 03/02/17 13:11 - Physical Exam Comments: 03/02/17 13:41 General: Awake. Alert and oriented x3. Mild dysarthria HEENT: normocephalic, atraumatic, PERRLA, EOMI, sclera anicteric, conjunctiva clear, moist mucous membranes CV: 2/6 systolic ejection murmur beast heard at the left mid clavicular line with pronounced S1. Resp: CTA bilaterally GI: Soft, non-tender, non distended, normoactive bowel sounds. No guarding or rebound. Neuro: The patient is alert and oriented x3. CN II-XII grossly intact. The right upper extremity is 4+ over 5 and the left upper extremity is 4-/5. The right lower lower extremity is 4+/5 and the left lower extremity is 4-/5. Sensation is intact to light touch throughout. [id number] is normal in both upper extremities. 1+ reflex over the right upper extremity. 1- reflex over the left upper extremity. Decreased reflexes throughout the bilateral lower extremities. Mild dysarthria Musculoskeletal: Bilateral peripheral trace edema <Ju Mccarthy - Last Filed: 03/02/17 14:05> - Vital Signs Last Vital Signs Temp Pulse Resp BP Pulse Ox 97.6 F 97 H 20 142/97 97 03/02/17 13:11 03/02/17 13:11 03/02/17 13:11 03/02/17 13:11 03/02/17 13:11 <Daiana Inman - Last Filed: 03/02/17 15:41> Heart Score/ECG Review #1 General ECG Interpretation: Sinus Rhythm, Normal Rate, Normal Intervals, No acute ischemic changes <Daiana Inman - Last Filed: 03/02/17 15:41> ED Treatment Course - LABORATORY CBC & Chemistry Diagram: 03/02/17 13:17 03/02/17 13:17 <Ju Mccarthy - Last Filed: 03/02/17 14:05> - LABORATORY CBC & Chemistry Diagram: 03/02/17 13:17 03/02/17 13:17 <Daiana Inman - Last Filed: 03/02/17 15:41> Medical Decision Making - Medical Decision Making 03/02/17 14:09 Patient with history of CVA 2 mo ago presents with transient episode of lethargy /AMS, now at baseline. -code horowitz called -CT head unremarkable for acute intracranial pathology -CXR unremarkable. r/o metabolic, infectious and cardiac causes for AMS -cbc, cmp, cholesterol panel, cardiac profile, ekg 03/02/17 14:12 CBC mild leukocytosis 10.2 with neutrophilic predominance, CMP mild hyperkalemia 5.2, MARIO: bun/creat 42/1.3 Will contact PCP for admission to tele 03/02/17 14:26 03/02/17 14:27 03/02/17 14:28 03/02/17 14:29 03/02/17 14:29 <Daiana Inman - Last Filed: 03/02/17 15:41> *DC/Admit/Observation/Transfer <Ju Mccarthy - Last Filed: 03/02/17 14:05> - Discharge Dispostion Admit: Yes <Daiana Inman - Last Filed: 03/02/17 15:41> Diagnosis at time of Disposition: Encephalopathy, Transient alteration of awareness - Referrals Referrals: Kalyan Sanders MD [Primary Care Provider] -
[2017-03-02 13:44] LABS: BASOPHIL 0.6 % (0-2.0); EOSINOPHIL 1.5 % (0-4.5); MCH 30.9 pg (25.7-33.7); MCHC 33.9 g/dl (32.0-36.0); MEAN CELL VOLUME 91.3 fl (80-96); MEAN PLT VOLUME 7.8 fl (7.5-11.1); NEUTROPHILS 76.7 % (42.8-82.8); PLATELET COUNT 307 K/MM3 (134-434); RDW 14.3 % (11.6-15.6); WHITE BLOOD COUNT 10.2 K/mm3 (4.0-10.0)
[2017-03-02 14:07] LABS: ALBUMIN 3.7 g/dl (3.4-5.0); ANION GAP 14 (8-16); BILIRUBIN,TOTAL 0.4 mg/dL (0.2-1.0); CALCIUM 9.2 mg/dL (8.5-10.1); CHOLESTEROL 289 mg/dL (50-200); CO2 26 mmol/L (21-32); CREATININE 1.3 mg/dL (0.55-1.02); GLUCOSE,RANDOM 141 mg/dL (74-106); SGOT/AST 17 U/L (15-37); SGPT/ALT 23 U/L (12-78); TOT PROT 7.8 g/dl (6.4-8.2)
[2017-03-02 14:08] LABS: INR 0.99 (0.82-1.09); PROTHROMBIN TIME (PATIENT) 10.9 SEC (9.98-11.88)
[2017-03-02 14:13] LABS: ALK PHOS 131 U/L (45-117); TROPONIN I < 0.02 ng/ml (0.00-0.05)
[2017-03-02] MEDS ORDERED: ASPIRIN COATED 81 MG TABLET.EC PO SCH (15:15)
[2017-03-02] MEDS ORDERED: ASPIRIN COATED 81 MG TABLET.EC ONE (15:40)
[2017-03-02 15:50] LABS: LDL CHOLESTEROL (ONLY SJRH) 151 mg/dL (5-100)
[2017-03-02 17:41] LABS: URINE APPEARANCE CLOUDY; URINE BILIRUBIN NEGATIVE (NEGATIVE); URINE BLOOD NEGATIVE (NEGATIVE); URINE COLOR YELLOW; URINE GLUCOSE (UA) NEGATIVE (NEGATIVE); URINE KETONE NEGATIVE (NEGATIVE); URINE NITRITE NEGATIVE (NEGATIVE); URINE PROTEIN NEGATIVE (NEGATIVE); URINE UROBILINOGEN NEGATIVE E.U./dl (0.2-1.0)
[2017-03-02 17:52] LABS: URINE LEUK ESTERASE 3+ (NEGATIVE)
[2017-03-02 17:53] LABS: URINE BACTERIA FEW /hpf (NONE SEEN); URINE HYALINE CAST 3 /lpf; URINE MUCUS RARE; URINE RBC 3 /hpf (0-3); URINE WBC 269 /hpf (3-5)
[2017-03-02] MEDS ORDERED: ATORVASTATIN CA 80 MG TABLET (FP) PO ONE (17:54)
[2017-03-02] MEDS ORDERED: ATORVASTATIN CA 80 MG TABLET (FP) ONE (18:26)
[2017-03-02] MEDS ORDERED: SODIUM CHLORIDE 1,000 ML IV ONE (22:00)
[2017-03-02] MEDS: DOCUSATE SODIUM 100 MG CAPSULE (FP) PO SCH (22:22)
[2017-03-02] MEDS: HEPARIN NA (PORCINE) 5,000 UNITS/ML 1ML VIAL SQ SCH (22:22)
[2017-03-02] MEDS: LISINOPRIL 20 MG TABLET (FP) PO SCH (22:23)
[2017-03-03] MEDS ORDERED: glipiZIDE-XL 2.5 MG TAB.ER.24 PO SCH (07:00)
--- NOTE | 2017-03-03 08:43 | CON.NEURO ---
Consult - History of Present Illness History of Present Illness: 86 Year old Female , history of hypertension and ? Hyperlipidemia, she was taking antihypertensive medication and aspirin at intermediate. She is at [facility]. She was in short term rehab and had right sided stroke last time. She had three episode since dicharge , when she would pass out. One time , she was given insulin and sh ehas not eaten. There was one brief jerking first time, and last two times, there was no jerking motion. Whole episode would last one minute and there was no incontinence or post ictal confusion or tongue bite. - Past Medical History [employer]: Yes: Dementia Gastrointestinal: Yes: Constipation ...: No - Past Surgical History Past Surgical History: Yes: None - Alcohol/Substance Use Hx Alcohol Use: No - Smoking History Smoking history: Never smoked Have you smoked in the past 12 months: No Home Medications - Allergies Allergies/Adverse Reactions: Allergies Allergy/AdvReac Type Severity Reaction Status Date / Time tramadol Allergy Unknown Verified 03/02/17 13:17 - Home Medications Home Medications: Ambulatory Orders Aspirin [ASA -] 81 mg PO DAILY 12/24/16 Lisinopril 20 mg PO HS 12/24/16 Cholecalciferol (Vitamin D3) [Vitamin D3] 400 unit PO DAILY 03/02/17 Diphenhydramine HCl [Benadryl -] 25 mg PO Q6H PRN 03/02/17 Docusate Sodium [Colace -] 300 mg PO HS 03/02/17 Glipizide [Glipizide ER] 2.5 mg PO DAILY 03/02/17 Heparin Sodium,Porcine/Pf [Heparin Sod 5,000 Unit/ 0.5 ml] 5,000 unit IM BID Hydrochlorothiazide 25 mg PO DAILY 03/02/17 Lactulose [Cephulac -] 10 gm PO PRN 03/02/17 Nifedipine [Procardia Xl] 60 mg PO DAILY 03/02/17 Ondansetron [Zofran -] 4 mg PO BID PRN 03/02/17 Vitamin B Comp W-C [Nephro-Valentín -] 1 tablet PO DAILY 03/02/17 Physical Exam-Neuro Vital Signs: Vital Signs Temperature 98.2 F 03/03/17 05:58 Pulse Rate 90 03/03/17 05:58 Respiratory Rate 20 03/03/17 05:58 Blood Pressure 158/62 03/03/17 05:58 O2 Sat by Pulse Oximetry (%) 96 03/02/17 21:25 Labs: INR, PTT INR 0.99 (0.82-1.09) 03/02/17 13:17 NIH Stroke Scale - Total Score NIH Stroke Scale Score: 0 Imaging - Results Cat Scan: Report Reviewed Assessment/Plan 86 Year old Female , history of hypertension and ? Hyperlipidemia, she was taking antihypertensive medication and aspirin at intermediate. She is at [facility]. She was in short term rehab and had right sided stroke last time. She had three episode since dicharge , when she would pass out. One time , she was given insulin and sh ehas not eaten. There was one brief jerking first time, and last two times, there was no jerking motion. Whole episode would last one minute and there was no incontinence or post ictal confusion or tongue bite. She has ct scan done it was quite unremarkable. Past Medicl history of HTN,Stroke and dementia Neurological Examination alert follow command , there is no facial asymmetry , speech is clear and coherent pupils are reactive, she has good strength in both upper extremity left lower extremity is 4+ from old stroke CT head reviewed Assessment/Plan 86 year old female history of htn, ? hyperlipidemia, non smoker, no cad , no dm , had stroke in past and is at [facility] term rehab at [facility]. She has three episode of passing out, clinically it appears to be syncopal episode, less likley to be seizures ( no tonic-clonic activity, no post ictal, whole episode brief, no incontinence or tongue bite), less likely to be TIA ( event are more global , as loss of consiousness ) Plan continue with aspirin and statin eeg continue same medication cardiology consult and tele obervation thanks for consult
[2017-03-03] MEDS ORDERED: PT OWN MED DRAWER 7, Y5N ONE (09:41)
--- NOTE | 2017-03-03 09:49 | HP ---
Admitting History and Physical - Primary Care Physician PCP: Kalyan Sanders - Admission Chief Complaint: Loss of consciousness History of Present Illness: 87 yo female with significant past medical history of hypertension, hyperlipidemia, DM, h/o CVA in the past, admitted with altered mental status. History provided by her daughter as patient does not recall events. When her daughter entered he room at [facility], she found her lethargic and drooling in her chair. Shortly after she returned to baseline without remembering any details of event. She denies chest pain, shortness of breath, palpitation or dizziness prior to the episode. This is the third time this episode has happened , and was admitted her 12/2016 for similar. Patient seen and examined. Daughter present by the bedside. Sitting in chair. Interactive in conversation. Denies chest pain, shortness of breath, palpitation. Daughter reports similar episodes happening for many yrs in the past as well. 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: Yes: Dementia Cardiovascular: Yes: HTN, Hyperlipdemia Gastrointestinal: Yes: Constipation ...: No - Past Surgical History Past Surgical History: Yes: None - Smoking History Smoking history: Never smoked Have you smoked in the past 12 months: No - Alcohol/Substance Use Hx Alcohol Use: No Home Medications - Allergies Allergies/Adverse Reactions: Allergies Allergy/AdvReac Type Severity Reaction Status Date / Time tramadol Allergy Unknown Verified 03/02/17 13:17 - Home Medications Home Medications: Ambulatory Orders Aspirin [ASA -] 81 mg PO DAILY 12/24/16 Lisinopril 20 mg PO HS 12/24/16 Cholecalciferol (Vitamin D3) [Vitamin D3] 400 unit PO DAILY 03/02/17 Diphenhydramine HCl [Benadryl -] 25 mg PO Q6H PRN 03/02/17 Docusate Sodium [Colace -] 300 mg PO HS 03/02/17 Glipizide [Glipizide ER] 2.5 mg PO DAILY 03/02/17 Heparin Sodium,Porcine/Pf [Heparin Sod 5,000 Unit/ 0.5 ml] 5,000 unit IM BID Hydrochlorothiazide 25 mg PO DAILY 03/02/17 Lactulose [Cephulac -] 10 gm PO PRN 03/02/17 Nifedipine [Procardia Xl] 60 mg PO DAILY 03/02/17 Ondansetron [Zofran -] 4 mg PO BID PRN 03/02/17 Vitamin B Comp W-C [Nephro-Valentín -] 1 tablet PO DAILY 03/02/17 Review of Systems - Review of Systems Constitutional: reports: Lethargy Eyes: reports: No Symptoms HENT: reports: No Symptoms Neck: reports: No Symptoms Cardiovascular: reports: No Symptoms Respiratory: reports: No Symptoms Gastrointestinal: reports: No Symptoms Genitourinary: reports: No Symptoms Musculoskeletal: reports: No Symptoms Integumentary: reports: No Symptoms Neurological: reports: No Symptoms Endocrine: reports: No Symptoms Hematology/Lymphatic: reports: No Symptoms Psychiatric: reports: No Symptoms Physical Examination Vital Signs: Vital Signs Temperature 98.2 F 03/03/17 05:58 Pulse Rate 90 03/03/17 05:58 Respiratory Rate 20 03/03/17 05:58 Blood Pressure 158/62 03/03/17 05:58 O2 Sat by Pulse Oximetry (%) 96 03/02/17 21:25 Constitutional: Yes: No Distress, Anxious Eyes: Yes: Conjunctiva Clear, EOM Intact, PERRL HENT: Yes: Atraumatic, Normocephalic Neck: Yes: Supple, Trachea Midline Cardiovascular: Yes: WNL, Regular Rate and Rhythm Respiratory: Yes: Regular, CTA Bilaterally Gastrointestinal: Yes: Normal Bowel Sounds, Soft ...Rectal Exam: Yes: Deferred Musculoskeletal: Yes: WNL Extremities: Yes: WNL Edema: No Peripheral Pulses WNL: Yes Neurological: Yes: Alert, Oriented ...Motor Strength: WNL Psychiatric: Yes: Alert, Oriented Imaging - Results Chest X-ray: Report Reviewed Cat Scan: Report Reviewed Problem List - Problems (1) Syncope Assessment/Plan: Three episodes in recent past. Neurology and cardiology consulted. Continue aspirin. Tele Monitoring. Code(s): R55 - SYNCOPE AND COLLAPSE (2) Transient alteration of awareness Assessment/Plan: ?? seizures, CVA, hypoglycemia. W/U in progress. Cardiology, neurology, endocrinology consulted. Code(s): R40.4 - TRANSIENT ALTERATION OF AWARENESS (3) Hypertension Assessment/Plan: Slightly elevated. Continue procardia xl 60 mg daily and lisinopril 20 mg daily. Low salt diet. Code(s): I10 - ESSENTIAL (PRIMARY) HYPERTENSION (4) Hyperlipidemia Assessment/Plan: Ldl 151. Atorvastatin 20 mg daily started. Monitor lfts and cpk. Code(s): E78.5 - HYPERLIPIDEMIA, UNSPECIFIED (5) Stroke Assessment/Plan: Continue aspirin and statin. Code(s): I63.9 - CEREBRAL INFARCTION, UNSPECIFIED (6) Diabetes mellitus Assessment/Plan: BGMs/ISS Continue glipizide xl 2.5 mg daily. Endorinologist consulted because family thinks hypoglycemia is the reason for her ams. Code(s): E11.9 - TYPE 2 DIABETES MELLITUS WITHOUT COMPLICATIONS Qualifiers: Diabetes mellitus type: type 2 (7) Acute renal failure (ARF) Assessment/Plan: Hydrochlorthiazide discontinued. Continue gentle hydration. Code(s): N17.9 - ACUTE KIDNEY FAILURE, UNSPECIFIED
[2017-03-03] MEDS: ASPIRIN COATED 81 MG TABLET.EC PO SCH (09:59)
[2017-03-03] MEDS: VITAMIN B COMP W-C 1 EA TABLET PO SCH (09:59)
[2017-03-03] MEDS: HEPARIN NA (PORCINE) 5,000 UNITS/ML 1ML VIAL SQ SCH ×2 (09:59→21:57)
[2017-03-03] MEDS ORDERED: HYDROCHLOROTHIAZIDE 25 MG TABLET (FP) PO SCH (10:00)
[2017-03-03] MEDS: CHOLECALCIFEROL (VITAMIN D3) 400 UNIT TABLET (FP) PO SCH (10:00)
[2017-03-03] MEDS: NIFEdipine E.R 60 MG TABLET (UD) PO SCH (10:00)
--- NOTE | 2017-03-03 11:25 | CON.CARD ---
Cardiology Consult (text) - Consultation Consultation Note: cc: ams hpi: 87 f hx htn, hld, dm, cva here with ams. Pt does not recall events but per daughter she was found lethargic and drooling in her chair at [place]. Shortly after she returned to baseline without remembering any details of event. No prodrome sxs. No cp, sob, palps, dizzy, pnd, orthopnea, le edema. This is the third time this episode has happened, and was admitted her 12/2016 for similar. Currently feeling well, no complaints. pmh: per hpi psh: nc social: no tob fam: no premature cad ros: per hpi; no nvd, gonsalez, vision changes, cough, nasal congestion, abd pain, gib , hematuria, dysuria meds: Home Medications Medication Instructions Recorded Aspirin [ASA -] 81 mg PO DAILY 12/24/16 Lisinopril 20 mg PO HS 12/24/16 Cholecalciferol (Vitamin D3) 400 unit PO DAILY 03/02/17 [Vitamin D3] Diphenhydramine HCl [Benadryl -] 25 mg PO Q6H PRN 03/02/17 Docusate Sodium [Colace -] 300 mg PO HS 03/02/17 Glipizide [Glipizide ER] 2.5 mg PO DAILY 03/02/17 Heparin Sodium,Porcine/Pf [Heparin 5,000 unit IM BID 03/02/17 Sod 5,000 Unit/ 0.5 ml] Hydrochlorothiazide 25 mg PO DAILY 03/02/17 Lactulose [Cephulac -] 10 gm PO PRN 03/02/17 Nifedipine [Procardia Xl] 60 mg PO DAILY 03/02/17 Ondansetron [Zofran -] 4 mg PO BID PRN 03/02/17 Vitamin B Comp W-C [Nephro-Valentín -] 1 tablet PO DAILY 03/02/17 pe: Vital Signs Period Temp Pulse Resp BP Sys/Horne Pulse Ox Last 24 Hr 97.6 F-98.2 F 89-97 18-20 122-158/46-97 96-100 nad no jvd rrr s1s2 no mrg cta bl nl eff aaox3 no le e/c/c abd nt nd pos bs no jaundice diaphoresis pos dp pt no carotid bruits Laboratory Last Values WBC 10.2 K/mm3 (4.0-10.0) H D 03/02/17 13:17 RBC 3.89 M/mm3 (3.60-5.2) 03/02/17 13:17 Hgb 12.0 GM/dL (10.7-15.3) 03/02/17 13:17 Hct 35.5 % (32.4-45.2) 03/02/17 13:17 MCV 91.3 fl (80-96) 03/02/17 13:17 MCHC 33.9 g/dl (32.0-36.0) 03/02/17 13:17 RDW 14.3 % (11.6-15.6) 03/02/17 13:17 Plt Count 307 K/MM3 (134-434) 03/02/17 13:17 MPV 7.8 fl (7.5-11.1) 03/02/17 13:17 Neutrophils % 76.7 % (42.8-82.8) 03/02/17 13:17 Lymphocytes % 13.5 % (8-40) D 03/02/17 13:17 Monocytes % 7.7 % (3.8-10.2) 03/02/17 13:17 Eosinophils % 1.5 % (0-4.5) 03/02/17 13:17 Basophils % 0.6 % (0-2.0) 03/02/17 13:17 INR 0.99 (0.82-1.09) 03/02/17 13:17 Sodium 137 mmol/L (136-145) 03/02/17 13:17 Potassium 5.2 mmol/L (3.5-5.1) H D 03/02/17 13:17 Chloride 97 mmol/L (98-107) L 03/02/17 13:17 Carbon Dioxide 26 mmol/L (21-32) 03/02/17 13:17 Anion Gap 14 (8-16) 03/02/17 13:17 BUN 42 mg/dL (7-18) H D 03/02/17 13:17 Creatinine 1.3 mg/dL (0.55-1.02) H D 03/02/17 13:17 Creat Clearance w eGFR 38.57 (>60) 03/02/17 13:17 POC Glucometer 113 UNITS (()) 03/03/17 05:57 Random Glucose 141 mg/dL (74-106) H D 03/02/17 13:17 Calcium 9.2 mg/dL (8.5-10.1) 03/02/17 13:17 Total Bilirubin 0.4 mg/dL (0.2-1.0) D 03/02/17 13:17 AST 17 U/L (15-37) 03/02/17 13:17 ALT 23 U/L (12-78) 03/02/17 13:17 Alkaline Phosphatase 131 U/L (45-117) H 03/02/17 13:17 Creatine Kinase 42 IU/L (26-192) 03/02/17 13:17 Troponin I < 0.02 ng/ml (0.00-0.05) 03/02/17 13:17 Total Protein 7.8 g/dl (6.4-8.2) 03/02/17 13:17 Albumin 3.7 g/dl (3.4-5.0) 03/02/17 13:17 Triglycerides 108 mg/dL (35-160) 03/02/17 13:17 Cholesterol 289 mg/dL (50-200) H 03/02/17 13:17 Total LDL Cholesterol 151 mg/dL (5-100) H 03/02/17 13:17 HDL Cholesterol 118 mg/dL (40-60) H D 03/02/17 13:17 Urine Color Yellow 03/02/17 17:05 Urine Appearance Cloudy 03/02/17 17:05 Urine pH 5.0 (5.0-8.0) 03/02/17 17:05 Ur Specific Alderson 1.010 (1.005-1.025) 03/02/17 17:05 Urine Protein Negative (NEGATIVE) 03/02/17 17:05 Urine Glucose (UA) Negative (NEGATIVE) 03/02/17 17:05 Urine Ketones Negative (NEGATIVE) 03/02/17 17:05 Urine Blood Negative (NEGATIVE) 03/02/17 17:05 Urine Nitrite Negative (NEGATIVE) 03/02/17 17:05 Urine Bilirubin Negative (NEGATIVE) 03/02/17 17:05 Urine Urobilinogen Negative E.U./dl (0.2-1.0) 03/02/17 17:05 Ur Leukocyte Esterase 3+ (NEGATIVE) H D 03/02/17 17:05 Urine RBC 3 /hpf (0-3) 03/02/17 17:05 Urine WBC 269 /hpf (3-5) 03/02/17 17:05 Ur Epithelial Cells Rare /hpf (FEW) 03/02/17 17:05 Urine Bacteria Few /hpf (NONE SEEN) 03/02/17 17:05 Hyaline Casts 3 /lpf 03/02/17 17:05 Urine Mucus Rare 03/02/17 17:05 Blood Type A POSITIVE 03/02/17 13:17 Antibody Screen Negative 03/02/17 13:17 ecg 03/02/17: sr, nl intervals, no ischemic changes carotids 12/2016: no sig stenosis echo 12/2016: mild lvh, nl lvef, nl rv, mild lae, mild mr/tr cxr: clear lungs tele: sr head ct: no acute findings a/p: 87 f hx htn, hld, dm, cva here with ams. ams, possible syncope: -details of all 3 recent events are unclear -recent echo and carotid done for this were unremarkable -ecg unremarkable, ce's neg x1 -neuro following, no neuro etiology identified -no suggestion of orthostatic or vagal episodes -monitor on tele 24 hours, fuentes, if benign can dc from cardiac pov with plans for outpt 30 day event monitor joanna: -cr mildly elevated, getting ivfs -would dc hctz for now -monitor cr htn: -stable, monitor on lisinopril and nifedipine. If elevated can increase nifedipine. hld: -cont statin
--- NOTE | 2017-03-03 17:27 | EKG ---
Test Reason : Blood Pressure : / mmHG Vent. Rate : 097 BPM Atrial Rate : 097 BPM P-R Int : 170 ms QRS Dur : 090 ms QT Int : 362 ms P-R-T Axes : 080 052 086 degrees QTc Int : 459 ms NORMAL SINUS RHYTHM NONSPECIFIC ST ABNORMALITY NORMAL ECG Confirmed by MD RUSTAM, REINA ([id number]) on 03/03/2017 5:27:08 PM Referred By: Confirmed By:REINA EASTON MD
--- NOTE | 2017-03-03 17:48 | CONSULT ---
Consult Consult Specialty:: Endocrinology Referred by:: Dr Sanders Reason for Consultation:: Hyperglycemia - History of Present Illness Chief Complaint: AMS History of Present Illness: This is an 87 y/o f with history of hypertension, hyperlipidemia, DM for about a year, CVA , who was admitted with altered mental status. History provided by her daughter as patient does not recall events. When her daughter entered he room at [facility], she found her lethargic and drooling in her chair. Shortly after she returned to baseline without remembering any details of event. She denies chest pain, shortness of breath, palpitation or dizziness prior to the episode. This is the third time this episode has happened, and was admitted her 12/2016 for similar. Pt referred for management of DM as daughter have concern about pt taking Glipizide. Pt was discharged on Metformin during last admission to [facility] in December which was discontinued as she started losing weight. 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 Cardio/Vascular: Yes: HTN, Hyperlipdemia Gastrointestinal: Yes: Constipation ...: No - Past Surgical History Past Surgical History: Yes: None - Alcohol/Substance Use Hx Alcohol Use: No - Smoking History Smoking history: Never smoked Have you smoked in the past 12 months: No Home Medications - Allergies Allergies/Adverse Reactions: Allergies Allergy/AdvReac Type Severity Reaction Status Date / Time tramadol Allergy Unknown Verified 03/02/17 13:17 - Home Medications Home Medications: Ambulatory Orders Aspirin [ASA -] 81 mg PO DAILY 12/24/16 Lisinopril 20 mg PO HS 12/24/16 Cholecalciferol (Vitamin D3) [Vitamin D3] 400 unit PO DAILY 03/02/17 Diphenhydramine HCl [Benadryl -] 25 mg PO Q6H PRN 03/02/17 Docusate Sodium [Colace -] 300 mg PO HS 03/02/17 Glipizide [Glipizide ER] 2.5 mg PO DAILY 03/02/17 Heparin Sodium,Porcine/Pf [Heparin Sod 5,000 Unit/ 0.5 ml] 5,000 unit IM BID Hydrochlorothiazide 25 mg PO DAILY 03/02/17 Lactulose [Cephulac -] 10 gm PO PRN 03/02/17 Nifedipine [Procardia Xl] 60 mg PO DAILY 03/02/17 Ondansetron [Zofran -] 4 mg PO BID PRN 03/02/17 Vitamin B Comp W-C [Nephro-Valentín -] 1 tablet PO DAILY 03/02/17 Family Disease History - Family Disease History Family Disease History: Diabetes: Son, Daughter Review of Systems - Review of Systems Constitutional: reports: No Symptoms Eyes: reports: No Symptoms HENT: reports: No Symptoms Neck: reports: No Symptoms Cardiovascular: reports: No Symptoms Respiratory: reports: No Symptoms Breasts: reports: No Symptoms Reported Musculoskeletal: reports: No Symptoms Neurological: reports: No Symptoms Endocrine: reports: No Symptoms Hematology/Lymphatic: reports: No Symptoms Physical Exam Vital Signs: Vital Signs Temperature 98.6 F 03/03/17 14:20 Pulse Rate 92 H 03/03/17 14:20 Respiratory Rate 20 03/03/17 14:20 Blood Pressure 114/60 03/03/17 14:20 O2 Sat by Pulse Oximetry (%) 96 03/02/17 21:25 Constitutional: Yes: No Distress, Calm Eyes: Yes: Conjunctiva Clear, EOM Intact HENT: Yes: Atraumatic, Normocephalic Neck: Yes: Supple, Trachea Midline Cardiovascular: Yes: Regular Rate and Rhythm Respiratory: Yes: Regular, CTA Bilaterally Gastrointestinal: Yes: Normal Bowel Sounds, Soft Edema: No Neurological: Yes: Alert Imaging - Results Chest X-ray: Report Reviewed Cat Scan: Report Reviewed Assessment/Plan AP; AMS ? Syncope DM HTN HLD H/O CVA Will monitor BGM off Glipizide Off Metformin b/o Wt loss Will consider DPP4 or repaglinide if the blood sugar rises off medication BGM QACHS Novolog SS coverage of BGM >200 HBAic Discussed with daughters the management of DM. Will f/u
[2017-03-03] MEDS: LISINOPRIL 20 MG TABLET (FP) PO SCH (21:57)
[2017-03-03] MEDS: DOCUSATE SODIUM 100 MG CAPSULE (FP) PO SCH (21:57)
[2017-03-03] MEDS: ATORVASTATIN CA 20 MG TABLET (FP) PO SCH (21:57)
[2017-03-03] MEDS: INSULIN SLIDING SCALE (NOVOLOG) 1 VIAL SQ SCH (22:07)
[2017-03-04] MEDS: INSULIN SLIDING SCALE (NOVOLOG) 1 VIAL SQ SCH ×4 (06:07→21:53)
[2017-03-04 07:37] LABS: BASOPHIL 0.9 % (0-2.0); EOSINOPHIL 4.2 % (0-4.5); MCH 31.1 pg (25.7-33.7); MCHC 34.1 g/dl (32.0-36.0); MEAN CELL VOLUME 91.1 fl (80-96); NEUTROPHILS 55.4 % (42.8-82.8); PLATELET COUNT 261 K/MM3 (134-434); WHITE BLOOD COUNT 6.6 K/mm3 (4.0-10.0)
[2017-03-04 08:17] LABS: ALBUMIN 3.1 g/dl (3.4-5.0); ANION GAP 11 (8-16); CALCIUM 8.8 mg/dL (8.5-10.1); CO2 26 mmol/L (21-32); CREATININE 0.8 mg/dL (0.55-1.02); GLUCOSE,RANDOM 106 mg/dL (74-106); SGOT/AST 14 U/L (15-37); SGPT/ALT 19 U/L (12-78)
[2017-03-04 08:20] LABS: ALK PHOS 105 U/L (45-117); BILIRUBIN,TOTAL 0.4 mg/dL (0.2-1.0); TOT PROT 6.4 g/dl (6.4-8.2)
--- NOTE | 2017-03-04 08:47 | PN ---
Progress Note, Physician Chief Complaint: syncope History of Present Illness: no dizzy or syncope/acute MS changes no cp, sob, palpit - Current Medication List Current Medications: Active Medications Aspirin (Ecotrin -) 81 mg PO DAILY [facility] Last Admin: 03/03/17 09:59 Dose: 81 mg Atorvastatin Calcium (Lipitor -) 20 mg PO HS [facility] Last Admin: 03/03/17 21:57 Dose: 20 mg Cholecalciferol (Vitamin D3 -) 400 unit PO DAILY [facility] Last Admin: 03/03/17 10:00 Dose: 400 unit Docusate Sodium (Colace -) 300 mg PO HS [facility] Last Admin: 03/03/17 21:57 Dose: 300 mg Heparin Sodium (Porcine) (Heparin -) 5,000 unit SQ BID [facility] Last Admin: 03/03/17 21:57 Dose: 5,000 unit Insulin Aspart (Novolog Vial Sliding Scale -) 1 vial SQ ACHS [facility] PRN Reason: Protocol Last Admin: 03/04/17 06:07 Dose: Not Given Lisinopril (Prinivil) 20 mg PO [facility] Last Admin: 03/03/17 21:57 Dose: 20 mg Multivit/Ca Carb/B Cmplx/FA/Prenat (Nephro-Valentín -) 1 tablet PO DAILY [facility] Last Admin: 03/03/17 09:59 Dose: 1 tablet Nifedipine (Procardia Xl -) 60 mg PO DAILY [facility] Last Admin: 03/03/17 10:00 Dose: 60 mg - Objective Vital Signs: Vital Signs Temperature 98.2 F 03/04/17 06:03 Pulse Rate 88 03/04/17 06:03 Respiratory Rate 20 03/04/17 06:03 Blood Pressure 158/76 03/04/17 06:03 O2 Sat by Pulse Oximetry (%) 96 03/03/17 21:00 Constitutional: Yes: Well Nourished, No Distress, Calm Cardiovascular: Yes: Regular Rate and Rhythm, S1, S2. No: Gallop, Murmur Respiratory: Yes: Regular, CTA Bilaterally. No: Accessory Muscle Use, Rales, Wheezes Extremities: No: Cold Edema: No Neurological: Yes: Alert. No: Seizure Psychiatric: No: Agitated Labs: CBC, BMP 03/04/17 05:35 03/04/17 05:35 INR, PTT INR 0.99 (0.82-1.09) 03/02/17 13:17 - ....Imaging EKG: Other (tele: NSR, no sara's) Assessment/Plan ecg 03/02/17: sr, nl intervals, no ischemic changes carotids 12/2016: no sig stenosis echo 12/2016: mild lvh, nl lvef, nl rv, mild lae, mild mr/tr cxr: clear lungs head ct: no acute findings a/p: 87 f hx htn, hld, dm, cva here with ams. ams, possible syncope: -details of all 3 recent events are unclear -recent echo and carotid done for this were unremarkable -ecg unremarkable, ce's neg x1 -neuro following--doubts sz (ordered EEG), doubts TIA -? transient hypotension causing syncope (e.g. postprandial hypotension of elderly, though timing of events vis-a-vis meals is unknown) -hypotension not highly likely as the etiology here, given dtr (RN) states the first episode was in SNF and BP checked within few min of event and was normal ( unless hypotension resolved very promptly) -on potent vasodilator (nifedipine 60m) plus VIVIANA--consider outpt bp monitoring or 24 ABPM if she can tolerate this (? with family assistance) -? hypoglycemia--glucose monitoring per pmd (dtr is RN, pt is in SNF--closely monitored -stop thiazide permanently -ecg no ischemia, trop neg x 2 -monitor on tele 24 hours -if no etiol found, will plan outpt 30 day event monitor joanna: -prerenal azotemia, resolved with IVF -agree with dc hctz permanently -monitor cr htn: -stable, monitor on lisinopril and nifedipine. -cautious with uptitration, until transient hypotensive episodes can be ruled out as outpt -would tolerate systolic BPs to 160s here, at least for the time being, until BP trend can be better understood--revisit this as outpt s/p recent CVA: -here 12/19 s/p fall, developed L hemiparesis--seen by neuro, CT head neg, family declined aggressive w/u then per notes--tx'd with ASA/statin only -cont same meds OK FOR D/C FROM [facility] P.O.V.
[2017-03-04] MEDS: NIFEdipine E.R 60 MG TABLET (UD) PO SCH (10:12)
[2017-03-04] MEDS: VITAMIN B COMP W-C 1 EA TABLET PO SCH (10:12)
[2017-03-04] MEDS: ASPIRIN COATED 81 MG TABLET.EC PO SCH (10:12)
[2017-03-04] MEDS: HEPARIN NA (PORCINE) 5,000 UNITS/ML 1ML VIAL SQ SCH ×2 (10:13→21:52)
[2017-03-04] MEDS: CHOLECALCIFEROL (VITAMIN D3) 400 UNIT TABLET (FP) PO SCH (10:13)
[2017-03-04 10:15] LABS: TROPONIN I < 0.02 ng/ml (0.00-0.05)
--- NOTE | 2017-03-04 11:48 | PN ---
Progress Note (short form) - Note Progress Note: Denies any complaints BGM stable off meds Vital Signs Period Temp Pulse Resp BP Sys/Horne Pulse Ox Last 24 Hr 98.0 F-99.0 F 78-92 18-20 114-174/60-76 96 PE: AOx3 Neck: Supple, No JVD HEENT: EOMI Lungs: CTA CVS: S1S2 Abd: Bening Ext: No edema Neuro: No focal deficit CMP Sodium 135 mmol/L (136-145) L 03/04/17 05:35 Potassium 4.3 mmol/L (3.5-5.1) 03/04/17 05:35 Chloride 98 mmol/L (98-107) 03/04/17 05:35 Carbon Dioxide 26 mmol/L (21-32) 03/04/17 05:35 Anion Gap 11 (8-16) 03/04/17 05:35 BUN 29 mg/dL (7-18) H D 03/04/17 05:35 Creatinine 0.8 mg/dL (0.55-1.02) D 03/04/17 05:35 Creat Clearance w eGFR > 60 (>60) 03/04/17 05:35 POC Glucometer 115 UNITS (()) 03/04/17 05:58 Random Glucose 106 mg/dL (74-106) D 03/04/17 05:35 Hemoglobin A1c % 7.4 % (4.8-6.0) H D 03/04/17 05:35 Calcium 8.8 mg/dL (8.5-10.1) 03/04/17 05:35 Total Bilirubin 0.4 mg/dL (0.2-1.0) 03/04/17 05:35 AST 14 U/L (15-37) L 03/04/17 05:35 ALT 19 U/L (12-78) 03/04/17 05:35 Alkaline Phosphatase 105 U/L (45-117) 03/04/17 05:35 Creatine Kinase 31 IU/L (26-192) 03/04/17 05:35 Troponin I < 0.02 ng/ml (0.00-0.05) 03/04/17 05:35 Total Protein 6.4 g/dl (6.4-8.2) 03/04/17 05:35 Albumin 3.1 g/dl (3.4-5.0) L 03/04/17 05:35 Triglycerides 108 mg/dL (35-160) 03/02/17 13:17 Cholesterol 289 mg/dL (50-200) H 03/02/17 13:17 Total LDL Cholesterol 151 mg/dL (5-100) H 03/02/17 13:17 HDL Cholesterol 118 mg/dL (40-60) H D 03/02/17 13:17 Current Medications Generic Name Dose Route Start Last Admin Trade Name Clarisa PRN Reason Stop Dose Admin Aspirin 81 mg 03/03/17 10:00 03/04/17 10:12 Ecotrin - PO 81 mg DAILY KATIE Administration Atorvastatin Calcium 20 mg 03/03/17 22:00 03/03/17 21:57 Lipitor - PO 20 mg HS KATIE Administration Cholecalciferol 400 unit 03/03/17 10:00 03/04/17 10:13 Vitamin D3 - PO 400 unit DAILY KATIE Administration Docusate Sodium 300 mg 03/02/17 22:00 03/03/17 21:57 Colace - PO 300 mg HS KATIE Administration Heparin Sodium (Porcine) 5,000 unit 03/02/17 22:00 03/04/17 10:13 Heparin - SQ 5,000 unit BID KATIE Administration Insulin Aspart 1 vial 03/03/17 22:00 03/04/17 06:07 Novolog Vial Sliding Scale - SQ Not Given ACHS [facility] Protocol Lisinopril 20 mg 03/02/17 22:00 03/03/17 21:57 Prinivil PO 20 mg HS KATIE Administration Multivit/Ca Carb/B Cmplx/FA/Prenat 1 tablet 03/03/17 10:00 03/04/17 10:12 Nephro-Valentín - PO 1 tablet DAILY KATIE Administration Nifedipine 60 mg 03/03/17 10:00 03/04/17 10:12 Procardia Xl - PO 60 mg DAILY KATIE Administration AP; AMS ? Syncope DM HTN HLD H/O CVA A1c 7.4 Continue to monitor BGM off Glipizide Off Metformin b/o Wt loss Will consider DPP4 or repaglinide if the blood sugar rises off medication. Same discussed with patient and daughter at bedside. BGM QACHS Novolog SS coverage of BGM >200 Will f/u
--- NOTE | 2017-03-04 16:10 | PN ---
Progress Note (short form) - Note Progress Note: No complaints and feels well Is awaiting a bed in SNF for possible discharge O/E Vital Signs Period Temp Pulse Resp BP Sys/Horne Pulse Ox Last 24 Hr 98.0 F-99.0 F 78-92 18-20 139-174/52-76 96-98 Heart regular Lungs clear Abd osft Ext no edema Current Medications Aspirin (Ecotrin -) 81 mg PO DAILY [facility] Last Admin: 03/04/17 10:12 Dose: 81 mg Atorvastatin Calcium (Lipitor -) 20 mg PO HS [facility] Last Admin: 03/03/17 21:57 Dose: 20 mg Cholecalciferol (Vitamin D3 -) 400 unit PO DAILY [facility] Last Admin: 03/04/17 10:13 Dose: 400 unit Docusate Sodium (Colace -) 300 mg PO HS [facility] Last Admin: 03/03/17 21:57 Dose: 300 mg Heparin Sodium (Porcine) (Heparin -) 5,000 unit SQ BID [facility] Last Admin: 03/04/17 10:13 Dose: 5,000 unit Insulin Aspart (Novolog Vial Sliding Scale -) 1 vial SQ ACHS [facility] PRN Reason: Protocol Last Admin: 03/04/17 12:00 Dose: Not Given Lisinopril (Prinivil) 20 mg PO HS [facility] Last Admin: 03/03/17 21:57 Dose: 20 mg Multivit/Ca Carb/B Cmplx/FA/Prenat (Nephro-Valentín -) 1 tablet PO DAILY [facility] Last Admin: 03/04/17 10:12 Dose: 1 tablet Nifedipine (Procardia Xl -) 60 mg PO DAILY [facility] Last Admin: 03/04/17 10:12 Dose: 60 mg Laboratory Results - last 24 hr 03/03/17 03/04/17 03/04/17 22:05 05:35 05:35 WBC 6.6 D RBC 3.47 L Hgb 10.8 Hct 31.6 L MCV 91.1 MCHC 34.1 RDW 14.0 Plt Count 261 MPV 8.0 Neutrophils % 55.4 D Lymphocytes % 30.0 D Monocytes % 9.5 Eosinophils % 4.2 D Basophils % 0.9 Sodium 135 L Potassium 4.3 Chloride 98 Carbon Dioxide 26 Anion Gap 11 BUN 29 H D Creatinine 0.8 D Creat Clearance w eGFR > 60 POC Glucometer 112 Random Glucose 106 D Hemoglobin A1c % Calcium 8.8 Total Bilirubin 0.4 AST 14 L ALT 19 Alkaline Phosphatase 105 Creatine Kinase 31 Troponin I < 0.02 Total Protein 6.4 Albumin 3.1 L 03/04/17 03/04/17 03/04/17 05:35 05:58 08:40 WBC RBC Hgb Hct MCV MCHC RDW Plt Count MPV Neutrophils % Lymphocytes % Monocytes % Eosinophils % Basophils % Sodium Potassium Chloride Carbon Dioxide Anion Gap BUN Creatinine Creat Clearance w eGFR POC Glucometer 115 Random Glucose Hemoglobin A1c % 7.4 H D Calcium Total Bilirubin AST ALT Alkaline Phosphatase Creatine Kinase Cancelled Troponin I Cancelled Total Protein Albumin 03/04/17 11:56 WBC RBC Hgb Hct MCV MCHC RDW Plt Count MPV Neutrophils % Lymphocytes % Monocytes % Eosinophils % Basophils % Sodium Potassium Chloride Carbon Dioxide Anion Gap BUN Creatinine Creat Clearance w eGFR POC Glucometer 121 Random Glucose Hemoglobin A1c % Calcium Total Bilirubin AST ALT Alkaline Phosphatase Creatine Kinase Troponin I Total Protein Albumin A&P Problems (1) Syncope Assessment/Plan: Three episodes in recent past. Etiology is not clear Arrythmia is a possibility d/c planing Tele Monitoring. Code(s): R55 - SYNCOPE AND COLLAPSE (2) Transient alteration of awareness Assessment/Plan: As above Code(s): R40.4 - TRANSIENT ALTERATION OF AWARENESS (3) Hypertension Assessment/Plan: Controlled Code(s): I10 - ESSENTIAL (PRIMARY) HYPERTENSION (4) Hyperlipidemia Assessment/Plan: Would advise no treatment at this age. Will discuss with family Code(s): E78.5 - HYPERLIPIDEMIA, UNSPECIFIED (5) Stroke Assessment/Plan: Continue aspirin. Code(s): I63.9 - CEREBRAL INFARCTION, UNSPECIFIED (6) Diabetes mellitus Assessment/Plan: BGMs/ISS Continue glipizide xl 2.5 mg daily. Endorinologist consulted because family thinks hypoglycemia is the reason for her ams. Code(s): E11.9 - TYPE 2 DIABETES MELLITUS WITHOUT COMPLICATIONS Qualifiers: Diabetes mellitus type: type 2 (7) Acute renal failure (ARF) Assessment/Plan: Hydrochlorthiazide discontinued. Continue gentle hydration. Code(s): N17.9 - ACUTE KIDNEY FAILURE, UNSPECIFIED
[2017-03-04] MEDS: DOCUSATE SODIUM 100 MG CAPSULE (FP) PO SCH (21:52)
[2017-03-04] MEDS: LISINOPRIL 20 MG TABLET (FP) PO SCH (21:52)
[2017-03-04] MEDS: ATORVASTATIN CA 20 MG TABLET (FP) PO SCH (21:52)
[2017-03-05] MEDS: INSULIN SLIDING SCALE (NOVOLOG) 1 VIAL SQ SCH ×3 (06:39→22:29)
[2017-03-05] MEDS: VITAMIN B COMP W-C 1 EA TABLET PO SCH (09:13)
[2017-03-05] MEDS: ASPIRIN COATED 81 MG TABLET.EC PO SCH (09:13)
[2017-03-05] MEDS: NIFEdipine E.R 60 MG TABLET (UD) PO SCH (09:13)
[2017-03-05] MEDS: HEPARIN NA (PORCINE) 5,000 UNITS/ML 1ML VIAL SQ SCH ×2 (09:14→22:30)
[2017-03-05] MEDS: CHOLECALCIFEROL (VITAMIN D3) 400 UNIT TABLET (FP) PO SCH (09:14)
--- NOTE | 2017-03-05 11:33 | PN ---
Progress Note, Physician Chief Complaint: syncope History of Present Illness: no dizzy/syncope no cp, sob, palpit - Current Medication List Current Medications: Active Medications Aspirin (Ecotrin -) 81 mg PO DAILY [facility] Last Admin: 03/05/17 09:13 Dose: 81 mg Atorvastatin Calcium (Lipitor -) 20 mg PO HS [facility] Last Admin: 03/04/17 21:52 Dose: 20 mg Cholecalciferol (Vitamin D3 -) 400 unit PO DAILY [facility] Last Admin: 03/05/17 09:14 Dose: 400 unit Docusate Sodium (Colace -) 300 mg PO HS [facility] Last Admin: 03/04/17 21:52 Dose: 300 mg Heparin Sodium (Porcine) (Heparin -) 5,000 unit SQ BID [facility] Last Admin: 03/05/17 09:14 Dose: 5,000 unit Insulin Aspart (Novolog Vial Sliding Scale -) 1 vial SQ [facility] PRN Reason: Protocol Last Admin: 03/05/17 06:39 Dose: Not Given Lisinopril (Prinivil) 20 mg PO [facility] Last Admin: 03/04/17 21:52 Dose: 20 mg Multivit/Ca Carb/B Cmplx/FA/Prenat (Nephro-Valentín -) 1 tablet PO DAILY [facility] Last Admin: 03/05/17 09:13 Dose: 1 tablet Nifedipine (Procardia Xl -) 60 mg PO DAILY [facility] Last Admin: 03/05/17 09:13 Dose: 60 mg - Objective Vital Signs: Vital Signs Temperature 98 F 03/05/17 06:42 Pulse Rate 84 03/05/17 06:42 Respiratory Rate 18 03/05/17 06:42 Blood Pressure 180/70 03/05/17 06:42 O2 Sat by Pulse Oximetry (%) 96 03/04/17 21:00 Constitutional: Yes: Well Nourished, No Distress, Calm Cardiovascular: Yes: Regular Rate and Rhythm, S1, S2. No: Gallop, Murmur Respiratory: Yes: Regular, CTA Bilaterally. No: Accessory Muscle Use, Rales, Wheezes Extremities: No: Cold Edema: No Neurological: Yes: Alert, Oriented Psychiatric: No: Agitated Labs: CBC, BMP 03/04/17 05:35 03/04/17 05:35 INR, PTT INR 0.99 (0.82-1.09) 03/02/17 13:17 - ....Imaging EKG: Other (tele: NSR, no sara) Assessment/Plan ecg 03/02/17: sr, nl intervals, no ischemic changes carotids 12/2016: no sig stenosis echo 12/2016: mild lvh, nl lvef, nl rv, mild lae, mild mr/tr cxr: clear lungs head ct: no acute findings a/p: 87 f hx htn, hld, dm, cva here with ams. ams, possible syncope: -details of all 3 recent events are unclear -recent echo and carotid done for this were unremarkable -ecg unremarkable, ce's neg x1 -neuro following--doubts sz (ordered EEG), doubts TIA -? transient hypotension causing syncope (e.g. postprandial hypotension of elderly, though timing of events vis-a-vis meals is unknown) -hypotension not highly likely as the etiology here, given dtr (RN) states the first episode was in SNF and BP checked within few min of event and was normal ( unless hypotension resolved very promptly) -on potent vasodilator (nifedipine 60m) plus VIVIANA--consider outpt bp monitoring or 24 ABPM if she can tolerate this (? with family assistance) -? hypoglycemia--glucose monitoring per pmd (dtr is RN, pt is in SNF--closely monitored -stop thiazide permanently -ecg no ischemia, trop neg x 2 -tele benign--cont monitor while pt in hospital -if no etiol found, will plan outpt 30 day event monitor joanna: -prerenal azotemia, resolved with IVF -agree with dc hctz permanently -monitor cr htn: -stable, monitor on lisinopril and nifedipine. -cautious with uptitration, until transient hypotensive episodes can be ruled out as outpt -bp up 180s early AM today--monitor bp trend -would tolerate systolic BPs to 160s here, at least for the time being, until BP trend can be better understood--revisit this as outpt s/p recent CVA: -here 12/19 s/p fall, developed L hemiparesis--seen by neuro, CT head neg, family declined aggressive w/u then per notes--tx'd with ASA/statin only -cont same meds OK FOR D/C FROM [facility] P.O.V. (awaiting SNF bed)
--- NOTE | 2017-03-05 12:52 | PN ---
Progress Note (short form) - Note Progress Note: No new events O/E Vital Signs Period Temp Pulse Resp BP Sys/Horne Pulse Ox Last 24 Hr 97.6 F-99.1 F 80-92 18-20 132-187/52-81 96 Current Medications Aspirin (Ecotrin -) 81 mg PO DAILY [facility] Last Admin: 03/05/17 09:13 Dose: 81 mg Atorvastatin Calcium (Lipitor -) 20 mg PO HS [facility] Last Admin: 03/04/17 21:52 Dose: 20 mg Cholecalciferol (Vitamin D3 -) 400 unit PO DAILY [facility] Last Admin: 03/05/17 09:14 Dose: 400 unit Docusate Sodium (Colace -) 300 mg PO HS [facility] Last Admin: 03/04/17 21:52 Dose: 300 mg Heparin Sodium (Porcine) (Heparin -) 5,000 unit SQ BID [facility] Last Admin: 03/05/17 09:14 Dose: 5,000 unit Insulin Aspart (Novolog Vial Sliding Scale -) 1 vial SQ ACHS [facility] PRN Reason: Protocol Last Admin: 03/05/17 11:56 Dose: Not Given Lisinopril (Prinivil) 20 mg PO HS [facility] Last Admin: 03/04/17 21:52 Dose: 20 mg Multivit/Ca Carb/B Cmplx/FA/Prenat (Nephro-Valentín -) 1 tablet PO DAILY [facility] Last Admin: 03/05/17 09:13 Dose: 1 tablet Nifedipine (Procardia Xl -) 60 mg PO DAILY [facility] Last Admin: 03/05/17 09:13 Dose: 60 mg Laboratory Results - last 24 hr 03/04/17 03/04/17 03/05/17 17:34 21:06 06:38 POC Glucometer 131 180 125 03/05/17 11:48 POC Glucometer 115 (1) Syncope Assessment/Plan: Awaiting placement in SNF Code(s): R55 - SYNCOPE AND COLLAPSE (2) Transient alteration of awareness Assessment/Plan: As above Code(s): R40.4 - TRANSIENT ALTERATION OF AWARENESS (3) Hypertension Assessment/Plan: Controlled Code(s): I10 - ESSENTIAL (PRIMARY) HYPERTENSION (4) Hyperlipidemia Assessment/Plan: Would advise no treatment at this age. Will discuss with family Code(s): E78.5 - HYPERLIPIDEMIA, UNSPECIFIED (5) Stroke Assessment/Plan: Continue aspirin. Code(s): I63.9 - CEREBRAL INFARCTION, UNSPECIFIED (6) Diabetes mellitus Assessment/Plan: BGMs/ISS Continue glipizide xl 2.5 mg daily. Endorinologist consulted because family thinks hypoglycemia is the reason for her ams. Code(s): E11.9 - TYPE 2 DIABETES MELLITUS WITHOUT COMPLICATIONS Qualifiers: Diabetes mellitus type: type 2 (7) Acute renal failure (ARF) Assessment/Plan: Hydrochlorthiazide discontinued. Continue gentle hydration. Code(s): N17.9 - ACUTE KIDNEY FAILURE, UNSPECIFIED
[2017-03-05] MEDS: DOCUSATE SODIUM 100 MG CAPSULE (FP) PO SCH (22:29)
[2017-03-05] MEDS: ATORVASTATIN CA 20 MG TABLET (FP) PO SCH (22:29)
[2017-03-05] MEDS: LISINOPRIL 20 MG TABLET (FP) PO SCH (22:30)
--- NOTE | 2017-03-06 08:39 | PN ---
Progress Note, Physician Chief Complaint: syncope History of Present Illness: no cp, sob, palpitations, presyncope/syncope - Current Medication List Current Medications: Active Medications Aspirin (Ecotrin -) 81 mg PO DAILY [facility] Last Admin: 03/05/17 09:13 Dose: 81 mg Atorvastatin Calcium (Lipitor -) 20 mg PO HS [facility] Last Admin: 03/05/17 22:29 Dose: 20 mg Cholecalciferol (Vitamin D3 -) 400 unit PO DAILY [facility] Last Admin: 03/05/17 09:14 Dose: 400 unit Docusate Sodium (Colace -) 300 mg PO HS [facility] Last Admin: 03/05/17 22:29 Dose: 300 mg Heparin Sodium (Porcine) (Heparin -) 5,000 unit SQ BID [facility] Last Admin: 03/05/17 22:30 Dose: 5,000 unit Insulin Aspart (Novolog Vial Sliding Scale -) 1 vial SQ [facility] PRN Reason: Protocol Last Admin: 03/05/17 22:29 Dose: Not Given Lisinopril (Prinivil) [address] [facility] Last Admin: 03/05/17 22:30 Dose: 20 mg Multivit/Ca Carb/B Cmplx/FA/Prenat (Nephro-Valentín -) 1 tablet PO DAILY [facility] Last Admin: 03/05/17 09:13 Dose: 1 tablet Nifedipine (Procardia Xl -) 60 mg PO DAILY [facility] Last Admin: 03/05/17 09:13 Dose: 60 mg - Objective Vital Signs: Vital Signs Temperature 98.4 F 03/06/17 06:00 Pulse Rate 82 03/06/17 06:00 Respiratory Rate 20 03/06/17 06:00 Blood Pressure 157/70 03/06/17 06:00 O2 Sat by Pulse Oximetry (%) 97 03/05/17 21:00 Constitutional: Yes: Well Nourished, No Distress, Calm Cardiovascular: Yes: Regular Rate and Rhythm, S1, S2. No: Gallop, Murmur Respiratory: Yes: Regular, CTA Bilaterally. No: Accessory Muscle Use, Rales, Wheezes Extremities: No: Cold Edema: No Neurological: Yes: Alert, Oriented Psychiatric: No: Agitated Labs: CBC, BMP 03/04/17 05:35 03/04/17 05:35 INR, PTT INR 0.99 (0.82-1.09) 03/02/17 13:17 - ....Imaging EKG: Other (tele: NSR, no events) Assessment/Plan ecg 03/02/17: sr, nl intervals, no ischemic changes carotids 12/2016: no sig stenosis echo 12/2016: mild lvh, nl lvef, nl rv, mild lae, mild mr/tr cxr: clear lungs head ct: no acute findings a/p: 87 f hx htn, hld, dm, cva here with ams. ams, possible syncope: -details of all 3 recent events are unclear -recent echo and carotid done for this were unremarkable -ecg unremarkable, ce's neg x1 -neuro following--doubts sz (ordered EEG), doubts TIA -? transient hypotension causing syncope (e.g. postprandial hypotension of elderly, though timing of events vis-a-vis meals is unknown) -hypotension not highly likely as the etiology here, given dtr (RN) states the first episode was in SNF and BP checked within few min of event and was normal ( unless hypotension resolved very promptly) -on potent vasodilator (nifedipine 60m) plus VIVIANA--consider outpt bp monitoring or 24 ABPM if she can tolerate this (? with family assistance) -? hypoglycemia--glucose monitoring per pmd (dtr is RN, pt is in SNF--closely monitored -stop thiazide permanently -ecg no ischemia, trop neg x 2 -tele benign--cont monitor while pt in hospital -if no etiol found, will plan outpt 30 day event monitor joanna: -prerenal azotemia, resolved with IVF -agree with dc hctz permanently -monitor cr htn: -stable, monitor on lisinopril and nifedipine. -cautious with uptitration, until transient hypotensive episodes can be ruled out as outpt -bp up 180s early AM today--monitor bp trend -would tolerate systolic BPs to 160s here, at least for the time being, until BP trend can be better understood--revisit this as outpt s/p recent CVA: -here 12/19 s/p fall, developed L hemiparesis--seen by neuro, CT head neg, family declined aggressive w/u then per notes--tx'd with ASA/statin only -cont same meds OK FOR D/C FROM [facility] P.O.V. (awaiting SNF bed)
[2017-03-06] MEDS: NIFEdipine E.R 60 MG TABLET (UD) PO SCH (09:20)
[2017-03-06] MEDS: VITAMIN B COMP W-C 1 EA TABLET PO SCH (09:20)
[2017-03-06] MEDS: ASPIRIN COATED 81 MG TABLET.EC PO SCH (09:21)
[2017-03-06] MEDS: CHOLECALCIFEROL (VITAMIN D3) 400 UNIT TABLET (FP) PO SCH (09:21)
[2017-03-06] MEDS: HEPARIN NA (PORCINE) 5,000 UNITS/ML 1ML VIAL SQ SCH ×2 (09:21→22:06)
--- NOTE | 2017-03-06 11:09 | PN ---
Progress Note (short form) - Note Progress Note: Denies chest pain, shortness of breath, palpitation or dizziness. No further syncopal episode. For EEG today. Awaiting bed at [facility] 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 [employer]: Yes: Dementia Cardiovascular: Yes: HTN, Hyperlipdemia Gastrointestinal: Yes: Constipation ...: No - Past Surgical History Past Surgical History: Yes: None - Smoking History Smoking history: Never smoked Have you smoked in the past 12 months: No - Alcohol/Substance Use Hx Alcohol Use: No Home Medications - Allergies Allergies/Adverse Reactions: Allergies Allergy/AdvReac Type Severity Reaction Status Date / Time tramadol Allergy Unknown Verified 03/02/17 13:17 - Home Medications Home Medications: Ambulatory Orders Aspirin [ASA -] 81 mg PO DAILY 12/24/16 Lisinopril 20 mg PO HS 12/24/16 Cholecalciferol (Vitamin D3) [Vitamin D3] 400 unit PO DAILY 03/02/17 Diphenhydramine HCl [Benadryl -] 25 mg PO Q6H PRN 03/02/17 Docusate Sodium [Colace -] 300 mg PO HS 03/02/17 Glipizide [Glipizide ER] 2.5 mg PO DAILY 03/02/17 Heparin Sodium,Porcine/Pf [Heparin Sod 5,000 Unit/ 0.5 ml] 5,000 unit IM BID Hydrochlorothiazide 25 mg PO DAILY 03/02/17 Lactulose [Cephulac -] 10 gm PO PRN 03/02/17 Nifedipine [Procardia Xl] 60 mg PO DAILY 03/02/17 Ondansetron [Zofran -] 4 mg PO BID PRN 03/02/17 Vitamin B Comp W-C [Nephro-Valentín -] 1 tablet PO DAILY 03/02/17 Review of Systems - Review of Systems Constitutional: reports: Lethargy Eyes: reports: No Symptoms HENT: reports: No Symptoms Neck: reports: No Symptoms Cardiovascular: reports: No Symptoms Respiratory: reports: No Symptoms Gastrointestinal: reports: No Symptoms Genitourinary: reports: No Symptoms Musculoskeletal: reports: No Symptoms Integumentary: reports: No Symptoms Neurological: reports: No Symptoms Endocrine: reports: No Symptoms Hematology/Lymphatic: reports: No Symptoms Psychiatric: reports: No Symptoms Physical Examination Vital Signs: Vital Signs Period Temp Pulse Resp BP Sys/Horne Pulse Ox Last 24 Hr 97.2 F-98.8 F 82-101 18-20 142-172/61-82 96-97 Constitutional: Yes: No Distress, Anxious Eyes: Yes: Conjunctiva Clear, EOM Intact, PERRL HENT: Yes: Atraumatic, Normocephalic Neck: Yes: Supple, Trachea Midline Cardiovascular: Yes: WNL, Regular Rate and Rhythm Respiratory: Yes: Regular, CTA Bilaterally Gastrointestinal: Yes: Normal Bowel Sounds, Soft ...Rectal Exam: Yes: Deferred Musculoskeletal: Yes: WNL Extremities: Yes: WNL Edema: No Peripheral Pulses WNL: Yes Neurological: Yes: Alert, Oriented ...Motor Strength: WNL Psychiatric: Yes: Alert, Oriented Imaging - Results Chest X-ray: Report Reviewed Cat Scan: Report Reviewed Problem List - Problems (1) Syncope Assessment/Plan: None since admission Three episodes in recent past. Neurology and cardiology follow up appreciated. Recommendations noted. Continue aspirin. Stable for discharge Code(s): R55 - SYNCOPE AND COLLAPSE (2) Transient alteration of awareness Assessment/Plan: Neurology and cardiology follow up[ appreciated. Code(s): R40.4 - TRANSIENT ALTERATION OF AWARENESS (3) Hypertension Assessment/Plan: Decent control. Continue procardia xl 60 mg daily and lisinopril 20 mg daily. Hctz disocntinued. Low salt diet. Code(s): I10 - ESSENTIAL (PRIMARY) HYPERTENSION (4) Hyperlipidemia Assessment/Plan: Ldl 151. Continue Atorvastatin 20 mg daily. Monitor lfts and cpk. Code(s): E78.5 - HYPERLIPIDEMIA, UNSPECIFIED (5) Stroke Assessment/Plan: Continue aspirin and statin. Code(s): I63.9 - CEREBRAL INFARCTION, UNSPECIFIED (6) Diabetes mellitus Assessment/Plan: BGMs/ISS Glipizide discontinued. Endocrinology consult appreciated. Code(s): E11.9 - TYPE 2 DIABETES MELLITUS WITHOUT COMPLICATIONS Qualifiers: Diabetes mellitus type: type 2 (7) Acute renal failure (ARF) Assessment/Plan: Resolved. Hydrochlorthiazide discontinued. Code(s): N17.9 - ACUTE KIDNEY FAILURE, UNSPECIFIED Patient is stable for discharge back to SNF. Awaiting clearance. Will have event monitor as out patient as per cardiology recommendation. Problem List - Problems (1) Syncope Code(s): R55 - SYNCOPE AND COLLAPSE (2) Transient alteration of awareness Code(s): R40.4 - TRANSIENT ALTERATION OF AWARENESS (3) Hypertension Code(s): I10 - ESSENTIAL (PRIMARY) HYPERTENSION (4) Hyperlipidemia Code(s): E78.5 - HYPERLIPIDEMIA, UNSPECIFIED (5) Stroke Code(s): I63.9 - CEREBRAL INFARCTION, UNSPECIFIED (6) Diabetes mellitus Code(s): E11.9 - TYPE 2 DIABETES MELLITUS WITHOUT COMPLICATIONS Qualifiers: Diabetes mellitus type: type 2 (7) Acute renal failure (ARF) Code(s): N17.9 - ACUTE KIDNEY FAILURE, UNSPECIFIED
[2017-03-06] MEDS: INSULIN SLIDING SCALE (NOVOLOG) 1 VIAL SQ SCH ×3 (11:47→22:07)
--- NOTE | 2017-03-06 19:27 | DS ---
Physical Examination Vital Signs: Vital Signs Temperature 97.2 F L 03/06/17 17:00 Pulse Rate 88 03/06/17 17:00 Respiratory Rate 20 03/06/17 17:00 Blood Pressure 142/62 03/06/17 17:00 O2 Sat by Pulse Oximetry (%) 96 03/06/17 08:00 Constitutional: Yes: Well Nourished, No Distress Eyes: Yes: Conjunctiva Clear, EOM Intact HENT: Yes: Atraumatic, Normocephalic Neck: Yes: Supple, Trachea Midline Cardiovascular: Yes: Regular Rate and Rhythm Respiratory: Yes: Regular, CTA Bilaterally Gastrointestinal: Yes: Normal Bowel Sounds, Soft Peripheral Pulses WNL: Yes Neurological: Yes: Alert, Oriented ...Motor Strength: WNL Labs: CBC, BMP 03/04/17 05:35 03/04/17 05:35 Discharge Summary Reason For Visit: ENCEPHALOPATHY Current Active Problems Acute renal failure (ARF) (Acute) Diabetes mellitus (Acute) Encephalopathy (Acute) Hyperlipidemia (Acute) Hypertension (Acute) Syncope (Acute) Transient alteration of awareness (Acute) Hospital Course: (1) Syncope Assessment/Plan: None since admission Three episodes in recent past. Neurology and cardiology follow up appreciated. Recommendations noted. Continue aspirin. Stable for discharge Code(s): R55 - SYNCOPE AND COLLAPSE (2) Transient alteration of awareness Assessment/Plan: Neurology and cardiology follow up[ appreciated. Code(s): R40.4 - TRANSIENT ALTERATION OF AWARENESS (3) Hypertension Assessment/Plan: Decent control. Continue procardia xl 60 mg daily and lisinopril 20 mg daily. Hctz disocntinued. Low salt diet. Code(s): I10 - ESSENTIAL (PRIMARY) HYPERTENSION (4) Hyperlipidemia Assessment/Plan: Ldl 151. Continue Atorvastatin 20 mg daily. Monitor lfts and cpk. Code(s): E78.5 - HYPERLIPIDEMIA, UNSPECIFIED (5) Stroke Assessment/Plan: Continue aspirin and statin. Code(s): I63.9 - CEREBRAL INFARCTION, UNSPECIFIED (6) Diabetes mellitus Assessment/Plan: BGMs/ISS Glipizide discontinued. Endocrinology consult appreciated. Code(s): E11.9 - TYPE 2 DIABETES MELLITUS WITHOUT COMPLICATIONS Qualifiers: Diabetes mellitus type: type 2 (7) Acute renal failure (ARF) Assessment/Plan: Resolved. Hydrochlorthiazide discontinued. Code(s): N17.9 - ACUTE KIDNEY FAILURE, UNSPECIFIED Patient is stable for discharge back to SNF. Awaiting clearance. Will have event monitor as out patient as per cardiology recommendation. Condition: Fair - Instructions Referrals: Kalyan Sanders MD [Primary Care Provider] - [facility] - Home Medications Comprehensive Discharge Medication List: Ambulatory Orders Aspirin [ASA -] 81 mg PO DAILY 12/24/16 Lisinopril 20 mg PO HS 12/24/16 Cholecalciferol (Vitamin D3) [Vitamin D3] 400 unit PO DAILY 03/02/17 Diphenhydramine HCl [Benadryl -] 25 mg PO Q6H PRN 03/02/17 Docusate Sodium [Colace -] 300 mg PO HS 03/02/17 Glipizide [Glipizide ER] 2.5 mg PO DAILY 03/02/17 Heparin Sodium,Porcine/Pf [Heparin Sod 5,000 Unit/ 0.5 ml] 5,000 unit IM BID Hydrochlorothiazide 25 mg PO DAILY 03/02/17 Lactulose [Cephulac -] 10 gm PO PRN 03/02/17 Nifedipine [Procardia Xl] 60 mg PO DAILY 03/02/17 Ondansetron [Zofran -] 4 mg PO BID PRN 03/02/17 Vitamin B Comp W-C [Nephro-Valentín -] 1 tablet PO DAILY 03/02/17
[2017-03-06] MEDS: ATORVASTATIN CA 20 MG TABLET (FP) PO SCH (22:06)
[2017-03-06] MEDS: LISINOPRIL 20 MG TABLET (FP) PO SCH (22:06)
[2017-03-06] MEDS: DOCUSATE SODIUM 100 MG CAPSULE (FP) PO SCH (22:06)
[2017-03-07] MEDS: INSULIN SLIDING SCALE (NOVOLOG) 1 VIAL SQ SCH ×4 (06:26→21:54)
--- NOTE | 2017-03-07 08:50 | PN ---
Progress Note (short form) - Note Progress Note: Patient seen and examined Chart reviewed. Currently OOB to commode. Appears alert and responsive and in no distress. No pre-syncope. Telemetry reviewed with short runs of tachycardia. Plan for discharge transfer. Selected Entries 03/06/17 03/07/17 20:08 03:22 Temperature 98.1 F Pulse Rate 85 Respiratory 20 Rate Blood Pressure 111/52 O2 Sat by Pulse 98 Oximetry (%) Oxygen Delivery Room Air Method Chest Clear Cor RRR Abd Soft nontender Ext No edema No phlebitis Neuro No new focal deficit Assesment and Plan Syncope Work-up as documented HTN Stable HPL Stable CVA Stable ARF/Pre-renal azotemia Improved Cautioned regarding further use of diuretics DM Stable Transfer when bed available
[2017-03-07] MEDS ORDERED: PT OWN MED DRAWER 7, Y5N ONE (09:44)
[2017-03-07] MEDS: NIFEdipine E.R 60 MG TABLET (UD) PO SCH (09:47)
[2017-03-07] MEDS: VITAMIN B COMP W-C 1 EA TABLET PO SCH (09:47)
[2017-03-07] MEDS: ASPIRIN COATED 81 MG TABLET.EC PO SCH (09:47)
[2017-03-07] MEDS: HEPARIN NA (PORCINE) 5,000 UNITS/ML 1ML VIAL SQ SCH ×2 (09:48→21:54)
[2017-03-07] MEDS: CHOLECALCIFEROL (VITAMIN D3) 400 UNIT TABLET (FP) PO SCH (09:48)
--- NOTE | 2017-03-07 09:54 | PN ---
Progress Note (short form) - Note Progress Note: Denies any complaints BGM up to 150s off meds No hypos Vital Signs Period Temp Pulse Resp BP Sys/Horne Pulse Ox Last 24 Hr 97.2 F-98.8 F 85-89 18-20 111-142/52-66 98 PE: AOx3 Neck: Supple, No JVD HEENT: EOMI Lungs: CTA CVS: S1S2 Abd: Bening Ext: No edema Neuro: No focal deficit CMP Sodium 135 mmol/L (136-145) L 03/04/17 05:35 Potassium 4.3 mmol/L (3.5-5.1) 03/04/17 05:35 Chloride 98 mmol/L (98-107) 03/04/17 05:35 Carbon Dioxide 26 mmol/L (21-32) 03/04/17 05:35 Anion Gap 11 (8-16) 03/04/17 05:35 BUN 29 mg/dL (7-18) H D 03/04/17 05:35 Creatinine 0.8 mg/dL (0.55-1.02) D 03/04/17 05:35 Creat Clearance w eGFR > 60 (>60) 03/04/17 05:35 POC Glucometer 154 UNITS (()) 03/07/17 05:38 Random Glucose 106 mg/dL (74-106) D 03/04/17 05:35 Hemoglobin A1c % 7.4 % (4.8-6.0) H D 03/04/17 05:35 Calcium 8.8 mg/dL (8.5-10.1) 03/04/17 05:35 Total Bilirubin 0.4 mg/dL (0.2-1.0) 03/04/17 05:35 AST 14 U/L (15-37) L 03/04/17 05:35 ALT 19 U/L (12-78) 03/04/17 05:35 Alkaline Phosphatase 105 U/L (45-117) 03/04/17 05:35 Creatine Kinase 31 IU/L (26-192) 03/04/17 05:35 Troponin I < 0.02 ng/ml (0.00-0.05) 03/04/17 05:35 Total Protein 6.4 g/dl (6.4-8.2) 03/04/17 05:35 Albumin 3.1 g/dl (3.4-5.0) L 03/04/17 05:35 Triglycerides 108 mg/dL (35-160) 03/02/17 13:17 Cholesterol 289 mg/dL (50-200) H 03/02/17 13:17 Total LDL Cholesterol 151 mg/dL (5-100) H 03/02/17 13:17 HDL Cholesterol 118 mg/dL (40-60) H D 03/02/17 13:17 Current Medications Generic Name Dose Route Start Last Admin Trade Name Clarisa PRN Reason Stop Dose Admin Aspirin 81 mg 03/03/17 10:00 03/06/17 09:21 Ecotrin - PO 81 mg DAILY KATIE Administration Atorvastatin Calcium 20 mg 03/03/17 22:00 03/06/17 22:06 Lipitor - PO 20 mg HS KATIE Administration Cholecalciferol 400 unit 03/03/17 10:00 03/06/17 09:21 Vitamin D3 - PO 400 unit DAILY KATIE Administration Docusate Sodium 300 mg 03/02/17 22:00 03/06/17 22:06 Colace - PO 300 mg HS KATIE Administration Heparin Sodium (Porcine) 5,000 unit 03/02/17 22:00 03/06/17 22:06 Heparin - SQ 5,000 unit BID KATIE Administration Insulin Aspart 1 vial 03/03/17 22:00 03/07/17 06:26 Novolog Vial Sliding Scale - SQ Not Given ACHS [facility] Protocol Lisinopril 20 mg 03/02/17 22:00 03/06/17 22:06 Prinivil PO 20 mg HS KATIE Administration Multivit/Ca Carb/B Cmplx/FA/Prenat 1 tablet 03/03/17 10:00 03/06/17 09:20 Nephro-Valentín - PO 1 tablet DAILY KATIE Administration Nifedipine 60 mg 03/03/17 10:00 03/06/17 09:20 Procardia Xl - PO 60 mg DAILY KATIE Administration AP; AMS ? Syncope DM HTN HLD H/O CVA A1c 7.4 Continue to monitor BGM off all antidiabetic agents Off Metformin b/o Wt loss Will consider DPP4 or repaglinide if the blood sugar rises further. BGM QACHS Novolog SS coverage of BGM >200 Will f/u
--- NOTE | 2017-03-07 10:18 | PN ---
Progress Note, Physician Chief Complaint: syncope History of Present Illness: no dizzy, syncope, cp, sob, palpitations - Current Medication List Current Medications: Active Medications Aspirin (Ecotrin -) 81 mg PO DAILY [facility] Last Admin: 03/07/17 09:47 Dose: 81 mg Atorvastatin Calcium (Lipitor -) 20 mg PO HS [facility] Last Admin: 03/06/17 22:06 Dose: 20 mg Cholecalciferol (Vitamin D3 -) 400 unit PO DAILY [facility] Last Admin: 03/07/17 09:48 Dose: 400 unit Docusate Sodium (Colace -) 300 mg PO HS [facility] Last Admin: 03/06/17 22:06 Dose: 300 mg Heparin Sodium (Porcine) (Heparin -) 5,000 unit SQ BID [facility] Last Admin: 03/07/17 09:48 Dose: 5,000 unit Insulin Aspart (Novolog Vial Sliding Scale -) 1 vial SQ [facility] PRN Reason: Protocol Last Admin: 03/07/17 06:26 Dose: Not Given Lisinopril (Prinivil) 20 mg PO [facility] Last Admin: 03/06/17 22:06 Dose: 20 mg Multivit/Ca Carb/B Cmplx/FA/Prenat (Nephro-Valentín -) 1 tablet PO DAILY [facility] Last Admin: 03/07/17 09:47 Dose: 1 tablet Nifedipine (Procardia Xl -) 60 mg PO DAILY [facility] Last Admin: 03/07/17 09:47 Dose: 60 mg - Objective Vital Signs: Vital Signs Temperature 98.1 F 03/07/17 03:22 Pulse Rate 85 03/07/17 03:22 Respiratory Rate 20 03/07/17 03:22 Blood Pressure 111/52 03/07/17 03:22 O2 Sat by Pulse Oximetry (%) 98 03/06/17 20:08 Constitutional: Yes: Well Nourished, No Distress, Calm Cardiovascular: Yes: Regular Rate and Rhythm, S1, S2. No: Gallop, Murmur Respiratory: Yes: Regular, CTA Bilaterally. No: Accessory Muscle Use, Rales, Wheezes Extremities: No: Cold Edema: No Neurological: Yes: Alert, Oriented. No: Seizure Psychiatric: No: Agitated Labs: CBC, BMP 03/04/17 05:35 03/04/17 05:35 INR, PTT INR 0.99 (0.82-1.09) 03/02/17 13:17 - ....Imaging EKG: Other (tele: NSR) Assessment/Plan ecg 03/02/17: sr, nl intervals, no ischemic changes carotids 12/2016: no sig stenosis echo 12/2016: mild lvh, nl lvef, nl rv, mild lae, mild mr/tr cxr: clear lungs head ct: no acute findings a/p: 87 f hx htn, hld, dm, cva here with ams. ams, possible syncope: -details of all 3 recent events are unclear -recent echo and carotid done for this were unremarkable -ecg unremarkable, ce's neg x1 -neuro following--doubts sz (ordered EEG), doubts TIA -? transient hypotension causing syncope (e.g. postprandial hypotension of elderly, though timing of events vis-a-vis meals is unknown) -hypotension not highly likely as the etiology here, given dtr (RN) states the first episode was in SNF and BP checked within few min of event and was normal ( unless hypotension resolved very promptly) -on potent vasodilator (nifedipine 60m) plus VIVIANA--consider outpt bp monitoring or 24 ABPM if she can tolerate this (? with family assistance) -? hypoglycemia--glucose monitoring per pmd (dtr is RN, pt is in SNF--closely monitored -stop thiazide permanently -ecg no ischemia, trop neg x 2 -tele benign--cont monitor while pt in hospital -if no etiol found, will plan outpt 30 day event monitor joanna: -prerenal azotemia, resolved with IVF -agree with dc hctz permanently -monitor cr htn: -stable, monitor on lisinopril and nifedipine. -cautious with uptitration, until transient hypotensive episodes can be ruled out as outpt -bp up 180s early AM today--monitor bp trend -would tolerate systolic BPs to 160s here, at least for the time being, until BP trend can be better understood--revisit this as outpt s/p recent CVA: -here 12/19 s/p fall, developed L hemiparesis--seen by neuro, CT head neg, family declined aggressive w/u then per notes--tx'd with ASA/statin only -cont same meds OK FOR D/C FROM [facility] P.O.V. (awaiting SNF bed)
[2017-03-07] MEDS: VALSARTAN 160 MG TABLET (UD) PO SCH (17:45)
[2017-03-07] MEDS: ATORVASTATIN CA 20 MG TABLET (FP) PO SCH (21:54)
[2017-03-07] MEDS: DOCUSATE SODIUM 100 MG CAPSULE (FP) PO SCH (21:54)
[2017-03-08] MEDS: INSULIN SLIDING SCALE (NOVOLOG) 1 VIAL SQ SCH ×4 (06:36→21:25)
--- NOTE | 2017-03-08 09:20 | PN ---
Progress Note (short form) - Note Progress Note: Patient seen and examined. No acute event overnight. Blood pressure high yesterday evening. BP med switched to valsartan 320 mg daily. Denies chest pain, shortness of breath, palpitation or dizziness. Afebrile. No syncopal episode since admission. 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: Yes: Dementia Cardiovascular: Yes: HTN, Hyperlipdemia Gastrointestinal: Yes: Constipation ...: No - Past Surgical History Past Surgical History: Yes: None - Smoking History Smoking history: Never smoked Have you smoked in the past 12 months: No - Alcohol/Substance Use Hx Alcohol Use: No Home Medications - Allergies Allergies/Adverse Reactions: Allergies Allergy/AdvReac Type Severity Reaction Status Date / Time tramadol Allergy Unknown Verified 03/02/17 13:17 - Home Medications Home Medications: Ambulatory Orders Aspirin [ASA -] 81 mg PO DAILY 12/24/16 Lisinopril 20 mg PO HS 12/24/16 Cholecalciferol (Vitamin D3) [Vitamin D3] 400 unit PO DAILY 03/02/17 Diphenhydramine HCl [Benadryl -] 25 mg PO Q6H PRN 03/02/17 Docusate Sodium [Colace -] 300 mg PO HS 03/02/17 Glipizide [Glipizide ER] 2.5 mg PO DAILY 03/02/17 Heparin Sodium,Porcine/Pf [Heparin Sod 5,000 Unit/ 0.5 ml] 5,000 unit IM BID Hydrochlorothiazide 25 mg PO DAILY 03/02/17 Lactulose [Cephulac -] 10 gm PO PRN 03/02/17 Nifedipine [Procardia Xl] 60 mg PO DAILY 03/02/17 Ondansetron [Zofran -] 4 mg PO BID PRN 03/02/17 Vitamin B Comp W-C [Nephro-Valentín -] 1 tablet PO DAILY 03/02/17 Review of Systems - Review of Systems Constitutional: reports: Lethargy Eyes: reports: No Symptoms HENT: reports: No Symptoms Neck: reports: No Symptoms Cardiovascular: reports: No Symptoms Respiratory: reports: No Symptoms Gastrointestinal: reports: No Symptoms Genitourinary: reports: No Symptoms Musculoskeletal: reports: No Symptoms Integumentary: reports: No Symptoms Neurological: reports: No Symptoms Endocrine: reports: No Symptoms Hematology/Lymphatic: reports: No Symptoms Psychiatric: reports: No Symptoms Physical Examination Vital Signs: Vital Signs Period Temp Pulse Resp BP Sys/Horne Pulse Ox Last 24 Hr 97.3 F-98.3 F 72-96 20-20 129-179/54-89 99 Constitutional: Yes: No Distress, Anxious Eyes: Yes: Conjunctiva Clear, EOM Intact, PERRL HENT: Yes: Atraumatic, Normocephalic Neck: Yes: Supple, Trachea Midline Cardiovascular: Yes: WNL, Regular Rate and Rhythm Respiratory: Yes: Regular, CTA Bilaterally Gastrointestinal: Yes: Normal Bowel Sounds, Soft ...Rectal Exam: Yes: Deferred Musculoskeletal: Yes: WNL Extremities: Yes: WNL Edema: No Peripheral Pulses WNL: Yes Neurological: Yes: Alert, Oriented ...Motor Strength: WNL Psychiatric: Yes: Alert, Oriented Imaging - Results Chest X-ray: Report Reviewed Cat Scan: Report Reviewed Current Medications Aspirin (Ecotrin -) 81 mg PO DAILY [facility] Last Admin: 03/07/17 09:47 Dose: 81 mg Atorvastatin Calcium (Lipitor -) 20 mg PO HS [facility] Last Admin: 03/07/17 21:54 Dose: 20 mg Cholecalciferol (Vitamin D3 -) 400 unit PO DAILY [facility] Last Admin: 03/07/17 09:48 Dose: 400 unit Docusate Sodium (Colace -) 300 mg PO HS [facility] Last Admin: 03/07/17 21:54 Dose: 300 mg Heparin Sodium (Porcine) (Heparin -) 5,000 unit SQ BID [facility] Last Admin: 03/07/17 21:54 Dose: 5,000 unit Insulin Aspart (Novolog Vial Sliding Scale -) 1 vial SQ [facility] PRN Reason: Protocol Last Admin: 03/08/17 06:36 Dose: Not Given Multivit/Ca Carb/B Cmplx/FA/Prenat (Nephro-Valentín -) 1 tablet PO DAILY [facility] Last Admin: 03/07/17 09:47 Dose: 1 tablet Nifedipine (Procardia Xl -) 60 mg PO DAILY [facility] Last Admin: 03/07/17 09:47 Dose: 60 mg Valsartan (Diovan -) 320 mg PO DAILY [facility] Last Admin: 03/07/17 17:45 Dose: 320 mg CBC, BMP 03/04/17 05:35 03/04/17 05:35 Problem List - Problems (1) Syncope Assessment/Plan: None since admission Three episodes in recent past. Neurology and cardiology follow up appreciated. Recommendations noted. Continue aspirin. Stable for discharge Code(s): R55 - SYNCOPE AND COLLAPSE (2) Transient alteration of awareness Assessment/Plan: Neurology and cardiology follow up appreciated. Code(s): R40.4 - TRANSIENT ALTERATION OF AWARENESS (3) Hypertension Assessment/Plan: Decent control after addition of valsartan 320 mg daily. Lisinopril discontinued. Continue procardia xl 60 mg daily and Valsartan 320 mg daily. Hctz discontinued. Low salt diet. Code(s): I10 - ESSENTIAL (PRIMARY) HYPERTENSION (4) Hyperlipidemia Assessment/Plan: Ldl 151. Continue Atorvastatin 20 mg daily. Monitor lfts and cpk. Code(s): E78.5 - HYPERLIPIDEMIA, UNSPECIFIED (5) Stroke Assessment/Plan: Continue aspirin and statin. Code(s): I63.9 - CEREBRAL INFARCTION, UNSPECIFIED (6) Diabetes mellitus Assessment/Plan: BGMs/ISS Glipizide discontinued. Endocrinology consult appreciated. Code(s): E11.9 - TYPE 2 DIABETES MELLITUS WITHOUT COMPLICATIONS Qualifiers: Diabetes mellitus type: type 2 (7) Acute renal failure (ARF) Assessment/Plan: Resolved. Hydrochlorthiazide discontinued. Code(s): N17.9 - ACUTE KIDNEY FAILURE, UNSPECIFIED Patient is stable for discharge back to SNF. Awaiting clearance. Will have event monitor as out patient as per cardiology recommendation. Problem List - Problems (1) Syncope Code(s): R55 - SYNCOPE AND COLLAPSE (2) Transient alteration of awareness Code(s): R40.4 - TRANSIENT ALTERATION OF AWARENESS (3) Hypertension Code(s): I10 - ESSENTIAL (PRIMARY) HYPERTENSION (4) Hyperlipidemia Code(s): E78.5 - HYPERLIPIDEMIA, UNSPECIFIED (5) Stroke Code(s): I63.9 - CEREBRAL INFARCTION, UNSPECIFIED (6) Diabetes mellitus Code(s): E11.9 - TYPE 2 DIABETES MELLITUS WITHOUT COMPLICATIONS Qualifiers: Diabetes mellitus type: type 2 (7) Acute renal failure (ARF) Code(s): N17.9 - ACUTE KIDNEY FAILURE, UNSPECIFIED
[2017-03-08] MEDS: ASPIRIN COATED 81 MG TABLET.EC PO SCH (10:28)
[2017-03-08] MEDS: HEPARIN NA (PORCINE) 5,000 UNITS/ML 1ML VIAL SQ SCH ×2 (10:28→21:21)
[2017-03-08] MEDS: VITAMIN B COMP W-C 1 EA TABLET PO SCH (10:28)
[2017-03-08] MEDS: NIFEdipine E.R 60 MG TABLET (UD) PO SCH (10:28)
[2017-03-08] MEDS: CHOLECALCIFEROL (VITAMIN D3) 400 UNIT TABLET (FP) PO SCH (10:28)
--- NOTE | 2017-03-08 10:32 | PN ---
Progress Note (short form) - Note Progress Note: Chief Complaint: syncope History of Present Illness: no dizzy, syncope, cp, sob, palpitations - Current Medication List Current Medications: Active Medications Current Medications Generic Name Dose Route Start Last Admin Trade Name Clarisa PRN Reason Stop Dose Admin Aspirin 81 mg 03/03/17 10:00 03/08/17 10:28 Ecotrin - PO 81 mg DAILY KATIE Administration Atorvastatin Calcium 20 mg 03/03/17 22:00 03/07/17 21:54 Lipitor - PO 20 mg HS KATIE Administration Cholecalciferol 400 unit 03/03/17 10:00 03/08/17 10:28 Vitamin D3 - PO 400 unit DAILY KATIE Administration Docusate Sodium 300 mg 03/02/17 22:00 03/07/17 21:54 Colace - PO 300 mg HS KATIE Administration Heparin Sodium (Porcine) 5,000 unit 03/02/17 22:00 03/08/17 10:28 Heparin - SQ 5,000 unit BID KATIE Administration Insulin Aspart 1 vial 03/03/17 22:00 03/08/17 06:36 Novolog Vial Sliding Scale - SQ Not Given ACHS [facility] Protocol Multivit/Ca Carb/B Cmplx/FA/Prenat 1 tablet 03/03/17 10:00 03/08/17 10:28 Nephro-Valentín - PO 1 tablet DAILY KATIE Administration Nifedipine 60 mg 03/03/17 10:00 03/08/17 10:28 Procardia Xl - PO 60 mg DAILY KATIE Administration Valsartan 320 mg 03/07/17 17:15 03/07/17 17:45 Diovan - PO 320 mg DAILY KATIE Administration - Objective Vital Signs: Vital Signs Period Temp Pulse Resp BP Sys/Horne Pulse Ox Last 24 Hr 97.3 F-98.3 F 72-96 20-20 129-179/54-89 99 Constitutional: Yes: Well Nourished, No Distress, Calm Cardiovascular: Yes: Regular Rate and Rhythm, S1, S2. No: Gallop, Murmur Respiratory: Yes: Regular, CTA Bilaterally. No: Accessory Muscle Use, Rales, Wheezes Extremities: No: Cold Edema: No Neurological: Yes: Alert, Oriented. No: Seizure Psychiatric: No: Agitated no jaundice diaphoresis Labs: CBC, BMP 03/04/17 05:35 03/04/17 05:35 EKG: Other (tele: NSR) ecg 03/02/17: sr, nl intervals, no ischemic changes carotids 12/2016: no sig stenosis echo 12/2016: mild lvh, nl lvef, nl rv, mild lae, mild mr/tr cxr: clear lungs head ct: no acute findings a/p: 87 f hx htn, hld, dm, cva here with ams. ams, possible syncope: -details of all 3 recent events are unclear -recent echo and carotid done for this were unremarkable -ecg unremarkable, ce's neg x1 -neuro following--doubts sz (ordered EEG), doubts TIA -? transient hypotension causing syncope (e.g. postprandial hypotension of elderly, though timing of events vis-a-vis meals is unknown) -hypotension not highly likely as the etiology here, given dtr (RN) states the first episode was in SNF and BP checked within few min of event and was normal ( unless hypotension resolved very promptly) -on potent vasodilator (nifedipine 60m) plus VIVIANA--consider outpt bp monitoring or 24 ABPM if she can tolerate this (? with family assistance) -? hypoglycemia--glucose monitoring per pmd (dtr is RN, pt is in SNF--closely monitored -stop thiazide permanently -ecg no ischemia, trop neg x 2 -tele benign--cont monitor while pt in hospital -if no etiol found, will plan outpt 30 day event monitor joanna: -prerenal azotemia, resolved with IVF -agree with dc hctz permanently -monitor cr htn: -stable, monitor on current meds -cautious with uptitration, until transient hypotensive episodes can be ruled out as outpt -would tolerate systolic BPs to 160s here, at least for the time being, until BP trend can be better understood--revisit this as outpt s/p recent CVA: -here 12/19 s/p fall, developed L hemiparesis--seen by neuro, CT head neg, family declined aggressive w/u then per notes--tx'd with ASA/statin only -cont same meds OK FOR D/C FROM CV P.O.V. (awaiting SNF bed)
[2017-03-08] MEDS: VALSARTAN 160 MG TABLET (UD) PO SCH ×3 (17:39→21:21)
[2017-03-08] MEDS: ATORVASTATIN CA 20 MG TABLET (FP) PO SCH (21:20)
[2017-03-08] MEDS: DOCUSATE SODIUM 100 MG CAPSULE (FP) PO SCH (21:21)
[2017-03-09] MEDS: INSULIN SLIDING SCALE (NOVOLOG) 1 VIAL SQ SCH ×4 (07:00→21:14)
--- NOTE | 2017-03-09 10:02 | PN ---
Progress Note (short form) - Note Progress Note: Chief Complaint: syncope History of Present Illness: no dizzy, syncope, cp, sob, palpitations - Current Medication List Current Medications: Active Medications Current Medications Generic Name Dose Route Start Last Admin Trade Name Clarisa PRN Reason Stop Dose Admin Aspirin 81 mg 03/03/17 10:00 03/08/17 10:28 Ecotrin - PO 81 mg DAILY KATIE Administration Atorvastatin Calcium 20 mg 03/03/17 22:00 03/08/17 21:20 Lipitor - PO 20 mg HS KATIE Administration Cholecalciferol 400 unit 03/03/17 10:00 03/08/17 10:28 Vitamin D3 - PO 400 unit DAILY KATIE Administration Docusate Sodium 300 mg 03/02/17 22:00 03/08/17 21:21 Colace - PO Not Given HS KATIE Heparin Sodium (Porcine) 5,000 unit 03/02/17 22:00 03/08/17 21:21 Heparin - SQ 5,000 unit BID KATIE Administration Insulin Aspart 1 vial 03/03/17 22:00 03/08/17 21:25 Novolog Vial Sliding Scale - SQ Not Given ACHS [facility] Protocol Multivit/Ca Carb/B Cmplx/FA/Prenat 1 tablet 03/03/17 10:00 03/08/17 10:28 Nephro-Valentín - PO 1 tablet DAILY KATIE Administration Nifedipine 60 mg 03/03/17 10:00 03/08/17 10:28 Procardia Xl - PO 60 mg DAILY KATIE Administration Valsartan 320 mg 03/08/17 18:00 03/08/17 21:21 Diovan - PO 320 mg DAILY@1800 KATIE Administration - Objective Vital Signs: Vital Signs Period Temp Pulse Resp BP Sys/Horne Pulse Ox Last 24 Hr 97.2 F-98.7 F 80-90 18-20 122-150/48-70 100-100 Constitutional: Yes: Well Nourished, No Distress, Calm Cardiovascular: Yes: Regular Rate and Rhythm, S1, S2. No: Gallop, Murmur Respiratory: Yes: Regular, CTA Bilaterally. No: Accessory Muscle Use, Rales, Wheezes Extremities: No: Cold Edema: No Neurological: Yes: Alert, Oriented. No: Seizure Psychiatric: No: Agitated no jaundice diaphoresis Labs: CBC, BMP 03/04/17 05:35 03/04/17 05:35 EKG: Other (tele: NSR) ecg 03/02/17: sr, nl intervals, no ischemic changes carotids 12/2016: no sig stenosis echo 12/2016: mild lvh, nl lvef, nl rv, mild lae, mild mr/tr cxr: clear lungs head ct: no acute findings a/p: 87 f hx htn, hld, dm, cva here with ams. ams, possible syncope: -details of all 3 recent events are unclear -recent echo and carotid done for this were unremarkable -ecg unremarkable, ce's neg x1 -neuro following--doubts sz (ordered EEG), doubts TIA -? transient hypotension causing syncope (e.g. postprandial hypotension of elderly, though timing of events vis-a-vis meals is unknown) -hypotension not highly likely as the etiology here, given dtr (RN) states the first episode was in SNF and BP checked within few min of event and was normal ( unless hypotension resolved very promptly) -on potent vasodilator (nifedipine 60m) plus VIVIANA--consider outpt bp monitoring or 24 ABPM if she can tolerate this (? with family assistance) -? hypoglycemia--glucose monitoring per pmd (dtr is RN, pt is in SNF--closely monitored -stop thiazide permanently -ecg no ischemia, trop neg x 2 -tele benign--cont monitor while pt in hospital -if no etiol found, will plan outpt 30 day event monitor joanna: -prerenal azotemia, resolved with IVF -agree with dc hctz permanently -monitor cr htn: -stable, cont procardia and diovan (will decrease dose to 160 to avoid hypotension) -cautious with uptitration, until transient hypotensive episodes can be ruled out as outpt -would tolerate systolic BPs to 160s here, at least for the time being, until BP trend can be better understood--revisit this as outpt s/p recent CVA: -here 12/19 s/p fall, developed L hemiparesis--seen by neuro, CT head neg, family declined aggressive w/u then per notes--tx'd with ASA/statin only -cont same meds OK FOR D/C FROM CV P.O.V. (awaiting SNF bed)
[2017-03-09] MEDS: CHOLECALCIFEROL (VITAMIN D3) 400 UNIT TABLET (FP) PO SCH (10:12)
[2017-03-09] MEDS: HEPARIN NA (PORCINE) 5,000 UNITS/ML 1ML VIAL SQ SCH ×2 (10:12→21:14)
[2017-03-09] MEDS: ASPIRIN COATED 81 MG TABLET.EC PO SCH (10:12)
[2017-03-09] MEDS: NIFEdipine E.R 60 MG TABLET (UD) PO SCH (10:12)
[2017-03-09] MEDS: VITAMIN B COMP W-C 1 EA TABLET PO SCH (10:12)
[2017-03-09] MEDS ORDERED: VALSARTAN 160 MG TABLET (UD) PO SCH (18:00)
--- NOTE | 2017-03-09 18:44 | PN ---
Progress Note (short form) - Note Progress Note: Patient seen and examined. No acute event overnight. Daughter not happy with diovan 320 mg dose. Discussed and will reduce to 160 mg daily. 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: Yes: Dementia Cardiovascular: Yes: HTN, Hyperlipdemia Gastrointestinal: Yes: Constipation ...: No - Past Surgical History Past Surgical History: Yes: None - Smoking History Smoking history: Never smoked Have you smoked in the past 12 months: No - Alcohol/Substance Use Hx Alcohol Use: No Home Medications - Allergies Allergies/Adverse Reactions: Allergies Allergy/AdvReac Type Severity Reaction Status Date / Time tramadol Allergy Unknown Verified 03/02/17 13:17 - Home Medications Home Medications: Ambulatory Orders Aspirin [ASA -] 81 mg PO DAILY 12/24/16 Lisinopril 20 mg PO HS 12/24/16 Cholecalciferol (Vitamin D3) [Vitamin D3] 400 unit PO DAILY 03/02/17 Diphenhydramine HCl [Benadryl -] 25 mg PO Q6H PRN 03/02/17 Docusate Sodium [Colace -] 300 mg PO HS 03/02/17 Glipizide [Glipizide ER] 2.5 mg PO DAILY 03/02/17 Heparin Sodium,Porcine/Pf [Heparin Sod 5,000 Unit/ 0.5 ml] 5,000 unit IM BID Hydrochlorothiazide 25 mg PO DAILY 03/02/17 Lactulose [Cephulac -] 10 gm PO PRN 03/02/17 Nifedipine [Procardia Xl] 60 mg PO DAILY 03/02/17 Ondansetron [Zofran -] 4 mg PO BID PRN 03/02/17 Vitamin B Comp W-C [Nephro-Valentín -] 1 tablet PO DAILY 03/02/17 Review of Systems - Review of Systems Constitutional: reports: Lethargy Eyes: reports: No Symptoms HENT: reports: No Symptoms Neck: reports: No Symptoms Cardiovascular: reports: No Symptoms Respiratory: reports: No Symptoms Gastrointestinal: reports: No Symptoms Genitourinary: reports: No Symptoms Musculoskeletal: reports: No Symptoms Integumentary: reports: No Symptoms Neurological: reports: No Symptoms Endocrine: reports: No Symptoms Hematology/Lymphatic: reports: No Symptoms Psychiatric: reports: No Symptoms Physical Examination Vital Signs: Vital Signs Period Temp Pulse Resp BP Sys/Horne Pulse Ox Last 24 Hr 97.2 F-98.7 F 80-94 18-20 141-160/59-70 100-100 Constitutional: Yes: No Distress, Anxious Eyes: Yes: Conjunctiva Clear, EOM Intact, PERRL HENT: Yes: Atraumatic, Normocephalic Neck: Yes: Supple, Trachea Midline Cardiovascular: Yes: WNL, Regular Rate and Rhythm Respiratory: Yes: Regular, CTA Bilaterally Gastrointestinal: Yes: Normal Bowel Sounds, Soft ...Rectal Exam: Yes: Deferred Musculoskeletal: Yes: WNL Extremities: Yes: WNL Edema: No Peripheral Pulses WNL: Yes Neurological: Yes: Alert, Oriented ...Motor Strength: WNL Psychiatric: Yes: Alert, Oriented Imaging - Results Chest X-ray: Report Reviewed Cat Scan: Report Reviewed Current Medications Aspirin (Ecotrin -) 81 mg PO DAILY [facility] Last Admin: 03/07/17 09:47 Dose: 81 mg Atorvastatin Calcium (Lipitor -) 20 mg PO HS [facility] Last Admin: 03/07/17 21:54 Dose: 20 mg Cholecalciferol (Vitamin D3 -) 400 unit PO DAILY [facility] Last Admin: 03/07/17 09:48 Dose: 400 unit Docusate Sodium (Colace -) 300 mg PO HS [facility] Last Admin: 03/07/17 21:54 Dose: 300 mg Heparin Sodium (Porcine) (Heparin -) 5,000 unit SQ BID [facility] Last Admin: 03/07/17 21:54 Dose: 5,000 unit Insulin Aspart (Novolog Vial Sliding Scale -) 1 vial SQ ACH[facility] PRN Reason: Protocol Last Admin: 03/08/17 06:36 Dose: Not Given Multivit/Ca Carb/B Cmplx/FA/Prenat (Nephro-Valentín -) 1 tablet PO DAILY [facility] Last Admin: 03/07/17 09:47 Dose: 1 tablet Nifedipine (Procardia Xl -) 60 mg PO DAILY [facility] Last Admin: 03/07/17 09:47 Dose: 60 mg Valsartan (Diovan -) 320 mg PO DAILY [facility] Last Admin: 03/07/17 17:45 Dose: 320 mg CBC, BMP 03/04/17 05:35 03/04/17 05:35 Problem List - Problems (1) Syncope Assessment/Plan: None since admission Three episodes in recent past. Neurology and cardiology follow up appreciated. Recommendations noted. Continue aspirin. Stable for discharge Code(s): R55 - SYNCOPE AND COLLAPSE (2) Transient alteration of awareness Assessment/Plan: Neurology and cardiology follow up appreciated. Code(s): R40.4 - TRANSIENT ALTERATION OF AWARENESS (3) Hypertension Assessment/Plan: Will decrease the dose of valsartan to 160 mg daily. Lisinopril discontinued. Continue procardia xl 60 mg daily and Valsartan 160 mg daily. Hctz discontinued. Low salt diet. Code(s): I10 - ESSENTIAL (PRIMARY) HYPERTENSION (4) Hyperlipidemia Assessment/Plan: Ldl 151. Continue Atorvastatin 20 mg daily. Monitor lfts and cpk. Code(s): E78.5 - HYPERLIPIDEMIA, UNSPECIFIED (5) Stroke Assessment/Plan: Continue aspirin and statin. Code(s): I63.9 - CEREBRAL INFARCTION, UNSPECIFIED (6) Diabetes mellitus Assessment/Plan: BGMs/ISS Glipizide discontinued. Endocrinology consult appreciated. Code(s): E11.9 - TYPE 2 DIABETES MELLITUS WITHOUT COMPLICATIONS Qualifiers: Diabetes mellitus type: type 2 (7) Acute renal failure (ARF) Assessment/Plan: Resolved. Hydrochlorthiazide discontinued. Code(s): N17.9 - ACUTE KIDNEY FAILURE, UNSPECIFIED Patient is stable for discharge back to SNF. Awaiting clearance. Will have event monitor as out patient as per cardiology recommendation. Problem List - Problems (1) Syncope Code(s): R55 - SYNCOPE AND COLLAPSE (2) Transient alteration of awareness Code(s): R40.4 - TRANSIENT ALTERATION OF AWARENESS (3) Hypertension Code(s): I10 - ESSENTIAL (PRIMARY) HYPERTENSION (4) Hyperlipidemia Code(s): E78.5 - HYPERLIPIDEMIA, UNSPECIFIED (5) Stroke Code(s): I63.9 - CEREBRAL INFARCTION, UNSPECIFIED (6) Diabetes mellitus Code(s): E11.9 - TYPE 2 DIABETES MELLITUS WITHOUT COMPLICATIONS Qualifiers: Diabetes mellitus type: type 2 (7) Acute renal failure (ARF) Code(s): N17.9 - ACUTE KIDNEY FAILURE, UNSPECIFIED
[2017-03-09] MEDS: ATORVASTATIN CA 20 MG TABLET (FP) PO SCH (21:14)
[2017-03-09] MEDS: DOCUSATE SODIUM 100 MG CAPSULE (FP) PO SCH (21:14)
[2017-03-10] MEDS: INSULIN SLIDING SCALE (NOVOLOG) 1 VIAL SQ SCH ×2 (06:11→11:29)
[2017-03-10] MEDS: NIFEdipine E.R 60 MG TABLET (UD) PO SCH (09:29)
[2017-03-10] MEDS: VITAMIN B COMP W-C 1 EA TABLET PO SCH (09:30)
[2017-03-10] MEDS: CHOLECALCIFEROL (VITAMIN D3) 400 UNIT TABLET (FP) PO SCH (09:30)
[2017-03-10] MEDS: ASPIRIN COATED 81 MG TABLET.EC PO SCH (09:30)
[2017-03-10] MEDS ORDERED: VALSARTAN 80 MG TABLET (UD) PO SCH (10:02)
--- NOTE | 2017-03-10 10:09 | PN ---
Progress Note (short form) - Note Progress Note: Awaiting clearance from the insurance to go back to rehab. No acute overnight. Her blood pressure has been running high. Valsartan dose was reduced as per daughter wish yesterday and since then the pressure has been running high. Discussed in detail with the daughter and explained the risk of running high BP including stroke. She agreed to increase the dose of valsartan to 240 mg daily. Denies chest pain, shortness of breath, palpitation or dizziness. 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 Cardiovascular: Yes: HTN, Hyperlipdemia Gastrointestinal: Yes: Constipation ...: No - Past Surgical History Past Surgical History: Yes: None - Smoking History Smoking history: Never smoked Have you smoked in the past 12 months: No - Alcohol/Substance Use Hx Alcohol Use: No Home Medications - Allergies Allergies/Adverse Reactions: Allergies Allergy/AdvReac Type Severity Reaction Status Date / Time tramadol Allergy Unknown Verified 03/02/17 13:17 - Home Medications Home Medications: Ambulatory Orders Aspirin [ASA -] 81 mg PO DAILY 12/24/16 Lisinopril 20 mg PO HS 12/24/16 Cholecalciferol (Vitamin D3) [Vitamin D3] 400 unit PO DAILY 03/02/17 Diphenhydramine HCl [Benadryl -] 25 mg PO Q6H PRN 03/02/17 Docusate Sodium [Colace -] 300 mg PO HS 03/02/17 Glipizide [Glipizide ER] 2.5 mg PO DAILY 03/02/17 Heparin Sodium,Porcine/Pf [Heparin Sod 5,000 Unit/ 0.5 ml] 5,000 unit IM BID Hydrochlorothiazide 25 mg PO DAILY 03/02/17 Lactulose [Cephulac -] 10 gm PO PRN 03/02/17 Nifedipine [Procardia Xl] 60 mg PO DAILY 03/02/17 Ondansetron [Zofran -] 4 mg PO BID PRN 03/02/17 Vitamin B Comp W-C [Nephro-Valentín -] 1 tablet PO DAILY 03/02/17 Review of Systems - Review of Systems Constitutional: reports: Lethargy Eyes: reports: No Symptoms HENT: reports: No Symptoms Neck: reports: No Symptoms Cardiovascular: reports: No Symptoms Respiratory: reports: No Symptoms Gastrointestinal: reports: No Symptoms Genitourinary: reports: No Symptoms Musculoskeletal: reports: No Symptoms Integumentary: reports: No Symptoms Neurological: reports: No Symptoms Endocrine: reports: No Symptoms Hematology/Lymphatic: reports: No Symptoms Psychiatric: reports: No Symptoms Physical Examination Vital Signs: Vital Signs Period Temp Pulse Resp BP Sys/Horne Pulse Ox Last 24 Hr 97.8 F-98.8 F 83-94 18-20 142-185/59-93 98-100 Constitutional: Yes: No Distress, Anxious Eyes: Yes: Conjunctiva Clear, EOM Intact, PERRL HENT: Yes: Atraumatic, Normocephalic Neck: Yes: Supple, Trachea Midline Cardiovascular: Yes: WNL, Regular Rate and Rhythm Respiratory: Yes: Regular, CTA Bilaterally Gastrointestinal: Yes: Normal Bowel Sounds, Soft ...Rectal Exam: Yes: Deferred Musculoskeletal: Yes: WNL Extremities: Yes: WNL Edema: No Peripheral Pulses WNL: Yes Neurological: Yes: Alert, Oriented ...Motor Strength: WNL Psychiatric: Yes: Alert, Oriented Imaging - Results Chest X-ray: Report Reviewed Cat Scan: Report Reviewed Current Medications Aspirin (Ecotrin -) 81 mg PO DAILY [facility] Last Admin: 03/10/17 09:30 Dose: 81 mg Atorvastatin Calcium (Lipitor -) 20 mg PO [facility] Last Admin: 03/09/17 21:14 Dose: 20 mg Cholecalciferol (Vitamin D3 -) 400 unit PO DAILY [facility] Last Admin: 03/10/17 09:30 Dose: 400 unit Docusate Sodium (Colace -) 300 mg PO [facility] Last Admin: 03/09/17 21:14 Dose: Not Given Insulin Aspart (Novolog Vial Sliding Scale -) 1 vial SQ [facility] PRN Reason: Protocol Last Admin: 03/10/17 06:11 Dose: Not Given Multivit/Ca Carb/B Cmplx/FA/Prenat (Nephro-Valentín -) 1 tablet PO DAILY [facility] Last Admin: 03/10/17 09:30 Dose: 1 tablet Nifedipine (Procardia Xl -) 60 mg PO DAILY [facility] Last Admin: 03/10/17 09:29 Dose: 60 mg Valsartan (Diovan -) 240 mg PO DAILY@1800 [facility] CBC, BMP 03/04/17 05:35 03/04/17 05:35 Problem List - Problems (1) Syncope Assessment/Plan: None since admission Three episodes in recent past. Neurology and cardiology follow up appreciated. Recommendations noted. Continue aspirin. Stable for discharge Code(s): R55 - SYNCOPE AND COLLAPSE (2) Transient alteration of awareness Assessment/Plan: Neurology and cardiology follow up appreciated. Code(s): R40.4 - TRANSIENT ALTERATION OF AWARENESS (3) Hypertension Assessment/Plan: High. Increase valsartan to 240 mg daily. Continue procardia xl 60 mg daily. Hctz discontinued/Carvedilol discontinued in recent past as per daughter wish. Low salt diet. Code(s): I10 - ESSENTIAL (PRIMARY) HYPERTENSION (4) Hyperlipidemia Assessment/Plan: Ldl 151. Continue Atorvastatin 20 mg daily. Monitor lfts and cpk. Code(s): E78.5 - HYPERLIPIDEMIA, UNSPECIFIED (5) Stroke Assessment/Plan: Continue aspirin and statin. Code(s): I63.9 - CEREBRAL INFARCTION, UNSPECIFIED (6) Diabetes mellitus Assessment/Plan: BGMs/ISS Glipizide discontinued. Endocrinology consult appreciated. Code(s): E11.9 - TYPE 2 DIABETES MELLITUS WITHOUT COMPLICATIONS Qualifiers: Diabetes mellitus type: type 2 (7) Acute renal failure (ARF) Assessment/Plan: Resolved. Hydrochlorthiazide discontinued. Code(s): N17.9 - ACUTE KIDNEY FAILURE, UNSPECIFIED Patient is stable for discharge back to SNF. Awaiting clearance. Will have event monitor as out patient as per cardiology recommendation. Problem List - Problems (1) Syncope Code(s): R55 - SYNCOPE AND COLLAPSE (2) Transient alteration of awareness Code(s): R40.4 - TRANSIENT ALTERATION OF AWARENESS (3) Hypertension Code(s): I10 - ESSENTIAL (PRIMARY) HYPERTENSION (4) Hyperlipidemia Code(s): E78.5 - HYPERLIPIDEMIA, UNSPECIFIED (5) Stroke Code(s): I63.9 - CEREBRAL INFARCTION, UNSPECIFIED (6) Diabetes mellitus Code(s): E11.9 - TYPE 2 DIABETES MELLITUS WITHOUT COMPLICATIONS Qualifiers: Diabetes mellitus type: type 2 (7) Acute renal failure (ARF) Code(s): N17.9 - ACUTE KIDNEY FAILURE, UNSPECIFIED
--- NOTE | 2017-03-10 10:52 | PN ---
Progress Note (short form) - Note Progress Note: Chief Complaint: syncope History of Present Illness: no dizzy, syncope, cp, sob, palpitations - Current Medication List Current Medications: Active Medications Current Medications Generic Name Dose Route Start Last Admin Trade Name Clarisa PRN Reason Stop Dose Admin Aspirin 81 mg 03/03/17 10:00 03/10/17 09:30 Ecotrin - PO 81 mg DAILY KATIE Administration Atorvastatin Calcium 20 mg 03/03/17 22:00 03/09/17 21:14 Lipitor - PO 20 mg HS KATIE Administration Cholecalciferol 400 unit 03/03/17 10:00 03/10/17 09:30 Vitamin D3 - PO 400 unit DAILY KATIE Administration Docusate Sodium 300 mg 03/02/17 22:00 03/09/17 21:14 Colace - PO Not Given HS KATIE Insulin Aspart 1 vial 03/03/17 22:00 03/10/17 06:11 Novolog Vial Sliding Scale - SQ Not Given ACHS [facility] Protocol Multivit/Ca Carb/B Cmplx/FA/Prenat 1 tablet 03/03/17 10:00 03/10/17 09:30 Nephro-Valentín - PO 1 tablet DAILY KATIE Administration Nifedipine 60 mg 03/03/17 10:00 03/10/17 09:29 Procardia Xl - PO 60 mg DAILY KATIE Administration Valsartan 240 mg 03/10/17 10:02 Diovan - PO DAILY@1800 [facility] - Objective Vital Signs: Vital Signs Period Temp Pulse Resp BP Sys/Horne Pulse Ox Last 24 Hr 97.8 F-98.8 F 87-94 18-20 142-185/59-93 98-100 Constitutional: Yes: Well Nourished, No Distress, Calm Cardiovascular: Yes: Regular Rate and Rhythm, S1, S2. No: Gallop, Murmur Respiratory: Yes: Regular, CTA Bilaterally. No: Accessory Muscle Use, Rales, Wheezes Extremities: No: Cold Edema: No Neurological: Yes: Alert, Oriented. No: Seizure Psychiatric: No: Agitated no jaundice diaphoresis Labs: CBC, BMP 03/04/17 05:35 03/04/17 05:35 EKG: Other (tele: NSR) ecg 03/02/17: sr, nl intervals, no ischemic changes carotids 12/2016: no sig stenosis echo 12/2016: mild lvh, nl lvef, nl rv, mild lae, mild mr/tr cxr: clear lungs head ct: no acute findings a/p: 87 f hx htn, hld, dm, cva here with ams. ams, possible syncope: -details of all 3 recent events are unclear -recent echo and carotid done for this were unremarkable -ecg unremarkable, ce's neg x1 -neuro following--doubts sz (ordered EEG), doubts TIA -? transient hypotension causing syncope (e.g. postprandial hypotension of elderly, though timing of events vis-a-vis meals is unknown) -hypotension not highly likely as the etiology here, given dtr (RN) states the first episode was in SNF and BP checked within few min of event and was normal ( unless hypotension resolved very promptly) -on potent vasodilator (nifedipine 60m) plus VIVIANA--consider outpt bp monitoring or 24 ABPM if she can tolerate this (? with family assistance) -? hypoglycemia--glucose monitoring per pmd (dtr is RN, pt is in SNF--closely monitored -stop thiazide permanently -ecg no ischemia, trop neg x 2 -tele benign--cont monitor while pt in hospital -if no etiol found, will plan outpt 30 day event monitor joanna: -prerenal azotemia, resolved with IVF -agree with dc hctz permanently htn: - cont procardia and diovan (agree with increased dose 160-->240 given elevated BPs still) -would tolerate systolic BPs to 160s here, at least for the time being, until BP trend can be better understood--revisit this as outpt s/p recent CVA: -here 12/19 s/p fall, developed L hemiparesis--seen by neuro, CT head neg, family declined aggressive w/u then per notes--tx'd with ASA/statin only -cont same meds OK FOR D/C FROM CV P.O.V. (awaiting SNF bed)
[2017-03-10 14:05] VITALS: BP 134/60; PULSE 73; TEMP 99
== END 2017-03-10 16:00 | DRG 312 ==
LOC: JER 12:44 → OBSVTOIN 14:25 → JERBED 14:25 → J4S 17:00 → J4W 19:15
PROVIDERS: ADMIT Internal Medicine Geriatric Medicine; ATTEND Internal Medicine Geriatric Medicine
PROC: 4A00X4Z Measurement of Central Nervous Electrical Activity, External Approach (ICD-10-PCS; principal; 2017-03-06)
DX: R55 Syncope and collapse (principal); N17.9 Acute kidney failure, unspecified; E87.5 Hyperkalemia; D72.829 Elevated white blood cell count, unspecified; I10 Essential (primary) hypertension; E11.9 Type 2 diabetes mellitus without complications; E78.5 Hyperlipidemia, unspecified; R40.4 Transient alteration of awareness; Z86.73 Personal history of transient ischemic attack (TIA), and cerebral infarction without residual deficits; Z79.84 Long term (current) use of oral hypoglycemic drugs
CPT/HCPCS: 36415; 70450-TC; 71010-TC; 80053; 81003; 81015; 82465; 82550; 83036; 83718; 83721; 84478; 84484; 85025; 85610; 86850; 86900; 86901; 93005; 93010; 95816; 97116-GP; 97161-GP; 99285-25; J1644